=== PATIENT | female | born 1950 | race Caucasian/White ===

== ENCOUNTER 2023-06-29 13:07 | Outpatient (OUT) | payer MEDICARE, SELFPAY ==
--- NOTE | 2023-06-29 16:17 | PM.CN ---
Consult Note: HPI Data of Consult Patient: new to practice Consult date: 06/29/23 Requesting Physician: Sacha Good MD Primary Care Provider: CAR BLANCO Consult Narrative Reason for consult: right low back, right hip pain Narrative: 73yof who presents for evaluation. worsening right low back and hip pain. tender to palpation over right greater trochanter. engages in provider directed home exercise course >6 weeks >3x/week, with minimal benefit. uses otc pain medications as needed. lumbar imaging reviewed, which is significant for significant facet arthropathy in lower lumbar spine, as well as stenosis at l4-5 and l5-s1. denies adverse med side effects. cc:: CC: Sacha Good MD Review of Systems ROS Status of ROS 10 or more systems reviewed and unremarkable except as noted in history and below Exam Narrative Exam Narrative: Psych-alert and oriented x 3. Attentive and appropriate, constitutionally normal, displays normal mood and affect per situation.? There are no obvious deficits in memory, reasoning, or intellect.? Skin-no obvious rashes, bruising, erythema noted to the patient's area of pain. Extremities- extremities are warm with minimal edema and palpable pulses. Lumbar- tenderness to palpation noted in the lumbar spine and paraspinal musculature.?Tender to palpation over right greater trochanter. Pain is elicited with extension, and lateral rotation of the lumbar spine. Range of motion is slightly diminished with these motions due to pain. Facet loading maneuvers are positive bilaterally and do appear to be concordant with the patient's normal complaints of pain.? Coordination remains intact.? Gait remains non-antalgic. Assessment and Plan Assessment and Plan (1) Lumbar spondylosis: (2) Lumbar stenosis with neurogenic claudication: (3) Sacroiliac joint disease: (4) Trochanteric bursitis of right hip: Plan 73yof who presents for evaluation. failed conservative measures. imaging reviewed, as noted. given symptoms and exam findings, will trial right greater troch bursa injection. she is in agreement. if pain persists, given tenderness over right psis, may require block of nerve innervating sij. she expressed understanding. meds reviewed, no changes. follow up in 4 weeks. Procedure: Right greater troch bursa injection Medications: Bupivacaine 0.25% 4cc, kenalog 40mg I explained the details of the procedure to the patient including the risks, benefits and alternatives. We had an informed discussion and the patient verbalized understanding and signed the consent form. All questions were answered appropriately.? A time out was performed.?The skin overlying the right lateral hip were prepped with alcohol x3. A sterile syringe containing the above medications was attached to a 25 guage, 3.5 inch needle under strict aseptic technique. The greater trochanter and point of tenderness was palpated. At this point, the needle was than advanced through the subcutaneous tissue down to os. The needle was withdrawn slightly and the contents of the syringe were gently injected without any resistance. The needle was removed and pressure was applied to the injection site to decrease the incidence of ecchymosis and hematoma formation.? A sterile bandage was applied.
== END 2023-06-29 13:08 | disposition home or self-care (01) ==
PROVIDERS: PCP Family Medicine; Visit Provider Anesthesiology
DX: M47.816 Spondylosis without myelopathy or radiculopathy, lumbar region (principal); M48.062 Spinal stenosis, lumbar region with neurogenic claudication; M53.3 Sacrococcygeal disorders, not elsewhere classified; M70.61 Trochanteric bursitis, right hip
CPT/HCPCS: 20610

== ENCOUNTER 2023-07-27 14:28 | Outpatient (OUT) | payer MEDICARE, SELFPAY ==
--- NOTE | 2023-07-27 15:46 | PM.CN ---
Consult Note: HPI Data of Consult Patient: known to practice within the last 3 years Consult date: 07/27/23 Requesting Physician: Yulissa Bro NP Primary Care Provider: CAR BLANCO Consult Narrative Reason for consult: low back, right hip and leg pain Narrative: 73yof who presents for assessment. notes significant relief temporarily after her right troch bursa injection. continues to now have symptoms into right hip and leg. imaging reviewed, which is significant for multiple levels of stenosis, worst at l3-4 and l4-5. continues in provider directed home exercise program >6 weeks >3x/week, with limited benefit. continues to use otc meds as needed. cc:: CC: Yulissa Bro NP Review of Systems ROS Status of ROS 10 or more systems reviewed and unremarkable except as noted in history and below Meds Home Medications and Allergies Home Medications Medication Instructions Recorded Confirmed Type alprazolam 0.5 mg tablet 0.5 mg PO DAILY 07/02/23 07/02/23 History cholestyramine (with sugar) 4 gram ea 07/02/23 History oral powder levothyroxine 125 mcg capsule 125 mcg PO DAILY 07/02/23 07/02/23 History rosuvastatin 40 mg tablet 40 mg PO DAILY 07/02/23 07/02/23 History rosuvastatin 40 mg tablet (Crestor) 40 mg PO DAILY 07/02/23 07/02/23 History sertraline 50 mg tablet 50 mg PO DAILY 07/02/23 07/02/23 History Allergies Allergy/AdvReac Type Severity Reaction Status Date / Time No Known Drug Allergies Allergy Verified 07/02/23 07:51 Exam Narrative Exam Narrative: Psych-alert and oriented x 3. Attentive and appropriate, constitutionally normal, displays normal mood and affect per situation. There are no obvious deficits in memory, reasoning, or intellect.? Skin-no obvious rashes, bruising, erythema noted to the patient's area of pain.? Extremities- extremities are warm with minimal edema and palpable pulses. Lumbar-tenderness to palpation noted in the lumbar spine and paraspinal musculature. Pain is elicited with flexion, extension, and lateral rotation of the lumbar spine. Range of motion is diminished with these motions. Facet loading maneuvers are positive.? Strength-noted to be unremarkable with the exception of decreased strength rated at 4 out of 5 in right quadriceps femoris, anterior tibialis. Sensory-no notable sensory deficits in the bilateral lower extremities to touch or pinprick in all dermatomal distributions with the exception to decreased sensation to the right L3, 4, 5 dermatomal distribution Sacroiliac: Tenderness to palpation of right PSIS. Right thigh thrust positive. Right Gregor's test positive. Coordination remains intact.? Gait remains non-antalgic. Assessment and Plan Assessment and Plan (1) Lumbar stenosis with neurogenic claudication: (2) Sacroiliac joint disease: Plan 73yof who presents for assessment. failed conservative measures, as noted. imaging reviewed, as noted. given symptoms and imaging, prudent to attempt right l3-4, l4-5 tfesi under fluoroscopic guidance. would also likely benefit from right SI joint injection. she is in agreement. medications reviewed, no changes. follow up after procedure.
== END 2023-07-27 14:29 | disposition home or self-care (01) ==
PROVIDERS: PCP Family Medicine; Visit Provider Anesthesiology
DX: M48.062 Spinal stenosis, lumbar region with neurogenic claudication (principal); M53.3 Sacrococcygeal disorders, not elsewhere classified
CPT/HCPCS: G0463

== ENCOUNTER 2023-08-31 07:49 | Day surgery (SDC) | payer MEDICARE, SELFPAY ==
--- OUTSIDE RECORDS SUMMARY | 2023-08-31 07:52 | XMS_ITS | CCD ---
Author Name Unknown Address [facility] [address] [place] [address] Organization [facility] Care Team Providers Care Roll Scale Worker Name Role Phone JOSHUA CARY Attending Unavailable BUNTING, CAR R Primary Care Unavailable ZANOTTI, JOSHUA Attending Unavailable BUNTING, CAR R Primary Care Unavailable ZANOTTI, JOSHUA Attending Unavailable BUNTING, CAR R Primary Care Unavailable ZANOTTI, JOSHUA Admitting Unavailable ZANOTTI, JOSHUA Attending Unavailable BUNTING, CAR R Primary Care Unavailable ZANOTTI, JOSHUA Admitting Unavailable ZANOTTI, JOSHUA Attending Unavailable BUNTING, CAR R Primary Care Unavailable ZANOTTI, JOSHUA Attending Unavailable BUNTING, CAR R Primary Care Unavailable BUNTING, CAR R Primary Care Unavailable HARASTY, JOSHUA Attending Unavailable ZANOTTI, PONCHO Attending Unavailable BUNTING, CAR R Primary Care Unavailable ZANOTTI, JOSHUA Attending Unavailable BUNTING, CAR R Primary Care Unavailable ZANOTTI, JOSHUA Attending Unavailable BUNTING, CAR R Primary Care Unavailable ZANOTTI, JOSHUA Attending Unavailable BUNTING, CAR R Primary Care Unavailable ZANOTTI, JOSHUA Admitting Unavailable ZANOTTI, JOSHUA Attending Unavailable BUNTING, CAR R Primary Care Unavailable ZANOTTI, JOSHUA Attending Unavailable BUNTING, CAR R Primary Care Unavailable ZANOTTI, JOSHUA Admitting Unavailable ZANOTTI, JOSHUA Attending Unavailable BUNTING, CAR R Primary Care Unavailable Ag Mederos Unavailable Roger Khalil Unavailable DO Car Dong Primary Care Provider [phone] DO Arnold Hernandez Attending Provider [phone] MD Roger Khalil Attending Provider DO Segun Funk Attending Provider [phone] Bunting, DO Car Primary Care Provider Bunting, DO Car Attending Provider [phone] Itzkowitz, DO Arnold Attending Provider Joshua Valentin II Unavailable Bunting, DO Car Primary Care Provider Bunting, DO Car Attending Provider [phone] Itzkowitz, DO Arnold Attending Provider [phone] MD Joshua Valentin II Attending Provider [phone] Bunting, DO Car Primary Care Provider TI PIERRE Attending Unavailable Bunting, DO Car Primary Care Provider Bunting, DO Car Attending Provider Itzkowitz, Arnold Attending Unavailable Itzkowitz, Arnold Admitting Unavailable Bunting, Car Primary Care Unavailable Bunting, Car Admitting Unavailable Bunting, Car Primary Care Unavailable Bunting, Car Attending Unavailable Bunting, Car Attending Unavailable Bunting, Car Admitting Unavailable Bunting, Car Primary Care Unavailable Bunting, Car Attending Unavailable Bunting, Car Admitting Unavailable Bunting, Car Primary Care Unavailable [place] II, Joshua Wells Admitting Unavailabl e [place] II, Joshua Wells Attending Unavailabl e Bunting, Car Primary Care Unavailable [place] II, Joshua Wells Admitting Unavailabl e Homero II, Joshua Wells Attending Unavailabl e Bunting, Car Primary Care Unavailable Bunting, Car Primary Care Unavailable Itzkowitz, Arnold Admitting Unavailable Itzkowitz, Arnold Attending Unavailable Bunting, Car Attending Unavailable Bunting, Car Admitting Unavailable Bunting, Car Primary Care Unavailable Segun Funk Admitting Unavailable Segun Funk Attending Unavailable Bunting, Car Primary Care Unavailable Roger Khalil Admitting Unavailable Roger Khalil Attending Unavailable Bunting, Car Primary Care Unavailable Florentino MARTELL, Sacha Masters Attending Unavailable Florentino MARTELL, Sacha Masters Attending Unavailable Medications Current Medications Medication Drug Class(es) Dates Sig (Normalized) Sig (Original) acetaminophen 500 mg oral tablet (3 sources) take 1 tablet by mouth every six hours as needed Acetaminophen 500 MG 1 tablet as needed Orally every 6 hrs Active acetaminophen 325 mg / HYDROcodone bitartrate 5 mg oral tablet (6 sources) Opioid Agonist Start: 01-06-2022 take 1-2 tablets by mouth every six hours as needed for pain Hydrocodone-Acetami nophen Active 2 TAB PO Q6H 30 7 January 06, 2022 1-2 tabs po q 6 hours prn pain ALPRAZolam 0.5 mg oral tablet (15 sources) Benzodiazepine Start: 12-14-2020 take 0.5 mg by mouth once daily Alprazolam Active 0.5 MG PO Daily December 14, 2020 12:00am amitriptyline hydrochloride 50 mg oral tablet (15 sources) Tricyclic Antidepressant Start: 12-14-2020 take 50 mg by mouth once daily at bedtime Amitriptyline Active 50 MG PO Daily at bedtime December 14, 2020 12:00am ascorbic acid 500 mg oral tablet (6 sources) Vitamin C Start: 12-23-2021 take 1 tablet by mouth once daily Ascorbic Acid (Vitamin C) (Vitamin C) 500 mg Tablet Active 500 MG PO Daily December 23, 2021 12:00am cholecalciferol 0.05 mg oral tablet (6 sources) Vitamin D Start: 12-23-2021 take 1 tablet by mouth once daily Cholecalciferol (Vitamin D3) (Vitamin D3) 50 mcg (2,000 unit) Tablet Active 2000 UNIT PO Daily December 23, 2021 12:00am dicyclomine hydrochloride 20 mg oral tablet (6 sources) Anticholinergic Start: 02-11-2021 take 1 tablet by mouth every eight hours Dicyclomine HCl 20 MG 1 tablet Orally Three times a day for 30 day(s) Jan, Active gabapentin 300 mg oral capsule (12 sources) Anti-epileptic Agent Start: 12-14-2020 take 300 mg by mouth twice daily Gabapentin Active 300 MG PO Twice daily December 14, 2020 12:00am levothyroxine sodium 0.125 mg oral tablet (15 sources) l-Thyroxine Start: 12-14-2020 take 125 ug by mouth once daily Levothyroxine Active 125 MCG PO Daily December 14, 2020 12:00am take 1 tablet by charisse th once daily in the morning Levothyroxine Sodium 125 MCG 1 tablet in the morning on an empty stomach Orally Once a day Active 24 hr metoprolol succinate 25 mg extended release oral capsule (15 sources) beta-Adrenergic Jeannette Start: 12-14-2020 take 25 mg by mouth once daily Metoprolol Succinate Active 25 MG PO Daily December 14, 2020 12:00am take 1 capsule by mouth once hilda ly Metoprolol Succinate 25 MG 1 capsule Orally Once a day Active Psyllium (6 sources) Start: 12-23-2021 Psyllium Activ e 1 PACKET PO Daily December 22, 2021 11:00pm Start: 12-23-2021 Psyllium Activ e 1 PACKET PO Daily December 23, 2021 12:00am rosuvastatin calcium 20 mg oral tablet (12 sources) HMG-CoA Reductase Inhibitor Start: 12-14-2020 take 20 mg by mouth once daily at bedtime Rosuvastatin Active 20 MG PO Daily at bedtime December 14, 2020 12:00am sertraline 50 mg oral tablet (9 sources) Serotonin Reuptake Inhibitor Start: 12-14-2020 take 50 mg by mouth once daily at bedtime Sertraline Active 50 MG PO Daily at bedtime December 14, 2020 12:00am vitamin K2 (6 sources) Start: 12-23-2021 take 100 ug by mouth once daily Vitamin K2 Active 100 MCG PO Daily December 22, 2021 11:00pm Start: 12-23-2021 take 100 ug by mouth once shama y Vitamin K2 Active 100 MCG PO Daily December 23, 2021 12:00am Completed/Discontinued Medications Medication Drug Class(es) Dates Sig (Normalized) Sig (Original) Triamcinolone (18 sources) Corticosteroid Start: 01-26-2020 KENALOG - 10 m g Jan, 40 mg Start: 12-05-2019 KENALOG - 10 m g Nov, 40 mg Problems Active Problems Problem Classification Problem Date Documented Da te Episodic/Chronic Acquired foot deformities (9 sources) Hammer toe; Translations: [Other hammer toe(s) (acquired), unspecified foot] Chronic Disorders of lipid metabolism (11 sources) Hyperlipidemia, unspecified; Translations: [Mixed hyperlipidemia] Onset: 06-01-2018 Chronic Essential hypertension (10 sources) Essential (primary) hypertension; Translations: [Essential hypertension] Onset: 06-01-2018 Chronic Headache; including migraine (9 sources) Migraine with aura; Translations: [Migraine with aura, not intractable, without status migrainosus] Chronic Hemorrhoids (6 sources) Hemorrhoids; Translations: [Unspecified hemorrhoids] 01-06-2022 Episodic Mood disorders (18 sources) Depressive disorder; Translations: [Major depressive disorder, single episode, unspecified] Chronic Mood disorders (1 source) Major depressive disorder, single episode, unspecified Onset: 06-01-2018 Nutritional deficiencies (9 sources) Vitamin D deficiency; Translations: [Vitamin D deficiency, unspecified] Chronic Osteoarthritis (12 sources) Primary osteoarthritis, unspecified shoulder; Translations: [Unspecified osteoarthritis, unspecified site] Onset: 06-01-2018 Chronic Other bone disease and musculoskeletal deformities (9 sources) Osteopenia; Translations: [Other specified disorders of bone density and structure, other site] Episodic Other connective tissue disease (1 source) Bursitis of unspecified shoulder Onset: 08-11-2018 Episodic Other connective tissue disease (1 source) Other bursitis of hip, right hip Episodic Other connective tissue disease (1 source) Trochanteric bursitis, right hip Episodic Other diseases of kidney and ureters (9 sources) Renal impairment; Translations: [Disorder of kidney and ureter, unspecified] Episodic Other gastrointestinal disorders (18 sources) Irritable bowel syndrome; Translations: [Mixed irritable bowel syndrome] Chronic Other gastrointestinal disorders (9 sources) Dysphagia; Translations: [Dysphagia, unspecified] Episodic Other hereditary and degenerative nervous system conditions (18 sources) Restless legs; Translations: [Restless legs syndrome] Chronic Other nervous system disorders (15 sources) Chronic pain; Translations: [Other chronic pain] Chronic Other nervous system disorders (9 sources) Peripheral nerve disease ; Translations: [Polyneuropathy, unspecified] Chronic Other nervous system disorders (9 sources) Mononeuritis; Translations: [Mononeuropathy, unspecified] Chronic Other nervous system disorders (9 sources) Mortons neuroma of right foot; Translations: [Lesion of plantar nerve, right lower limb] Chronic Other nervous system disorders (2 sources) Other chronic pain Onset: 02-11-2022 Resolved: 03-10-2022 Chronic Other nervous system disorders (2 sources) Lesion of sciatic nerve, right lower limb; Translations: [Lesion of sciatic nerve, right lower limb] Onset: 10-27-2022 Chronic Other non-traumatic joint disorders (18 sources) Hip pain; Translations: [Pain in right hip] Episodic Other non-traumatic joint disorders (3 sources) Pain in right hip Onset: 01-21-2022 Resolved: 01-21-2022 Episodic Other skin disorders (9 sources) Lichen sclerosus et atrophicus; Translations: [Lichen sclerosus et atrophicus] Chronic Other upper respiratory disease (9 sources) Allergic rhinitis due to pollen; Translations: [Allergic rhinitis due to pollen] Chronic Residual codes; unclassified (9 sources) Postmenopausal state; Translations: [Asymptomatic menopausal state] Episodic Rheumatoid arthritis and related disease (9 sources) Rheumatoid arthritis - hand joint; Translations: [Rheumatoid arthritis, unspecified] Chronic Spondylosis; intervertebral disc disorders; other back problems (17 sources) Lumbar spondylosis; Translations: [Spondylosis without myelopathy or radiculopathy, lumbar region] Onset: 01-21-2022 Resolved: 03-10-2022 Chronic Spondylosis; intervertebral disc disorders; other back problems (20 sources) Low back pain; Translations: [Low back pain, unspecified back pain laterality, unspecified chronicity, unspecified whether sciatica present] Onset: 10-27-2022 Episodic Thyroid disorders (9 sources) Acquired hypothyroidism; Translations: [Hypothyroidism, unspecified] Chronic Unclassified (1 source) Irritable bowel syndrome without diarrhea Onset: 06-01-2018 Unclassified (3 sources) Primary osteoarthritis, right shoulder; Translations: [Primary osteoarthritis, right shoulder] Onset: 09-06-2018 Unclassified (3 sources) Impingement syndrome of left shoulder; Translations: [Impingement syndrome of left shoulder] Onset: 08-11-2018 Unclassified (1 source) Pain in left shoulder Onset: 08-11-2018 Unclassified (3 sources) Encounter for other preprocedural examination; Translations: [Encounter for other preprocedural examination] Onset: 05-27-2018 Unclassified (3 sources) Primary osteoarthritis, left shoulder; Translations: [Primary osteoarthritis, left shoulder] Onset: 07-22-2018 Unclassified (1 source) Bursitis of right shoulder Onset: 08-05-2018 Unclassified (1 source) Other sprain of left shoulder joint, subsequent encounter Onset: 07-22-2018 Unclassified (1 source) Strain of musc/fasc/tend long head of biceps, left arm, subs Onset: 07-22-2018 Unclassified (3 sources) Complete rotatr-cuff tear/ruptr of left shoulder, not trauma; Translations: [Complete rotatr-cuff tear/ruptr of left shoulder, not trauma] Onset: 06-24-2018 Unclassified (1 source) Pain in right shoulder Onset: 06-24-2018 Unclassified (3 sources) Unsp rotatr-cuff tear/ruptr of left shoulder, not trauma; Translations: [Unsp rotatr-cuff tear/ruptr of left shoulder, not trauma] Onset: 05-31-2018 Unclassified (1 source) Other sprain of left shoulder joint, initial encounter Onset: 06-01-2018 Unclassified (1 source) Laceration of musc/fasc/tend long hd bicep, left arm, init Onset: 06-01-2018 Unclassified (1 source) Presence of left artificial shoulder joint Onset: 01-11-2018 Unclassified (3 sources) Bursitis of left shoulder; Translations: [Bursitis of left shoulder] Onset: 01-11-2018 Unclassified (1 source) Scoliosis, unspecified Onset: 06-01-2018 Unclassified (1 source) Other intervertebral disc degeneration, thoracic region; Translations: [Other intervertebral disc degeneration, thoracic region] Onset: 01-14-2023 Unclassified (1 source) Low back pain, unspecified; Translations: [Low back pain, unspecified] Onset: 11-21-2022 Unclassified (1 source) Other bursitis of hip, right hip; Translations: [Other bursitis of hip, right hip] Onset: 08-22-2022 Unclassified (1 source) Pain in right hip; Translations: [Pain in right hip] Onset: 07-02-2022 Unclassified (1 source) M25.551 - Pain in right hip; Translations: [M25.551 - Pain in right hip] Onset: 02-11-2022 Unclassified (1 source) R59.0 - Localized enlarged lymph nodes; Translations: [R59.0 - Localized enlarged lymph nodes] Onset: 02-10-2022 Past or Other Problems Problem Classification Problem Date Documented Da te Episodic/Chronic Lymphadenitis (1 source) Localized enlarged lymph nodes; Translations: [Localized enlarged lymph nodes] Onset: 06-02-2022 Episodic Other and unspecified benign neoplasm (1 source) Personal history of colonic polyps; Translations: [Personal history of colonic polyps] Onset: 03-27-2022 Episodic Other connective tissue disease (1 source) Primary fibromyalgia syndrome Onset: 06-01-2018 Episodic Other non-epithelial cancer of skin (1 source) Personal history of other malignant neoplasm of skin Onset: 06-01-2018 Episodic Other non-traumatic joint disorders (1 source) Pain in left hip Onset: 01-21-2022 Resolved: 01-21-2022 Episodic Other non-traumatic joint disorders (1 source) Pain in unspecified hip Onset: 02-11-2022 Resolved: 02-11-2022 Episodic Thyroid disorders (1 source) Disorder of thyroid, unspecified Onset: 06-01-2018 Episodic Unclassified (2 sources) Other low back pain M54.59 Onset: 02-11-2022 Resolved: 03-10-2022 Results Test Name Value Interpretation Reference Range Facility XR thoracic spine 3V*on 12-23 XR thoracic spine 3V* [facility] [place] [address] [place] [address] XRay Report Signed Patient: Chiquis Walker MR#: [id number] : 1950 Acct:[id number] Age/Sex: 72 / F ADM Date: 01/14/23 Loc: XD Room: Type: [facility] Attending Dr: Car Dong DO Copies to: Car Dong DO Ordering Provider: Car Dong DO Date of Service: 01/14/23 XR/XR thoracic spine 3V*: THORACIC DJD THORACIC SPINE - 3 views: CLINICAL HISTORY: Recent abnormal outside chest x-ray with calcification near T6. COMPARISON: Chest x-ray 10/23/2016 AP, lateral and swimmer's views were obtained. There is osteopenia. There is subtle dextroscoliotic curvature. There is minor wedge deformity at T12 which is chronic. No additional compression fractures are noted. No displacement is seen. There is no disproportionate disc space narrowing. There is minimal endplate spurring. The pedicles are intact. There are no paraspinal soft tissue abnormalities. There is a distal right paratracheal calcified granuloma that may be the calcification described on outside imaging. There are also right hilar and pulmonary calcified granulomas. Patient has a left shoulder prosthesis. XR/XR thoracic spine 3V* IMPRESSION: OSTEOPENIA, SUBTLE SCOLIOSIS AND MINIMAL DEGENERATIVE CHANGE. GRANULOMATOUS CHANGES. Impression dictated by: Roopa Skinner M.D.01/14/2023 2:24 PM Dictation Location: [facility]--14 Transcribed By: BIBI 01/14/23 1424 Dictated By: Roopa Skinner MD 01/14/23 1419 Signed By: 01/14/23 1424 Normal [facility] Alanine aminotransferase [En zymatic activity/volume] in Serum or PlasmaOrdered By: Car Bunting on 11-21-2022 ALT [Catalytic activity/Vol] 11 U/L 7-52 [facility] Albumin [Mass/volume] in Ser um or Plasma by Bromocresol green (BCG) dye binding methoOrdered By: Car Bunting on 11-21-2022 Albumin BCG dye [Mass/Vol] 4.4 g/dL 3.5-5.7 [facility] Alkaline phosphatase [Enzyma tic activity/volume] in Serum or PlasmaOrdered By: Car Bunting on 11-21-2022 ALP [Catalytic activity/Vol] 58 U/L 34-104 [facility] Aspartate aminotransferase [ Enzymatic activity/volume] in Serum or PlasmaOrdered By: Car Bunting on 11-21-2022 AST [Catalytic activity/Vol] 15 U/L 13-39 [facility] Bilirubin.total [Mass/volume ] in Serum or PlasmaOrdered By: Car Bunting on 11-21-2022 Bilirubin [Mass/Vol] 0.5 mg/dL 0.3-1.0 [facility] Calcium [Mass/volume] in Ser um or PlasmaOrdered By: Car Bunting on 11-21-2022 Calcium [Mass/Vol] 9.8 mg/dL 8.6-10.3 [facility] Carbon dioxide, total [Moles /volume] in Serum or PlasmaOrdered By: Car Bunting on 11-21-2022 CO2 [Moles/Vol] 28.4 mmol/L 21.0-31.0 [facility] Chloride [Moles/volume] in S satish or PlasmaOrdered By: Car Dong on 11-21-2022 Chloride [Moles/Vol] 106 mmol/L 98-107 [facility] Cholesterol [Mass/volume] in Serum or PlasmaOrdered By: Car Dong on 11-21-2022 Cholesterol [Mass/Vol] 254 mg/dL 140-200 [facility] Comment on above: Chol less than 200 m g/dl low riskChol 201-239 mg/dl borderline riskChol 240 mg/dl and greater high risk Cholesterol in LDL Calc [Mas s/Vol]Ordered By: Car Dong on 11-21-2022 Cholesterol in LDL [Mass/Vol] 146 mg/dL 0-100 [facility] Comment on above: LDL ATP III CLASSIFI CATIONLDL less than 100 mg/dL OptimalLDL 100-129 mg/dL Near or above optimalLDL 130-159 mg/dL Borderline highLDL 160-189 mg/dL HighLDL greater than 189 mg/dL Very high Cholesterol in VLDL Calc [Ma ss/Vol]Ordered By: Car Dong on 11-21-2022 Cholesterol in VLDL [Mass/Vol] 44 mg/dL [facility] Comprehensive Metabolic Pane grant 11-21-2022 Albumin [Mass/Vol] 4.4 g/dL Normal 3.5-5.7 [facility] Comment on above: Performed By: #### T 4F, TSH3, CMP, LIPID #### [facility] [address] [place] [address] [place] Albumin/Globulin [Mass ratio] 1.9 {ratio} Normal [facility] Comment on above: Performed By: #### T 4F, TSH3, CMP, LIPID #### [facility] [address] [place] [address] [place] ALP [Catalytic activity/Vol] 58 U/L Normal 34-104 [facility] Comment on above: Performed By: #### T 4F, TSH3, CMP, LIPID #### [facility] [address] [place] [address] [place] ALT [Catalytic activity/Vol] 11 U/L Normal 7-52 [facility] Comment on above: Performed By: #### T 4F, TSH3, CMP, LIPID #### [facility] [address] Anion gap [Moles/Vol] 11.6 mmol/L Normal 6.0-15.0 [facility] Comment on above: Performed By: #### T 4F, TSH3, CMP, LIPID #### [facility] [address] AST [Catalytic activity/Vol] 15 U/L Normal 13-39 [facility] Comment on above: Performed By: #### T 4F, TSH3, CMP, LIPID #### [facility] [address] Bilirubin [Mass/Vol] 0.5 mg/dL Normal 0.3-1.0 [facility] Comment on above: Performed By: #### T 4F, TSH3, CMP, LIPID #### [facility] [address] Calcium [Mass/Vol] 9.8 mg/dL Normal 8.6-10.3 [facility] Comment on above: Performed By: #### T 4F, TSH3, CMP, LIPID #### [facility] [address] [place] [address] [place] Chloride [Moles/Vol] 106 mmol/L Normal 98-107 [facility] Comment on above: Performed By: #### T 4F, TSH3, CMP, LIPID #### [facility] [address] [place] [address] [place] CO2 [Moles/Vol] 28.4 mmol/L Normal 21.0-31.0 [facility] Comment on above: Performed By: #### T 4F, TSH3, CMP, LIPID #### [facility] [address] [place] [address] [place] Creatinine [Mass/Vol] 0.89 mg/dL Normal 0.60-1.20 [facility] Comment on above: Performed By: #### T 4F, TSH3, CMP, LIPID #### [facility] [address] [place] [address] [place] GFR/1.73 sq M.predicted MDRD (S/P/Bld) [Vol rate/Area] mL/min/{1.73_m2} Normal [facility] Comment on above: Performed By: #### T 4F, TSH3, CMP, LIPID #### [facility] [address] Globulin (S) [Mass/Vol] 2.3 g/dL Normal [facility] Comment on above: Performed By: #### T 4F, TSH3, CMP, LIPID #### [facility] [address] Glucose [Mass/Vol] 77 mg/dL Normal 70-100 [facility] Comment on above: Result Comment: [facility] Glucose Reference Range is dependent on time and content of last meal. Glucose of more than 200 mg/dL in a nonstressed, ambulatory subject supports the diagnosis of Diabetes Mellitus. ADA recommended reference range Performed By: #### T 4F, TSH3, CMP, LIPID #### [facility] [address] Potassium [Moles/Vol] 4.0 mmol/L Normal 3.5-5.1 [facility] Comment on above: Performed By: #### T 4F, TSH3, CMP, LIPID #### [facility] [address] Protein [Mass/Vol] 6.7 g/dL Normal 6.4-8.9 [facility] Comment on above: Performed By: #### T 4F, TSH3, CMP, LIPID #### [address] Sodium [Moles/Vol] 142 mmol/L Normal 136-145 [facility] Comment on above: Performed By: #### T 4F, TSH3, CMP, LIPID #### [facility] [address] Urea nitrogen [Mass/Vol] 11 mg/dL Normal 7-25 [facility] Comment on above: Performed By: #### T 4F, TSH3, CMP, LIPID #### [facility] [address] [place] [address] [place] Creatinine [Mass/volume] in Serum or PlasmaOrdered By: Car Dong on 11-21-2022 Creatinine [Mass/Vol] 0.89 mg/dL 0.60-1.20 [facility] Free T4 (Free Thyroxine)on 0 11-21-2022 Free T4 [Mass/Vol] 1.35 ng/dL High 0.61-1.12 [facility] Comment on above: Performed By: #### T 4F, TSH3, CMP, LIPID #### [facility] [address] Globulin Calc (S) [Mass/Vol] Ordered By: Car Bunkenji on 11-21-2022 Globulin (S) [Mass/Vol] 2.3 g/dL [facility] Glucose [Mass/volume] in Ser um or PlasmaOrdered By: Car Dong on 11-21-2022 Glucose [Mass/Vol] 77 mg/dL 70-100 [facility] Comment on above: ADA recommended refe rence rangeRandom Glucose Reference Range is dependent on time and content of last meal. Glucose of more than 200 mg/dL in a nonstressed, ambulatory subject supports the diagnosis of Diabetes Mellitus. Lipid Panelon 11-21-2022 Cholesterol [Mass/Vol] 254 mg/dL High 140-200 [facility] Comment on above: Result Comment: Chol less than 200 mg/dl low risk Chol 201-239 mg/dl borderline risk Chol 240 mg/dl and greater high risk Performed By: #### T 4F, TSH3, CMP, LIPID #### [facility] [address] [place] [id number] [facility] Cholesterol in HDL [Mass/Vol] 63 mg/dL Normal 35-85 [facility] Comment on above: Result Comment: HDL CHOL ATP-III CLASSIFICATION Cardiovascular Risk HDL > or equal to 60 mg/dL LOW HDL < 40 mg/dL HIGH Performed By: #### T 4F, TSH3, CMP, LIPID #### [facility] [address] [place] [address] [facility] Cholesterol.total/Gia sterol in HDL [Mass ratio] 4.0 {ratio} Normal <5.0 [facility] Comment on above: Performed By: #### T 4F, TSH3, CMP, LIPID #### [facility] [address] LDL Cholesterol,Calculated 146 mg/dL High 0-100 [facility] Comment on above: Result Comment: LDL ATP III CLASSIFICATION LDL less than 100 mg/dL Optimal LDL 100-129 mg/dL Near or above optimal LDL 130-159 mg/dL Borderline high LDL 160-189 mg/dL High LDL greater than 189 mg/dL Very high Performed By: #### T 4F, TSH3, CMP, LIPID #### [facility] [address] Triglyceride w/Reflex 224 mg/dL High 0-149 [facility] Comment on above: Result Comment: TRIG ATP III CLASSIFICATION TRIG less than 150 mg/dL Normal TRIG 150-199 mg/dL Borderline high TRIG 200-500 mg/dL High TRIG greater than 500 mg/dL Very high Standard traceable to the Center for Disease Conrtrol and Prevention (CDC) test method. Performed By: #### T 4F, TSH3, CMP, LIPID #### [facility] [address] VLDL CHOLESTEROL 44 mg/dL Normal [facility] Comment on above: Performed By: #### T 4F, TSH3, CMP, LIPID #### [facility] [address] No Panel InformationOrdered By: Car Bunting on 11-21-2022 Estimated GFR (CKD-EPI) > 60.0 mL/Min [facility] Creatinine Clearance (Chem N/A [facility] Potassium [Moles/volume] in Serum or PlasmaOrdered By: Car Bunting on 11-21-2022 Potassium [Moles/Vol] 4.0 mmol/L 3.5-5.1 [facility] Protein [Mass/volume] in Ser um or PlasmaOrdered By: Car Bunting on 11-21-2022 Protein [Mass/Vol] 6.7 g/dL 6.4-8.9 [facility] Serum or plasma albumin/glob ulin mass ratioOrdered By: Car Bunting on 11-21-2022 Albumin/Globulin [Mass ratio] 1.9 {ratio} [facility] Serum or plasma anion gap de terminationOrdered By: Car Bunkenji on 11-21-2022 Anion gap [Moles/Vol] 11.6 mmol/L 6.0-15.0 [facility] Serum or plasma high density lipoprotein (HDL) cholesterol measurementOrdered By: Car Bunting on 11-21-2022 Cholesterol in HDL [Mass/Vol] 63 mg/dL 35-85 [facility] Comment on above: HDL CHOL ATP-III CLA SSIFICATION Cardiovascular RiskHDL > or equal to 60 mg/dL LOWHDL < 40 mg/dL HIGH Serum or plasma total choles terol/high density lipoprotein (HDL) cholesterol mass ratOrdered By: Car Bunting on 11-21-2022 Cholesterol.total/Gia sterol in HDL [Mass ratio] 4.0 {ratio} <5.0 [facility] Sodium [Moles/volume] in Ser um or PlasmaOrdered By: Car Bunting on 11-21-2022 Sodium [Moles/Vol] 142 mmol/L 136-145 [facility] Thyroid Stimulating Hormoneo n 11-21-2022 TSH Qn 8.21 m[IU]/L High 0.45-5.33 [facility] Comment on above: Result Comment: PERF ORMED BY: [place] [address] PATHOLOGIST ARM MAKER MADIHA HAILE M.D. Performed By: #### T 4F, TSH3, CMP, LIPID #### [address] Thyrotropin [Units/volume] i n Serum or PlasmaOrdered By: Car Bunting on 11-21-2022 TSH Qn 8.21 m[IU]/L 0.45-5.33 [facility] Thyroxine (T4) free [Mass/vo lume] in Serum or PlasmaOrdered By: Car Bunting on 11-21-2022 Free T4 [Mass/Vol] 1.35 ng/dL 0.61-1.12 [facility] Triglyceride [Mass/volume] i n Serum or PlasmaOrdered By: Car Bunting on 11-21-2022 Triglyceride [Mass/Vol] 224 mg/dL 0-149 [facility] Comment on above: TRIG ATP III CLASSIF ICATIONTRIG less than 150 mg/dL NormalTRIG 150-199 mg/dL Borderline highTRIG 200-500 mg/dL High TRIG greater than 500 mg/dL Very highStandard traceable to the Center for Disease Conrtrol and Prevention (CDC) test method. Urea nitrogen [Mass/volume] in Serum or PlasmaOrdered By: Car Dong on 11-21-2022 Urea nitrogen [Mass/Vol] 11 mg/dL 7 [facility] Consulton 10-27-2022 Consult [id number] Chiquis Walker 1950 F Date Provider Department Center 10/27/2022 TI LIM MP ORTHO MPORTHO No family history on file Level of Service:37018 [place] OFFICE/OUTPATIENT NEW MODERATE MDM 45-59 MINUTES Reason for Visit and Comments: Pain [136] Normal [facility] MR hip RT wo conon 2 MR hip RT wo con [place] [address] MRI Report Signed Patient: Chiquis Walker MR#: [id number] : 1950 Acct:[id number] Age/Sex: 72 / F ADM Date: 08/22/22 Loc: [facility] Room: Type: [facility] Attending Dr: Joshua Valentin II, MD Copies to: Joshua Valentin MD Ordering Provider: Joshua Valentin MD Date of Service: 08/22/22 MR/MR hip RT wo con: Ischial bursitis of right side MRI the RIGHT hip without contrast TECHNIQUE: Routine HISTORY: RIGHT hip pain and RIGHT buttocks and burning for one year. RIGHT lower extremity weakness. History of RIGHT hip tendon and ligament repair. COMPARISON: Plain film imaging 07/02/22 No bone marrow edema identified. No fracture. Adequate bony alignment. No bony lesion present. Bony structures intact. No periosteal reaction. The gluteal tendons are intact. Mild adjacent inflammatory changes of the gluteal tendon near the greater trochanter present. Consider mild tendinopathy. May also consider greater trochanter bursitis. No labral abnormality identified. Normal signal intensity of the musculature present. No subcutaneous abnormality identified. Intrapelvic structures are unremarkable. MR/MR hip RT wo con IMPRESSION: Mild inflammation adjacent to the greater trochanter. Consider bursitis and mild tendinopathy of the gluteus tendons. Impression dictated by: Stephan Bowie M.D.08/22/2022 3:21 PM Dictation Location: [employer] Transcribed By: [facility] 08/22/22 152 Dictated By: Stephan Bowie DO 08/22/22 1442 Signed By: 08/22/22 152 [facility] XR hip RT min 2V(w/wo pelvis )*on 07-02-2022 XR hip RT min 2V(w/wo pelvis)* [facility] [address] [place] [address] [place] [address] XRay Report Signed Patient: Chiquis Walker MR#: [id number] : 1950 Acct:[id number] Age/Sex: 72 / F ADM Date: 07/02/22 Loc: [facility] Room: Type: [facility] Attending Dr: Joshua Valentin II, MD Copies to: Joshua Valentin MD Ordering Provider: Joshua Valentin MD Date of Service: 07/02/22 XR/XR hip RT min 2V(w/wo pelvis)*: Right hip pain 2 views the RIGHT hip single view pelvisplain film COMPARISON:None HISTORY:RIGHT hip pain for months No fracture, dislocation or focal soft tissue abnormality seen.No significant degeneration. Articular surfaces preserved. XR/XR hip RT min 2V(w/wo pelvis)* IMPRESSION:Unremarka ble exam Impression dictated by: Stephan Bowie M.D.07/02/2022 4:50 PM Dictation Location: [employer] Transcribed By: [facility] 07/02/221649 Dictated By: Stephan Bowie DO 07/02/221649 Signed By: 07/02/221649 [facility] XR hip RT min 2V(w/wo pelvis)* [facility] [employer] Other XR hip RT min 2V(w/wo pelvis)* [facility] [place] [employer] Other XR hip RT min 2V(w/wo pelvis)* [address] [facility] [employer] Other XR hip RT min 2V(w/wo pelvis)* [place] [address] [employer] Other XR hip RT min 2V(w/wo pelvis)* XRay Report [employer] Other XR hip RT min 2V(w/wo pelvis)* Signed [employer] Other XR hip RT min 2V(w/wo pelvis)* Patient: Chiquis Walker MR#: [id number] [employer] Other XR hip RT min 2V(w/wo pelvis)* 6495 [employer] Other XR hip RT min 2V(w/wo pelvis)* : 1950 Acct:[id number] [employer] Other XR hip RT min 2V(w/wo pelvis)* Age/Sex: 72 / F ADM Date: 07/02/22 [employer] Other XR hip RT min 2V(w/wo pelvis)* Loc: [facility] Room: Type: [facility] [employer] Other XR hip RT min 2V(w/wo pelvis)* Attending Dr: Joshua Valentin II, MD [employer] Other XR hip RT min 2V(w/wo pelvis)* Copies to: Joshua Valentin MD [employer] Other XR hip RT min 2V(w/wo pelvis)* Ordering Provider: Joshua Valentin MD [employer] Other XR hip RT min 2V(w/wo pelvis)* Date of Service: 07/02/22 [employer] Other XR hip RT min 2V(w/wo pelvis)* XR/XR hip RT min 2V(w/wo pelvis)*: Right hip pain [employer] Other XR hip RT min 2V(w/wo pelvis)* 2 views the RIGHT hip single view pelvisplain film [employer] Other XR hip RT min 2V(w/wo pelvis)* COMPARISON:None [employer] Other XR hip RT min 2V(w/wo pelvis)* HISTORY:RIGHT hip pain for months [employer] Other XR hip RT min 2V(w/wo pelvis)* No fracture, dislocation or focal soft tissue abnormality seen.No significant degeneration. [employer] Other XR hip RT min 2V(w/wo pelvis)* Articular surfaces preserved. [employer] Other XR hip RT min 2V(w/wo pelvis)* XR/XR hip RT min 2V(w/wo pelvis)* [employer] Other XR hip RT min 2V(w/wo pelvis)* IMPRESSION:Unremarka ble exam [employer] Other XR hip RT min 2V(w/wo pelvis)* Impression dictated by: Stephan Bowie M.D.07/02/2022 4:50 PM [employer] Other XR hip RT min 2V(w/wo pelvis)* Dictation Location: [place] [address] [employer] Other XR hip RT min 2V(w/wo pelvis)* Transcribed By: BIBI 07/02/22 8708 [employer] Other XR hip RT min 2V(w/wo pelvis)* Dictated By: Stephan Bowie DO 07/02/22 [facility]5 [employer] Other XR hip RT min 2V(w/wo pelvis)* Signed By: [employer] Other XR hip RT min 2V(w/wo pelvis)* 07/02/22 1650 [employer] Other US breast LT limitedon 06-02 US breast LT limited [facility] [address] [place] [address] [place] [address] Mammography Report Signed Patient: Chiquis Walker MR#: [id number] : 1950 Acct:[id number] Age/Sex: 72 / F ADM Date: 06/02/22 Loc: [place] Room: Type: [facility] Attending Dr: Arnold Hernandez DO Copies to: Car Dong,DO Arnold Hernandez DO Ordering Provider: Arnold Hernandez DO Date of Service: 06/02/22 MM/MM diagnostic mammo BI w/CAD: Yrly mamms;Enlarged lymph nodes in armpit ([id number]) US/US breast LT limited: . CLINICAL DATA: Left axillary pain and palpable lymph nodes. BILATERAL DIAGNOSTIC MAMMOGRAMS - FULL FIELD DIGITAL WITH TOMOSYNTHESIS AND CAD Tomosynthesis craniocaudal and mediolateral oblique views of both breasts were obtained using low- dose digital technique. Comparison is made to prior studies from August 22, 2016 through March 04, 2021. This examination was reviewed with the aid of CAD. The breast parenchyma has been largely replaced by fat. Benign and vascular calcifications are present. Benign-appearing nodularity is again seen. There are no developing masses, typically malignant calcifications or architectural distortion. There has been no significant interval change. LIMITED LEFT AXILLARY ULTRASOUND COMPARISON: August 07, 2021 and February 10, 2022 Real-time ultrasound evaluation at the left axilla was performed. Two lymph nodes nodes are again seen. There is a node with slightly thicker cortex measuring 12 x 5 x 11 mm, unchanged from the m ore recent comparison. The second lymph node has fatty hilus and measures 12 x 4 x 7 mm. The size is similar however the cortex appears thinner than the prior. MM/MM diagnostic mammo BI w/CAD IMPRESSION: NO NEW MAMMOGRAPHIC EVIDENCE OF MALIGNANCY. LEFT AXILLARY LYMPH NODES, NOT SIGNIFICANTLY CHANGED IN SIZE THOUGH CORTEX ON ONE APPEARS THINNER. ROUTINE FOLLOW-UP IS RECOMMENDED IN ONE YEAR. RESULT CODE: 2 Benign Findings(s) DENSITY CODE: 1 (<25% glandular) FOLLOW UP: 1YR The false-negative rate of mammography is approximately 10-percent. Management of a palpable abnormality must be based on clinical grounds. Patient was entered into a reminder system with a target due date for the next mammogram. Impression dictated by: Roopa Skinner M.D.06/02/2022 4:24 PM Dictation Location: [facility] Transcribed By: [facility] 06/02/22 162 Dictated By: Roopa Skinner MD 06/02/22 1506 Signed By: 06/02/22 1624 Normal [facility] A1C with Estimated Average G esther 04-29-2022 Glucose [Mass/Vol] 108 mg/dL Normal [facility] Comment on above: Result Comment: PERF ORMED BY: [facility] [address] [place] [id number] PATHOLOGIST ARM MAKER MADIHA HAILE M.D. Performed By: #### T 4F, TSH3, A1C WTH eA, CBC, CMP, LIPID, [id number] ####[place] [id number] [place] [id number] [facility] HbA1c (Bld) [Mass fraction] 5.4 % Normal 4.3-5.6 [facility] Comment on above: Result Comment: Incr eased risk for diabetes: 5.7 - 6.4 diabetes: >6.4 glycemic control for adults with diabetes: <7.0 Performed By: #### T 4F, TSH3, A1C WTH eA, CBC, CMP, LIPID, [id number] ####[place] [address] [place] [address] [facility] Basophils Auto (Bld) [#/Vol] Ordered By: Car Dong on 04-29-2022 Basophils (Bld) [#/Vol] 0.0 10*3/uL 0.0-0.2 [facility] Basophils/100 WBC Auto (Bld) Ordered By: Car Dong on 04-29-2022 Basophils/100 WBC (Bld) 0.9 % . [facility] Blood hemoglobin measurement (mass/volume)Ordered By: Car Dong on 04-29-2022 Hemoglobin (Bld) [Mass/Vol] 12.9 g/dL 11.8-15.4 [facility] Blood leukocytes automated c ount (number/volume)Ordered By: Car Dong on 04-29-2022 WBC (Bld) [#/Vol] 5.4 10*3/uL 4.5-11.0 [facility] Body fluid albumin measureme nt (mass/volume)Ordered By: Car Dong on 04-29-2022 Albumin (Body fld) [Mass/Vol] 3.5 g/dL 3.2-5.5 [facility] Cholesterol [Mass/volume] in Serum or PlasmaOrdered By: Car Dong on 04-29-2022 Cholesterol [Mass/Vol] 206 mg/dL 140-200 [facility] Comment on above: Chol less than 200 m g/dl low riskChol 201-239 mg/dl borderline riskChol 240 mg/dl and greater high risk Cholesterol in LDL Calc [Mas s/Vol]Ordered By: Car Dong on 04-29-2022 Cholesterol in LDL [Mass/Vol] 113 mg/dL 0-100 [facility] Comment on above: LDL ATP III CLASSIFI CATIONLDL less than 100 mg/dL OptimalLDL 100-129 mg/dL Near or above optimalLDL 130-159 mg/dL Borderline highLDL 160-189 mg/dL HighLDL greater than 189 mg/dL Very high Cholesterol in VLDL Calc [Ma ss/Vol]Ordered By: Car Dong on 04-29-2022 Cholesterol in VLDL [Mass/Vol] 29 mg/dL [facility] Complete Blood Count Auto Di ffon 04-29-2022 Basophils (Bld) [#/Vol] 0.0 10*3/uL Normal 0.0-0.2 [facility] Comment on above: Result Comment: PERF ORMED BY: [facility] [address] [place] [address] PATHOLOGIST ARM MAKER MADIHA HAILE M.D. Performed By: #### T 4F, TSH3, A1C WTH eA, CBC, CMP, LIPID, [id number] #### [facility] [address] [place] [address] [place] Basophils/100 WBC (Bld) 0.9 % Normal . [facility] Comment on above: Performed By: #### T 4F, TSH3, A1C WTH eA, CBC, CMP, LIPID, [id number] #### [address] Eosinophils (Bld) [#/Vol] 0.1 10*3/uL Normal 0.0-0.45 [facility] Comment on above: Performed By: #### T 4F, TSH3, A1C WTH eA, CBC, CMP, LIPID, [id number] #### [place] [address] [place] Eosinophils/100 WBC (Bld) 2.7 % Normal . [facility] Comment on above: Performed By: #### T 4F, TSH3, A1C WTH eA, CBC, CMP, LIPID, [id number] #### [address] Erythrocyte distribution width (RBC) [Ratio] 14.2 % Normal 11.9-15.3 [facility] Comment on above: Performed By: #### T 4F, TSH3, A1C WTH eA, CBC, CMP, LIPID, [id number] #### [address] Hematocrit (Bld) [Volume fraction] 37.2 % Normal 34.0-46.4 [facility] Comment on above: Performed By: #### T 4F, TSH3, A1C WTH eA, CBC, CMP, LIPID, [id number] #### [place] [address] [place] Hemoglobin (Bld) [Mass/Vol] 12.9 g/dL Normal 11.8-15.4 [facility] Comment on above: Performed By: #### T 4F, TSH3, A1C WTH eA, CBC, CMP, LIPID, [id number] #### [place] [address] [place] Lymphocytes (Bld) [#/Vol] 2.3 10*3/uL Normal 1.00-4.8 [facility] Comment on above: Performed By: #### T 4F, TSH3, A1C WTH eA, CBC, CMP, LIPID, [id number] #### [facility] [address] Lymphocytes/100 WBC (Bld) 42.7 % Normal . [facility] Comment on above: Performed By: #### T 4F, TSH3, A1C WTH eA, CBC, CMP, LIPID, [id number] #### [address] MCH (RBC) [Entitic mass] 34.0 pg Normal 24.7-34.3 [facility] Comment on above: Performed By: #### T 4F, TSH3, A1C WTH eA, CBC, CMP, LIPID, [id number] #### [address] MCV (RBC) [Entitic vol] 98.3 fL Normal 80-100 [facility] Comment on above: Performed By: #### T 4F, TSH3, A1C WTH eA, CBC, CMP, LIPID, [id number] #### [address] Mean Corpuscular HGB Conc 34.6 g/dL Normal 32.0-35.0 [facility] Comment on above: Performed By: #### T 4F, TSH3, A1C WTH eA, CBC, CMP, LIPID, [id number] #### [address] Monocytes (Bld) [#/Vol] 0.6 10*3/uL Normal 0.0-0.8 [facility] Comment on above: Performed By: #### T 4F, TSH3, A1C WTH eA, CBC, CMP, LIPID, [id number] #### [address] Monocytes/100 WBC (Bld) 11.4 % Normal . [facility] Comment on above: Performed By: #### T 4F, TSH3, A1C WTH eA, CBC, CMP, LIPID, [id number] #### [facility] [address] [place] [address] [place] Neutrophils (Bld) [#/Vol] 2.3 10*3/uL Normal 1.8-7.7 [facility] Comment on above: Performed By: #### T 4F, TSH3, A1C WTH eA, CBC, CMP, LIPID, [id number] #### [facility] [address] Neutrophils/100 WBC (Bld) 42.3 % Normal . [facility] Comment on above: Performed By: #### T 4F, TSH3, A1C WTH eA, CBC, CMP, LIPID, [id number] #### [facility] [address] [place] [address] Nucleated RBC/100 WBC (Bld) [Ratio] 0.1 % Normal 0-0.5 [facility] Comment on above: Performed By: #### T 4F, TSH3, A1C WTH eA, CBC, CMP, LIPID, [id number] #### [facility] [address] [place] [address] Platelet mean volume (Bld) [Entitic vol] 9.0 fL Normal 6.3-10.7 [facility] Comment on above: Performed By: #### T 4F, TSH3, A1C WTH eA, CBC, CMP, LIPID, [id number] #### [facility] [address] [place] [address] [place] Platelets (Bld) [#/Vol] 234 10*3/uL Normal 150-450 [facility] Comment on above: Performed By: #### T 4F, TSH3, A1C WTH eA, CBC, CMP, LIPID, [id number] #### [facility] [address] [place] [address] [place] RBC (Bld) [#/Vol] 3.79 10*6/uL Normal 3.60-5.00 [facility] Comment on above: Performed By: #### T 4F, TSH3, A1C WTH eA, CBC, CMP, LIPID, [id number] #### [facility] [address] WBC (Bld) [#/Vol] 5.4 10*3/uL Normal 4.5-11.0 [facility] Comment on above: Performed By: #### T 4F, TSH3, A1C WTH eA, CBC, CMP, LIPID, [id number] #### [facility] [address] Comprehensive Metabolic Pane grant 04-29-2022 Albumin [Mass/Vol] 3.5 g/dL Normal 3.2-5.5 [facility] Comment on above: Performed By: #### T 4F, TSH3, A1C WTH eA, CBC, CMP, LIPID, [id number] #### [facility] [address] Albumin/Globulin [Mass ratio] 1.5 {ratio} Normal [facility] Comment on above: Performed By: #### T 4F, TSH3, A1C WTH eA, CBC, CMP, LIPID, [id number] #### [facility] [address] ALP [Catalytic activity/Vol] 62 U/L Normal 32-92 [facility] Comment on above: Performed By: #### T 4F, TSH3, A1C WTH eA, CBC, CMP, LIPID, [id number] #### [address] ALT [Catalytic activity/Vol] 17 U/L Normal 10-60 [facility] Comment on above: Performed By: #### T 4F, TSH3, A1C WTH eA, CBC, CMP, LIPID, [id number] #### [address] Anion gap [Moles/Vol] 16.5 mmol/L High 6.0-15.0 [facility] Comment on above: Performed By: #### T 4F, TSH3, A1C WTH eA, CBC, CMP, LIPID, [id number] #### [address] AST [Catalytic activity/Vol] 21 U/L Normal 10-42 [facility] Comment on above: Performed By: #### T 4F, TSH3, A1C WTH eA, CBC, CMP, LIPID, [id number] #### [facility] [address] Bilirubin [Mass/Vol] 0.7 mg/dL Normal 0.3-1.2 [facility] Comment on above: Performed By: #### T 4F, TSH3, A1C WTH eA, CBC, CMP, LIPID, [id number] #### [facility] [address] Calcium [Mass/Vol] 9.8 mg/dL Normal 8.2-10.2 [facility] Comment on above: Performed By: #### T 4F, TSH3, A1C WTH eA, CBC, CMP, LIPID, [id number] #### [facility] [address] Chloride [Moles/Vol] 104 mmol/L Normal 95-114 [facility] Comment on above: Performed By: #### T 4F, TSH3, A1C WTH eA, CBC, CMP, LIPID, [id number] #### [facility] [address] CO2 [Moles/Vol] 24.5 mmol/L Normal 22.0-30.0 [facility] Comment on above: Performed By: #### T 4F, TSH3, A1C WTH eA, CBC, CMP, LIPID, [id number] #### [facility] [address] [place] [address] [place] Creatinine [Mass/Vol] 0.90 mg/dL Normal 0.44-1.03 [facility] Comment on above: Performed By: #### T 4F, TSH3, A1C WTH eA, CBC, CMP, LIPID, [id number] #### [facility] [address] [place] [address] [place] Estimated GFR ( Faith > 60 Normal [facility] Comment on above: Result Comment: GFR estimated reference range: According to KDOQI guidelines, <60 ml/min/1.73m2 is sufficient to diagnose a patient with chronic kidney disease. Performed By: #### T 4F, TSH3, A1C WTH eA, CBC, CMP, LIPID, [id number] #### [facility] [address] Estimated GFR (Non- Am > 60 Normal [facility] Comment on above: Performed By: #### T 4F, TSH3, A1C WTH eA, CBC, CMP, LIPID, [id number] #### [facility] [address] Globulin (S) [Mass/Vol] 2.3 g/dL Normal [facility] Comment on above: Performed By: #### T 4F, TSH3, A1C WTH eA, CBC, CMP, LIPID, [id number] #### [address] Glucose [Mass/Vol] 80 mg/dL Normal 70-100 [facility] Comment on above: Result Comment: [facility] Glucose Reference Range is dependent on time and content of last meal. Glucose of more than 200 mg/dL in a nonstressed, ambulatory subject supports the diagnosis of Diabetes Mellitus. ADA recommended reference range Performed By: #### T 4F, TSH3, A1C WTH eA, CBC, CMP, LIPID, [id number] #### [address] Potassium [Moles/Vol] 4.0 mmol/L Normal 3.5-5.1 [facility] Comment on above: Performed By: #### T 4F, TSH3, A1C WTH eA, CBC, CMP, LIPID, [id number] #### [address] Protein [Mass/Vol] 5.8 g/dL Low 6.1-7.9 [facility] Comment on above: Performed By: #### T 4F, TSH3, A1C WTH eA, CBC, CMP, LIPID, [id number] #### [address] Sodium [Moles/Vol] 141 mmol/L Normal 136-146 [facility] Comment on above: Performed By: #### T 4F, TSH3, A1C WTH eA, CBC, CMP, LIPID, [id number] #### [facility] [address] Urea nitrogen [Mass/Vol] 5 mg/dL Low 9- [facility] Comment on above: Performed By: #### T 4F, TSH3, A1C WTH eA, CBC, CMP, LIPID, [id number] #### [facility] [address] Creatinine and Glomerular fi ltration rate.predicted panel (S/P/Bld)Ordered By: Car Bunting on 04-29-2022 Creatinine [Mass/Vol] 0.90 mg/dL 0.44-1.03 [facility] Eosinophils Auto (Bld) [#/Vo l]Ordered By: Car Bunting on 04-29-2022 Eosinophils (Bld) [#/Vol] 0.1 10*3/uL 0.0-0.45 [facility] Eosinophils/100 WBC Auto (Bl d)Ordered By: Car Bunting on 04-29-2022 Eosinophils/100 WBC (Bld) 2.7 % . [facility] Erythrocyte distribution wid th Auto (RBC) [Ratio]Ordered By: Car Bunting on 04-29-2022 Erythrocyte distribution width (RBC) [Ratio] 14.2 % 11.9-15.3 [facility] Estimated glomerular filtrat ion rate (GFR) non- AmericanOrdered By: Car Bunting on 04-29-2022 GFR/1.73 sq M.predicted among non-blacks MDRD (S/P/Bld) [Vol rate/Area] > 60 mL/Min [facility] Free T4 (Free Thyroxine)on 0 04-29-2022 Free T4 [Mass/Vol] 0.72 ng/dL Normal 0.61-1.12 [facility] Comment on above: Performed By: #### T 4F, TSH3, A1C WTH eA, CBC, CMP, LIPID, [id number] ####[facility] [id number] Globulin Calc (S) [Mass/Vol] Ordered By: Car Dong on 04-29-2022 Globulin (S) [Mass/Vol] 2.3 g/dL [facility] Glucose mean value [Mass/vol ume] in Blood Estimated from glycated hemoglobinOrdered By: Car Dong on 04-29-2022 Average glucose Estimated from glycated hemoglobin (Bld) [Mass/Vol] 108 mg/dL [facility] Hematocrit Auto (Bld) [Volum e fraction]Ordered By: Car Dong on 04-29-2022 Hematocrit (Bld) [Volume fraction] 37.2 % 34.0-46.4 [facility] Hemoglobin A1c percentageOrd ered By: Car Dong on 04-29-2022 HbA1c (Bld) [Mass fraction] 5.4 % 4.3-5.6 [facility] Comment on above: Increased risk for d iabetes: 5.7 - 6.4diabetes: >6.4glycemic control for adults with diabetes: <7.0 Laboratory - Hematology and Cell countsOrdered By: Car Dong on 04-29-2022 Nucleated RBC/100 WBC (Bld) [Ratio] 0.1 % 0-0.5 [facility] Lipid Panelon 04-29-2022 Cholesterol [Mass/Vol] 206 mg/dL High 140-200 [facility] Comment on above: Result Comment: Chol less than 200 mg/dl low risk Chol 201-239 mg/dl borderline risk Chol 240 mg/dl and greater high risk Performed By: #### T 4F, TSH3, A1C WTH eA, CBC, CMP, LIPID, [id number] #### [facility] [address] Cholesterol in HDL [Mass/Vol] 64 mg/dL Normal 35-85 [facility] Comment on above: Result Comment: HDL CHOL ATP-III CLASSIFICATION Cardiovascular Risk HDL > or equal to 60 mg/dL LOW HDL < 40 mg/dL HIGH Performed By: #### T 4F, TSH3, A1C WTH eA, CBC, CMP, LIPID, [id number] #### [facility] [address] Cholesterol.total/Gia sterol in HDL [Mass ratio] 3.2 {ratio} Normal <5.0 [facility] Comment on above: Performed By: #### T 4F, TSH3, A1C WTH eA, CBC, CMP, LIPID, [id number] #### [facility] [address] LDL Cholesterol,Calculated 113 mg/dL High 0-100 [facility] Comment on above: Result Comment: LDL ATP III CLASSIFICATION LDL less than 100 mg/dL Optimal LDL 100-129 mg/dL Near or above optimal LDL 130-159 mg/dL Borderline high LDL 160-189 mg/dL High LDL greater than 189 mg/dL Very high Performed By: #### T 4F, TSH3, A1C WTH eA, CBC, CMP, LIPID, [id number] #### [facility] [address] Triglyceride w/Reflex 145 mg/dL Normal 35-149 [facility] Comment on above: Result Comment: TRIG ATP III CLASSIFICATION TRIG less than 150 mg/dL Normal TRIG 150-199 mg/dL Borderline high TRIG 200-500 mg/dL High TRIG greater than 500 mg/dL Very high Standard traceable to the Center for Disease Conrtrol and Prevention (CDC) test method. Performed By: #### T 4F, TSH3, A1C WTH eA, CBC, CMP, LIPID, [id number] #### [facility] [address] VLDL CHOLESTEROL 29 mg/dL Normal [facility] Comment on above: Performed By: #### T 4F, TSH3, A1C WTH eA, CBC, CMP, LIPID, [id number] #### [facility] [address] Lymphocytes Auto (Bld) [#/Vo l]Ordered By: Car Dong on 04-29-2022 Lymphocytes (Bld) [#/Vol] 2.3 10*3/uL 1.00-4.8 [facility] Lymphocytes/100 WBC Auto (Bl d)Ordered By: Car Dong on 04-29-2022 Lymphocytes/100 WBC (Bld) 42.7 % . [facility] MCH Auto (RBC) [Entitic mass ]Ordered By: Car Bunting on 04-29-2022 MCH (RBC) [Entitic mass] 34.0 pg 24.7-34.3 [facility] MCHC Auto (RBC) [Mass/Vol]Or dered By: Car Bunting on 04-29-2022 MCHC (RBC) [Mass/Vol] 34.6 g/dL 32.0-35.0 [facility] MCV Auto (RBC) [Entitic vol] Ordered By: Car Bunting on 04-29-2022 MCV (RBC) [Entitic vol] 98.3 fL 80-100 [facility] Monocytes Auto (Bld) [#/Vol] Ordered By: Car Bunting on 04-29-2022 Monocytes (Bld) [#/Vol] 0.6 10*3/uL 0.0-0.8 [facility] Monocytes/100 WBC Auto (Bld) Ordered By: Car Bunting on 04-29-2022 Monocytes/100 WBC (Bld) 11.4 % . [facility] Neutrophils Auto (Bld) [#/Vo l]Ordered By: Car Bunting on 04-29-2022 Neutrophils (Bld) [#/Vol] 2.3 10*3/uL 1.8-7.7 [facility] Neutrophils/100 WBC Auto (Bl d)Ordered By: Car Bunting on 04-29-2022 Neutrophils/100 WBC (Bld) 42.3 % . [facility] No Panel InformationOrdered By: Car Bunting on 04-29-2022 25-Hydroxy Vitamin D Total 34.9 ng/mL 30-100 [facility] Comment on above: VITAMIN D STATUS 25( OH)VITAMIN D RANGE (ng/mL) Deficient <20 Insufficient 20 to <30Sufficient 30 to 100Reference: Shira MF,Meeta NGO, Nevaeh TONG, et al. Evaluation,treatment, and prevention of vitamin D deficiency; an Endocrine Society clinical practice guideline. JCEM. 2010; 96(7):1911-30. Estimated GFR () > 60 mL/Min [facility] Comment on above: GFR estimated refere nce range: According to KDOQI guidelines, <60 ml/min/1.73m2 is sufficient to diagnose a patient with chronic kidney disease. Pharmacy Creatinine Clearance (Chem N/A [facility] Platelet mean volume Auto (B ld) [Entitic vol]Ordered By: Car Bunting on 04-29-2022 Platelet mean volume (Bld) [Entitic vol] 9.0 fL 6.3-10.7 [facility] Platelets Auto (Bld) [#/Vol] Ordered By: Car Bunting on 04-29-2022 Platelets (Bld) [#/Vol] 234 10*3/uL 150-450 [facility] Protein [Mass/volume] in Ser um or PlasmaOrdered By: Car Bunting on 04-29-2022 Protein [Mass/Vol] 5.8 g/dL 6.1-7.9 [facility] RBC Auto (Bld) [#/Vol]Ordere d By: Car Bunting on 04-29-2022 RBC (Bld) [#/Vol] 3.79 10*6/uL 3.60-5.00 [facility] Serum or plasma alanine ortiz otransferase measurement without P-5'-P (enzymatic activiOrdered By: Car Bunting on 04-29-2022 ALT No additional P-5'-P [Catalytic activity/Vol] 17 U/L 10-60 [facility] Serum or plasma albumin/glob ulin mass ratioOrdered By: Car Bunting on 04-29-2022 Albumin/Globulin [Mass ratio] 1.5 {ratio} [facility] Serum or plasma alkaline pina sphatase measurement (enzymatic activity/volume)Ordered By: Car Bunting on 04-29-2022 ALP [Catalytic activity/Vol] 62 U/L 32-92 [facility] Serum or plasma anion gap de terminationOrdered By: Car Bunting on 04-29-2022 Anion gap [Moles/Vol] 16.5 mmol/L 6.0-15.0 [facility] Serum or plasma aspartate am inotransferase measurement (enzymatic activity/volume)Ordered By: Car Bunting on 04-29-2022 AST [Catalytic activity/Vol] 21 U/L 10-42 [facility] Serum or plasma calcium sudha urement (mass/volume)Ordered By: Car Dong on 04-29-2022 Calcium [Mass/Vol] 9.8 mg/dL 8.2-10.2 [facility] Serum or plasma chloride roberto surement (moles/volume)Ordered By: Car Dong on 04-29-2022 Chloride [Moles/Vol] 104 mmol/L 95-114 [facility] Serum or plasma glucose sudha urement (mass/volume)Ordered By: Car Dong on 04-29-2022 Glucose [Mass/Vol] 80 mg/dL 70-100 [facility] Comment on above: ADA recommended refe rence rangeRandom Glucose Reference Range is dependent on time and content of last meal. Glucose of more than 200 mg/dL in a nonstressed, ambulatory subject supports the diagnosis of Diabetes Mellitus. Serum or plasma high density lipoprotein (HDL) cholesterol measurementOrdered By: Car Dong on 04-29-2022 Cholesterol in HDL [Mass/Vol] 64 mg/dL 35-85 [facility] Comment on above: HDL CHOL ATP-III CLA SSIFICATION Cardiovascular RiskHDL > or equal to 60 mg/dL LOWHDL < 40 mg/dL HIGH Serum or plasma potassium me asurement (moles/volume)Ordered By: Car Dong on 04-29-2022 Potassium [Moles/Vol] 4.0 mmol/L 3.5-5.1 [facility] Serum or plasma sodium measu rement (moles/volume)Ordered By: Car Dong on 04-29-2022 Sodium [Moles/Vol] 141 mmol/L 136-146 [facility] Serum or plasma total biliru bin measurement (mass/volume)Ordered By: Car Dong on 04-29-2022 Bilirubin [Mass/Vol] 0.7 mg/dL 0.3-1.2 [facility] Serum or plasma total carbon dioxide measurement (moles/volume)Ordered By: Car Dong on 04-29-2022 CO2 [Moles/Vol] 24.5 mmol/L 22.0-30.0 [facility] Serum or plasma total choles terol/high density lipoprotein (HDL) cholesterol mass ratOrdered By: Car Dong on 04-29-2022 Cholesterol.total/Gia sterol in HDL [Mass ratio] 3.2 {ratio} <5.0 [facility] Serum or plasma urea nitroge n measurement (mass/volume)Ordered By: Car Dong on 04-29-2022 Urea nitrogen [Mass/Vol] 5 mg/dL 9- [facility] TSH DL <= 0.005 mIU/L QnOrde red By: Car Dong on 04-29-2022 TSH Qn 6.83 m[IU]/L 0.45-5.33 [facility] Thyroid Stimulating Hormoneo n 04-29-2022 TSH Qn 6.83 m[IU]/L High 0.45-5.33 [facility] Comment on above: Performed By: #### T 4F, TSH3, A1C WTH eA, CBC, CMP, LIPID, [id number] ####[facility] [id number] Thyroxine (T4) free [Mass/vo lume] in Serum or PlasmaOrdered By: Car Dong on 04-29-2022 Free T4 [Mass/Vol] 0.72 ng/dL 0.61-1.12 [facility] Triglyceride [Mass/volume] i n Serum or PlasmaOrdered By: Car Dong on 04-29-2022 Triglyceride [Mass/Vol] 145 mg/dL 35-149 [facility] Comment on above: TRIG ATP III CLASSIF ICATIONTRIG less than 150 mg/dL NormalTRIG 150-199 mg/dL Borderline highTRIG 200-500 mg/dL High TRIG greater than 500 mg/dL Very highStandard traceable to the Center for Disease Conrtrol and Prevention (CDC) test method. Vitamin D 25 Hydroxy Totalon 04-29-2022 Vitamin D 25 Hydroxy Total 34.9 ng/mL Normal 30-100 [facility] Comment on above: Result Comment: DERICK MIN D STATUS 25(OH)VITAMIN D RANGE (ng/mL) Deficient <20 Insufficient 20 to <30 Sufficient 30 to 100 Reference: Shira MF,Meeta NC, Nevaeh TONG, et al. Evaluation,treatment, and prevention of vitamin D deficiency; an Endocrine Society clinical practice guideline. JCEM. 2010; 96(7):1911-30. PERFORMED BY: [facility] [address] [place] [address] PATHOLOGIST ARM MAKER MADIHA HAILE M.D. Performed By: #### T 4F, TSH3, A1C WTH eA, CBC, CMP, LIPID, [id number] ####[facility] [id number] [place] [address] [facility] 03-27-2022 L Specimen: [id number] Received: 03/27/22 Status: APRIL Lugo Num: [id number] Spec Type: Surgical Subm Dr: Segun Funk DO Tissues: A Colon - Polyp (ASCENDING POLYP) Procedures: HE Stain/2, Gross/Micro L4 Age/ Patient Sex Location Account Attending Physician Chiquis Walker 72/F NGOC [id number] Segun Funk DO SPEC NUM: [id number] RECD: 03/27/22 STATUS: APRIL LUGO NUM: [id number] STEVEN: 03/27/22 DR: Segun Funk DO ENTERED: 03/27/22 [facility] DR: [facility] SPEC TYPE: Surgical DEPT: S ORDERED: HE Stain/2, Gross/Micro L4 ORDERED: HE Stain/2, Gross/Micro L4 Pathological Diagnosis Ascending colon polyp, polypectomy: - Tubular adenoma. Clinical Information Personal history colon polyps Gross Description Received in formalin labeled with the patient's name, number and ascending colon polyp is one fragment of soft tissue measuring 0.6 cm. Entirely submitted in one cassette labeled A1. (LG/LG/) Microscopic Description Two glass slides with H E stained material have been examined. The microscopic findings support the above pathologic diagnosis. CPT Codes 70677 Specimen: [id number] Received: 03/27/22 Status: APRIL Lugo Num: [id number] Spec Type: Surgical Subm Dr: Segun Funk DO Tissues: A Colon - Polyp (ASCENDING POLYP) Procedures: HE Stain/2, Gross/Micro L4 Patient: Chiquis Walker [id number] (Continued) Signed (signature on file) Jerad Love MD 03/28/22 1427 [facility] XR hips BI 4V adulton 2021 XR hips BI 4V adult [place] [address] XRay Report Signed Patient: Chiquis Walker MR#: [id number] : 1950 Acct:[id number] Age/Sex: 72 / F ADM Date: 02/11/22 Loc: [facility] Room: Type: [facility] Attending Dr: Roger Khalil MD Copies to: Roger Khalil MD Ordering Provider: Roger Khalil MD Date of Service: 02/11/22 XR/XR hips BI 4V adult: Hip pain ADULT PELVIS WITH BILATERAL HIPS - one view each CLINICAL HISTORY: Bilateral hip pain for 3 months. COMPARISON: None FINDINGS: No acute bony process. Mild degenerative changes of the hips. Degenerative changes are also noted involving the visualized lower lumbar spine and SI joints. Staple line is seen involving the rectum region. XR/XR hips BI 4V adult IMPRESSION: MILD DEGENERATIVE CHANGES OF THE HIPS WITHOUT ACUTE BONY PROCESS. Impression dictated by: Rickey Rodriguez Jr., DColby02/11/2022 2:48 PM Dictation Location: RADIO-PC-13 Transcribed By: BIBI 02/11/22 1448 Dictated By: Rickey Rodriguez Jr, DO 02/11/22 1446 Signed By: 02/11/22 1448 Normal [facility] US extremity nonvascularon 0 02-10-2022 US extremity nonvascular [place] [address] Ultrasound Report Signed Patient: Chiquis Walker MR#: [id number] : 1950 Acct:[id number] Age/Sex: 72 / F ADM Date: 02/10/22 Loc: Room: Type: [facility] Attending Dr: Arnold Hernandez DO Ordering Provider: Arnold Hernandez DO Date of Service: 02/10/22 US/US extremity nonvascular: 6mos. f/u;Enlarged lymph nodes in armpit Copies to: Arnold Hernandez DO LIMITED ULTRASOUND - left axilla CLINICAL DATA: Follow-up left axillary adenopathy COMPARISON: 08/07/2021 Real-time ultrasound evaluation of the left axilla was performed. There is a lymph node measuring 12 x 6 x 11 mm. This is believed to correlate with the node previously measured at 12 x 6 x 18 mm. There is an additional lymph node identified today measuring 13 x 5 x 10 mm. Both nodes have slightly thickened cortex. Cursory evaluation was also performed of an area of pain at the lateral left breast were no cystic or solid ultrasound abnormalities were detected. US/US extremity nonvascular IMPRESSION: LEFT AXILLARY LYMPH NODES, DESCRIBED. THAT WHICH WAS IMAGED AT TIME THE PRIOR IS SLIGHTLY SMALLER. Impression dictated by: Roopa Skinner M.D.02/10/2022 3:10 PM Dictation Location: RADIO-PC-13 Tech: Dona Hopper Transcribed By: BIBI 02/10/22 1510 Dictated By: Roopa Skinner MD 02/10/22 1458 Signed By: 02/10/22 1510 [facility] Rebeca 01-05-2020 CNPN Telephone (OBGYLN) CHIQUIS WALKER ([id number]) 1950 F Date Time Provider Department 01/05/20 TAN MCGILL (DIRECTOR [place]) OBGYLN During your visit today, we recorded the following information about you: Kelsey Krishna Pss 01/05/2020 11:04 AM Signed micki Coon from [facility] in regards to prescription for GABAPENTIN 4% IN VERSABASE VAGINAL CREAM. Requesting call for clarification on directions, inquiring if it is to be topical or used internally? Pharmacy can be reached at [phone], press Option 4. Please advise. Bruce Almaguer RN 01/05/2020 2:46 PM Signed pharmacist advised topical. Allergies As of Date: 01/05/2020 (No Known Allergies) Date Reviewed: 01/02/2020 Reviewed by: Stacey Rosado Ma - Fully Assessed Reason for Visit: Prescription Clarification [Other] Prescriptions as of 01/05/2020 Sig: GABAPENTIN 4% IN VERSABASE VA* Gabapentin pwdr in ethoxydigl* LEVOTHYROXINE 125 MCG CAPSULE Take 125 mcg by mouth once da* ESZOPICLONE 3 MG TABLET Take 3 mg by mouth daily at b* METOPROLOL SUCC 25 MG-HYDROCH* Take 25 mg by mouth once shama* ROSUVASTATIN 20 MG TABLET Take 20 mg by mouth once shama* RIZATRIPTAN 10 MG TABLET Take 10 mg by mouth as needed* SERTRALINE 50 MG TABLET Take 50 mg by mouth once shama* ESTRADIOL 0.01% (0.1 MG/GRAM)* Throw out applicator. Use pea* Problem List As Of Date: 01/05/2020 (None) Encounter Status:Closed by BRUCE ALMAGUER RN on 01/05/20 [facility] Ozzy 01-02-2020 CNOV Office Visit (OBGYCC) CHIQUIS WALKER ([id number]) 1950 F Date Time Provider Department 01/02/20 11:00 AM TAN MCGILL (MICHAEL) OBGYCC During your visit today, we recorded the following information about you: Pulse Blood pressure Weight Height 88/minute 136/66 75.3 kg 1.676 m Tan Mcgill APRN.CNP 01/02/2020 12:18 PM Signed Chiquis Bang Walker is a 69 year old female who presents for vaginal problem. HPI: PCP sent pt to [facility] 10/[facility]/19 for frequent UTIs, and vaginal and vulvar burning/pressure. UA was negative. Was given rx for Estrogen, using once every couple days. Has had no improvement in symptoms. Vulvar pain, worse with clothing rubbing and sitting. Constant feeling of irritation/pressure/ burning. Had hysterectomy A/P repair [facility] age 1997. Right ovary still intact. Vaginal discharge: none. Itching: No Dyspareunia: No Fever/chills: No Abdominal pain: No Bladder: has burning with urinating all the time. Bowel: No blood in stool, pain with BM, tarry stool, persistent diarrhea or constipation Any new sexual partners or concern for STD exposure: No Any history of STDs: None Does your partner have any new complaints: No Are you currently taking any medications to treat vaginitis: No Do you use feminine sprays, douches or deodorants: No Menstrual cycle: postmenopausal, hysterectomy at 47 Hot flashes: daily. Night flashes: almost every night Mood swings: yes Insomnia: no Past medical, surgical, social history, medications and allergies reviewed and updated. OBJECTIVE: BP 136/66 Pulse 88 Ht 5' 6 (1.68m) Wt 166 lb (75.3kg) BMI 26.81 kg/(m2). GENERAL: Well developed, well nourished in no apparent distress ABDOMEN: soft, non-tender and no masses PELVIC: external genitalia normal, normal Bartholin's glands, urethra, Spray's glands, no vulvar lesions, good vaginal support, normal appearing perineal body and perianal region, cervix surgically absent BIMANUAL: no adnexal masses, non-tender and uterus surgically absent. RECTOVAGINAL: deferred. ASSESSMENT/PLAN: 1) Vulvar pain - possible Vulvodynia. Dx in the absence of relevant visible infectious, inflammatory, or neoplastic findings and in the absence of a specific clinically identifiable disorder of any kind (ie, idiopathic). Diagnosis/treatment remain controversial, neither clinicians nor researchers have a consistent approach to either. Pathogenesis unknown. Likely neuropathic , both genetic and environmental factors contribute to susceptibility Diagnosis of vulvodynia is clinical, based on characteristic findings on history and physical examination. It is largely one of exclusion - swab obtained to r/o infection. Discussed vulvar hygiene ? AVOID: scented products, dyes, chemicals, or contactants, tight, synthetic, or uncomfortable clothing, abrasive activities (biking or horseback riding), daily use of mini-pads, prolonged, hot soaks. DO: Hydrate through 5- to 10-minute sitz baths in comfortable warm water two to three times daily, use crushed ice or small frozen foods (eg, peas, corn) to provide relief from burning in the vestibule or from post-coital soreness. Prolonged application, however, can cause frostbite. A gel pack cooled in the refrigerator, wrapped in a soft cloth, and changed frequently is a safer alternative. Rx sent for Gababpentin cream. 2) Urinary symptom - UA negative. 3) RTO in 6-8 weeks for recheck. Tan Mcgill APRN.MICHAEL Mcgill APRN.MICHAEL 01/02/2020 12:18 PM Addendum Vulvodynia Diagnosis/treatment remain controversial, neither clinicians nor researchers have a consistent approach to either. Pathogenesis unknown. Likely neuropathic , both genetic and environmental factors contribute to susceptibility Diagnosis of vulvodynia is clinical, based on characteristic findings on history and physical examination. It is largely one of exclusion. Discussed vulvar hygiene ? AVOID: scented products, dyes, chemicals, or contactants, tight, synthetic, or uncomfortable clothing, abrasive activities (biking or horseback riding), daily use of mini-pads, prolonged, hot soaks. DO: Hydrate through 5- to 10-minute sitz baths in comfortable warm water two to three times daily, use crushed ice or small frozen foods (eg, peas, corn) to provide relief from burning in the vestibule or from post-coital soreness. Prolonged application, however, can cause frostbite. A gel pack cooled in the refrigerator, wrapped in a soft cloth, and changed frequently is a safer alternative. Rx sent for Gababpentin cream. Referring Provider: SELF [200] Allergies As of Date: 01/02/2020 (No Known Allergies) Date Reviewed: 01/02/2020 Reviewed by: Stacey Rosado Ma - Fully Assessed Reason for Visit: Vaginal Problem [117] Cmt: since September - pain and fullness feeling Primary Visit Diagnosis:Vulvodynia [N94.819] Other Visit Diagnoses:Vulvar pain [R10.2] Dysuria [R30.0] Vaginal burning [N94.9] Order(s):UA DIP, URINE (POC) [6710924] Order #: [id number] GABAPENTIN 4% IN VERSABASE VAGINAL CREAMGabapentin pwdr in ethoxydiglycol, mix in Versabase. 0.5mL TIDDisp: 45 gRfl: 1 UA DIP, URINE (POC) [[id number]] Order #: [id number]. #:[id number] VAGINAL PATHOGENS DNA PROBES [SQVAGDNA] Order #: [id number] FUTURE Prescriptions as of 01/02/2020 Sig: LEVOTHYROXINE 125 MCG CAPSULE Take 125 mcg by mouth once da* ESZOPICLONE 3 MG TABLET Take 3 mg by mouth daily at b* METOPROLOL SUCC 25 MG-HYDROCH* Take 25 mg by mouth once shama* ROSUVASTATIN 20 MG TABLET Take 20 mg by mouth once shama* RIZATRIPTAN 10 MG TABLET Take 10 mg by mouth as needed* SERTRALINE 50 MG TABLET Take 50 mg by mouth once shama* ESTRADIOL 0.01% (0.1 MG/GRAM)* Throw out applicator. Use pea* GABAPENTIN 4% IN VERSABASE VA* Gabapentin pwdr in ethoxydigl* Problem List As Of Date: 01/02/2020 (None) Other instructions from your clinician: Vulvodynia Diagnosis/treatment remain controversial, neither clinicians nor researchers have a consistent approach to either. Pathogenesis unknown. Likely neuropathic , both genetic and environmental factors contribute to susceptibility Diagnosis of vulvodynia is clinical, based on characteristic findings on history and physical examination. It is largely one of exclusion. Discussed vulvar hygiene ? AVOID: scented products, dyes, chemicals, or contactants, tight, synthetic, or uncomfortable clothing, abrasive activities (biking or horseback riding), daily use of mini-pads, prolonged, hot soaks. DO: Hydrate through 5- to 10-minute sitz baths in comfortable warm water two to three times daily, use crushed ice or small frozen foods (eg, peas, corn) to provide relief from burning in the vestibule or from post-coital soreness. Prolonged application, however, can cause frostbite. A gel pack cooled in the refrigerator, wrapped in a soft cloth, and changed frequently is a safer alternative. Rx sent for Gababpentin cream. Prescriptions ordered this encounter Disp Refills Start End GABAPENTIN 4% IN VERSABASE VAGINAL C* 45 g 1 01/02/2020 07/04/2020 Cmt: 45mL dispense Sig: Gabapentin pwdr in ethoxydiglycol, mix in Versabase. 0.5mL TID Disposition: Return in about 8 weeks (around 02/27/2020) for f/u. Follow-up and Disposition History Recorded Encounter Status:Closed by TAN MCGILL CNP on 01/02/20 [facility] PROGRESSon 01-02-2020 PROGRESS HNO ID: [id number] Author: Tan Larson) Roseann Service: ? Author Type: Nurse Practitioner Type: Progress Notes Filed: 01/02/2020 12:18 PM Note Text: Chiquis Walker is a 69 year old female who presents for vaginal problem. HPI: PCP sent pt to [facility] 10/24/19 for frequent UTIs, and vaginal and vulvar burning/pressure. UA was negative. Was given rx for Estrogen, using once every couple days. Has had no improvement in symptoms. Vulvar pain, worse with clothing rubbing and sitting. Constant feeling of irritation/pressure/ burning. Had hysterectomy A/P repair [facility] age 1997. Right ovary still intact. Vaginal discharge: none. Itching: No Dyspareunia: No Fever/chills: No Abdominal pain: No Bladder: has burning with urinating all the time. Bowel: No blood in stool, pain with BM, tarry stool, persistent diarrhea or constipation Any new sexual partners or concern for STD exposure: No Any history of STDs: None Does your partner have any new complaints: No Are you currently taking any medications to treat vaginitis: No Do you use feminine sprays, douches or deodorants: No Menstrual cycle: postmenopausal, hysterectomy at 47 Hot flashes: daily. Night flashes: almost every night Mood swings: yes Insomnia: no Past medical, surgical, social history, medications and allergies reviewed and updated. OBJECTIVE: BP 136/66 Pulse 88 Ht 5' 6 (1.68m) Wt 166 lb (75.3kg) BMI 26.81 kg/(m2). GENERAL: Well developed, well nourished in no apparent distress ABDOMEN: soft, non-tender and no masses PELVIC: external genitalia normal, normal Bartholin's glands, urethra, Spray's glands, no vulvar lesions, good vaginal support, normal appearing perineal body and perianal region, cervix surgically absent BIMANUAL: no adnexal masses, non-tender and uterus surgically absent. RECTOVAGINAL: deferred. ASSESSMENT/PLAN: 1) Vulvar pain - possible Vulvodynia. Dx in the absence of relevant visible infectious, inflammatory, or neoplastic findings and in the absence of a specific clinically identifiable disorder of any kind (ie, idiopathic). Diagnosis/treatment remain controversial, neither clinicians nor researchers have a consistent approach to either. Pathogenesis unknown. Likely neuropathic , both genetic and environmental factors contribute to susceptibility Diagnosis of vulvodynia is clinical, based on characteristic findings on history and physical examination. It is largely one of exclusion - swab obtained to r/o infection. Discussed vulvar hygiene ? AVOID: scented products, dyes, chemicals, or contactants, tight, synthetic, or uncomfortable clothing, abrasive activities (biking or horseback riding), daily use of mini-pads, prolonged, hot soaks. DO: Hydrate through 5- to 10-minute sitz baths in comfortable warm water two to three times daily, use crushed ice or small frozen foods (eg, peas, corn) to provide relief from burning in the vestibule or from post-coital soreness. Prolonged application, however, can cause frostbite. A gel pack cooled in the refrigerator, wrapped in a soft cloth, and changed frequently is a safer alternative. Rx sent for Gababpentin cream. 2) Urinary symptom - UA negative. 3) RTO in 6-8 weeks for recheck. Tan Mcgill APRN.DIRECTOR [place] Normal [facility] Vag Pathogens DNAon 01-02-20 20 Adalgisa sp DNA Probe Negative Normal Negativ e for Adalgisa species by DNA Probe [facility] Comment on above: Performed By: #### V AGDNA #### [place] [id number] [place] [address] Mayela vag DNA Probe Negative Normal Negative for Gardnerella vaginalis by DNA Probe [facility] Comment on above: Performed By: #### V AGDNA #### [place] [id number] [place] [address] Trich vag DNA Probe Negative Normal Negative for Trichomonas vaginalis by DNA Probe [facility] Comment on above: Performed By: #### V AGDNA #### [place] [address] PROGRESSon 12-28-2019 PROGRESS HNO ID: [id number] Author: Malu Norman (Pa) Service: ? Author Type: Physician Tow Feeder Type: Progress Notes Filed: 12/28/2019 8:44 AM Note Text: Patient canceled appointment. Intake was done day prior which is why chart was opened. Normal [facility] CNOVon 10-24-2019 CNOV Office Visit (UROLAV) CHIQUIS WALKER ([id number]) 1950 F Date Time Provider Department 10/24/19 1:00 PM MALU NORMAN) UROLAV During your visit today, we recorded the following information about you: Temperature Pulse Blood pressure Weight 98.1 degrees 75/minute 97/48 78 kg Height 1.638 m Malu Norman PA-C 10/24/2019 1:51 PM Signed [facility] F[facility] PELVIC MEDICINE AND RECONSTRUCTIVE SURGERY PATIENT HISTORY AND PHYSICAL EXAM PATIENT INFO: Chiquis Walker is a 69 year old female. HISTORY CHIEF COMPLAINT: UTIs HPI : Chiquis Walker is a 69 year old female who presents today for UTIs for many years. Typical symptoms of UTI - burning with urination. Sometimes intermittent discomfort in RLQ. Most recent infection she was on macrobid 100mg BID x 10 days. She then had bactrim for 5 days - minimal improvement in symptoms. Burning is present all the time - worse with sitting/laying down, better with walking. She brought in dipstick results, but no urine cultures. She reports about 4-5 infections in the past year. She denies gross hematuria with UTIs recently. She is usually seen and treated by Dr. Car Dong, her PCP out of [place]. Repeat urine 10/03/2019: moderate leuks, trace protein, negative blood, negative nitrate. KATHE: No URGENCY: No UI: Yes PADS: No FREQUENCY:5 per day NOCTURIA: 1 per night STRAINING TO VOID: Yes - in the morning EMPTIES COMPLETELY: Yes UTI: 4-5 past 12 months FLUIDS: 32 oz total fluid Caffeine: 1 cup coffee daily SEXUALLY ACTIVE: yes, monogamous DYSPAREUNIA: YES PREGNANCIES: 4, Para 4 Post-menopause: yes Have you had a hysterectomy:YES - POP; cystocele and rectocele repair Postmenopausal bleeding:No Sense of vaginal bulge:NO HEMATURIA HX: No STONES: No GI: IBS with diarrhea; occasional FI Do you have any new weakness,balance or coordination problems:NO Do you have a history of any diagnosed back or Neurological problems:YES HISTORIES: No past medical history on file. No past surgical history on file. No family history on file. Social History Tobacco Use - Smoking status: Never Smoker - Smokeless tobacco: Never Used Substance Use Topics - Alcohol use: Not on file - Drug use: Not on file The patient's family history is not related to the condition for which the patient is being seen MEDICATIONS: Current Outpatient Medications Medication Sig - Levothyroxine 125 mcg cap Take 125 mcg by mouth once daily. - eszopiclone (LUNESTA) 3 mg tab Take 3 mg by mouth daily at bedtime. - metoprolol barlow-hydrochlorothiaz 25-12.5 mg Tb24 Take 25 mg by mouth once daily. - rosuvastatin (CRESTOR) 20 mg tablet Take 20 mg by mouth once daily. - rizatriptan (MAXALT) 10 mg tablet Take 10 mg by mouth as needed. May repeat in 2 hours if needed - sertraline (ZOLOFT) 50 mg tablet Take 50 mg by mouth once daily. No current facility-administere d medications for this visit. ALLERGIES: Patient has no allergy information on record. GENERAL REVIEW OF SYSTEMS: GENERAL: negative for malaise, significant weight loss and fever HEAD AND NECK: No blurred vision or Sjogren's syndrome SKIN: Negative for lesions, rash, and itching. RESPIRATORY: Negative for cough and shortness of breath CARDIOVASCULAR: Negative for chest pain or HI GI: SEE HPI GENITOURINARY: SEE HPI ENDOCRINE:Positive for thyroid issues NEURO: Positive for numbness and tingling in feet. MUSCULOSKELETAL: Negative for joint pain or swelling, back pain or muscle pain BLOOD/LYMPHATIC: No easy bleeding, easy bruising, transfusion Hx PSYCH: anxiety, depression PHYSICAL EXAM: VITAL SIGNS: BP (!) 97/48 Pulse 75 Temp 36.7 ?C (98.1 ?F) (Oral) Ht 163.8 cm (5' 4.5 ) Wt 78 kg (172 lb) BMI 29.07 kg/m? GENERAL: Well appearing, alert, in no acute distress, well-hydrated, well nourished. HEAD AND NECK: No masses, adenopathy. RESP: NL effort, no retractions or purse-lip breathing. CV: No extremity swelling, varices, edema, pallor, or erythema ABDOMEN: Soft, nontender, nondistended, no masses. BACK: No CVA tenderness, no tenderness to palpation of spinal muscles. SKIN/LYMPH: No rash, lesions NEURO/PSYCH: No signs of depression, anxiety, or agitation EXTREMITIES: Extremities normal. No deformities, edema, clubbing or skin discoloration. GENITOURINARY: External genitalia: nl. Hair distribution, no lesions Urethra without mass, tenderness, scarring. Bladder non-palpable without masses/tenderness. Vaginal appearance normal without discharge. Estrogen low No POP - good support. PVR: 0 mL via bladder US UA: Normal IMPRESSION AND PLAN: ASSESSMENT/PLAN: 1. Vaginal burning - ICD9: 625.8, ICD10: N94.9 (primary diagnosis) - Patient's most bothersome symptom. Thought it was related to UTI. - No improvement after 10 days macrobid, 5 days bactrim. - Present all the time, worse with sitting down, laying; better with walking. - Suspicious vaginal burning is related to vaginal atrophy. - Will have patient fill out record release form for urine cultures; she brought in dipstick test which showed moderate leuks, but negative blood/nitrates. - Discussed difference between dipstick and urine culture; explained urine cultures are absolutely essential to determining treatment. - Vaginal Atrophy-We reviewed the following education and treatment options for patients with vaginal atrophy ? Topical estrogen cream for atrophic vaginitis: fingertip application and side effect discussed. Pt to use 2-3 nights per week. every other night. Prescription and patient information provided to patient. ? Patient to notify office if too expensive. ? If symptoms worsen or return, patient to follow up with local provider but insist they send for urine culture; recommended increasing water intake and taking AZO if she can await culture results in 48 hours. ? RTC in 2 months for reassessment. 2. Vaginal atrophy - ICD9: 627.3, ICD10: N95.2 - See above. 3. Screening for genitourinary condition - ICD9: V81.6, ICD10: Z13.89 - UA DIP, URINE (POC) ISAIAS Short Ma 10/24/2019 1:08 PM Signed PVR = 00ml Via bladder scan. Referring Provider: SELF [[id number]] Allergies As of Date: 10/24/2019 (Not on File) Date Reviewed: 10/24/2019 Reviewed by: Madhuri Marmolejo Ma - Fully Assessed Reason for Visit: Initial Consult [665] Cmt: recurring UTI Primary Visit Diagnosis:Vaginal burning [N94.9] Other Visit Diagnoses:Vaginal atrophy [N95.2] Screening for genitourinary condition [Z13.89] Order(s):UA DIP, URINE (POC) [0294721] Order #: [id number] #:[id number] estradiol (ESTRACE) 0.01 % (0.1 mg/gram) vaginal creamThrow out applicator. Use pea-size amount on your fingertip intravaginally 2-3x per week at night.Disp: 42.5 gRfl: 1 Prescriptions as of 10/24/2019 Sig: LEVOTHYROXINE 125 MCG CAPSULE Take 125 mcg by mouth once da* ESZOPICLONE 3 MG TABLET Take 3 mg by mouth daily at b* METOPROLOL SUCC 25 MG-HYDROCH* Take 25 mg by mouth once shama* ROSUVASTATIN 20 MG TABLET Take 20 mg by mouth once shama* RIZATRIPTAN 10 MG TABLET Take 10 mg by mouth as needed* SERTRALINE 50 MG TABLET Take 50 mg by mouth once shama* ESTRADIOL 0.01% (0.1 MG/GRAM)* Throw out applicator. Use pea* Problem List As Of Date: 10/24/2019 (None) Prescriptions ordered this encounter Disp Refills Start End ESTRADIOL 0.01% (0.1 MG/GRAM) VAGINA* 42.5* 1 10/24/2019 Sig: Throw out applicator. Use pea-size amount on your fingertip intravaginally 2-3x per week at night. Disposition: Return in about 2 months (around 12/24/2019). Follow-up and Disposition History Recorded Encounter Status:Closed by MALU NORMAN PA-C on 10/24/19 [facility] PROGRESSon 10-24-2019 PROGRESS HNO ID: [id number] Author: Madhuri Marmolejo Ma Service: ? Author Type: ? Type: Progress Notes Filed: 10/24/2019 1:08 PM Note Text: PVR = 00ml Via bladder scan. Normal [facility] PROGRESS HNO ID: [id number] Author: Malu Norman (Pa) Service: ? Author Type: Physician Tow Feeder Type: Progress Notes Filed: 10/24/2019 1:51 PM Note Text: [facility] FOR FEMALE PELVIC MEDICINE AND RECONSTRUCTIVE SURGERY PATIENT HISTORY AND PHYSICAL EXAM PATIENT INFO: Chiquis Walker is a 69 year old female. HISTORY CHIEF COMPLAINT: UTIs HPI : Chiquis Walker is a 69 year old female who presents today for UTIs for many years. Typical symptoms of UTI - burning with urination. Sometimes intermittent discomfort in RLQ. Most recent infection she was on macrobid 100mg BID x 10 days. She then had bactrim for 5 days - minimal improvement in symptoms. Burning is present all the time - worse with sitting/laying down, better with walking. She brought in dipstick results, but no urine cultures. She reports about 4-5 infections in the past year. She denies gross hematuria with UTIs recently. She is usually seen and treated by Dr. Car Dong, her PCP out of [place]. Repeat urine 10/03/2019: moderate leuks, trace protein, negative blood, negative nitrate. KATHE: No URGENCY: No UI: Yes PADS: No FREQUENCY:5 per day NOCTURIA: 1 per night STRAINING TO VOID: Yes - in the morning EMPTIES COMPLETELY: Yes UTI: 4-5 past 12 months FLUIDS: 32 oz total fluid Caffeine: 1 cup coffee daily SEXUALLY ACTIVE: yes, monogamous DYSPAREUNIA: YES PREGNANCIES: 4, Para 4 Post-menopause: yes Have you had a hysterectomy:YES - POP; cystocele and rectocele repair Postmenopausal bleeding:No Sense of vaginal bulge:NO HEMATURIA HX: No STONES: No GI: IBS with diarrhea; occasional FI Do you have any new weakness,balance or coordination problems:NO Do you have a history of any diagnosed back or Neurological problems:YES HISTORIES: No past medical history on file. No past surgical history on file. No family history on file. Social History Tobacco Use - Smoking status: Never Smoker - Smokeless tobacco: Never Used Substance Use Topics - Alcohol use: Not on file - Drug use: Not on file The patient's family history is not related to the condition for which the patient is being seen MEDICATIONS: Current Outpatient Medications Medication Sig - Levothyroxine 125 mcg cap Take 125 mcg by mouth once daily. - eszopiclone (LUNESTA) 3 mg tab Take 3 mg by mouth daily at bedtime. - metoprolol barlow-hydrochlorothiaz 25-12.5 mg Tb24 Take 25 mg by mouth once daily. - rosuvastatin (CRESTOR) 20 mg tablet Take 20 mg by mouth once daily. - rizatriptan (MAXALT) 10 mg tablet Take 10 mg by mouth as needed. May repeat in 2 hours if needed - sertraline (ZOLOFT) 50 mg tablet Take 50 mg by mouth once daily. No current facility-administere d medications for this visit. ALLERGIES: Patient has no allergy information on record. GENERAL REVIEW OF SYSTEMS: GENERAL: negative for malaise, significant weight loss and fever HEAD AND NECK: No blurred vision or Sjogren's syndrome SKIN: Negative for lesions, rash, and itching. RESPIRATORY: Negative for cough and shortness of breath CARDIOVASCULAR: Negative for chest pain or HI GI: SEE HPI GENITOURINARY: SEE HPI ENDOCRINE:Positive for thyroid issues NEURO: Positive for numbness and tingling in feet. MUSCULOSKELETAL: Negative for joint pain or swelling, back pain or muscle pain BLOOD/LYMPHATIC: No easy bleeding, easy bruising, transfusion Hx PSYCH: anxiety, depression PHYSICAL EXAM: VITAL SIGNS: BP (!) 97/48 Pulse 75 Temp 36.7 ?C (98.1 ?F) (Oral) Ht 163.8 cm (5' 4.5 ) Wt 78 kg (172 lb) BMI 29.07 kg/m? GENERAL: Well appearing, alert, in no acute distress, well-hydrated, well nourished. HEAD AND NECK: No masses, adenopathy. RESP: NL effort, no retractions or purse-lip breathing. CV: No extremity swelling, varices, edema, pallor, or erythema ABDOMEN: Soft, nontender, nondistended, no masses. BACK: No CVA tenderness, no tenderness to palpation of spinal muscles. SKIN/LYMPH: No rash, lesions NEURO/PSYCH: No signs of depression, anxiety, or agitation EXTREMITIES: Extremities normal. No deformities, edema, clubbing or skin discoloration. GENITOURINARY: External genitalia: nl. Hair distribution, no lesions Urethra without mass, tenderness, scarring. Bladder non-palpable without masses/tenderness. Vaginal appearance normal without discharge. Estrogen low No POP - good support. PVR: 0 mL via bladder US UA: Normal IMPRESSION AND PLAN: ASSESSMENT/PLAN: 1. Vaginal burning - ICD9: 625.8, ICD10: N94.9 (primary diagnosis) - Patient's most bothersome symptom. Thought it was related to UTI. - No improvement after 10 days macrobid, 5 days bactrim. - Present all the time, worse with sitting down, laying; better with walking. - Suspicious vaginal burning is related to vaginal atrophy. - Will have patient fill out record release form for urine cultures; she brought in dipstick test which showed moderate leuks, but negative blood/nitrates. - Discussed difference between dipstick and urine culture; explained urine cultures are absolutely essential to determining treatment. - Vaginal Atrophy-We reviewed the following education and treatment options for patients with vaginal atrophy ? Topical estrogen cream for atrophic vaginitis: fingertip application and side effect discussed. Pt to use 2-3 nights per week. every other night. Prescription and patient information provided to patient. ? Patient to notify office if too expensive. ? If symptoms worsen or return, patient to follow up with local provider but insist they send for urine culture; recommended increasing water intake and taking AZO if she can await culture results in 48 hours. ? RTC in 2 months for reassessment. 2. Vaginal atrophy - ICD9: 627.3, ICD10: N95.2 - See above. 3. Screening for genitourinary condition - ICD9: V81.6, ICD10: Z13.89 - UA DIP, URINE (POC) Malu Norman PA-C Normal [facility] SHOULDER LT 1 VIEWon 019 SHOULDER LT 1 VIEW *FINAL Date of Service: 11/19/2018 08:57 Adm #: [id number] Reading Dr:CASEY ANTONIO Signoff Dr: CASEY ANTONIO PROCEDURE: SHOULDER LT 1 VIEW - IXR 0485 REASON FOR EXAM: Post op RESULT: SHOULDER LT 1 VIEW one view portable postop, Grashey view Clinical: Post op shoulder pain, postop shoulder replacement. FINDINGS: A reverse shoulder prosthesis is satisfactory position and there is air in the soft tissues from recent surgery. Impression: 1. Satisfactory position of a reverse shoulder prosthesis with postsurgical changes This report has been produced using speech recognition. Original Interpreting Physician: CASEY ANTONIO M.D. Original Transcribed by/Date: PSCB Nov 19 2018 12:37P Original Electronically Signed by/Date: CASEY ANTONIO M.D. Nov 19 2018 12:37P Addendum Interpreting Physician: Addendum Transcribed by/Date: NO ADDENDUM Addendum Electronically Signed by/Date: Normal [facility] CBC with Diffon 11-08-2018 AB IMMATURE NEUT 0.01 K/UL Normal 0.0-0.1 [facility] Comment on above: Performed By: #### C BCD #### [facility] [place] [address] [place] [address] ABS BASO 0.04 K/UL Normal 0.00-0.22 [facility] Comment on above: Performed By: #### C BCD #### [facility] [address] [place] [address] ABS EOS 0.25 K/UL Normal 0-0.45 [facility] Comment on above: Performed By: #### C BCD #### [facility] [place] [address] [place] [address] ABS NEUTROPHILS 4.01 K/UL Normal 1.8-7.7 [facility] Comment on above: Performed By: #### C BCD #### [facility] [place] [address] [place] [address] ABS.NEUT.CALCULATED Normal [facility] Comment on above: Result Comment: 4.01 Performed at [place] [address] [facility] [address] Performed By: #### C BCD #### [facility] [place] [address] [place] [address] Basophils/100 WBC (Bld) 0.50 % Normal 0-1 L [facility] Comment on above: Performed By: #### C BCD #### [facility] [place] [address] [place] [address] DIFF TYPE AUTO DIFF Normal [facility] Comment on above: Performed By: #### C BCD #### [facility] [place] [address] [place] [address] Eosinophils/100 WBC (Bld) 3.20 % High 0-3 [facility] Comment on above: Performed By: #### C BCD #### [place] [address] [place] [address] Erythrocyte distribution width (RBC) [Ratio] 12.2 % Normal 11.7-15.0 [facility] Comment on above: Performed By: #### C BCD #### [place] [address] [place] [address] Hematocrit (Bld) [Volume fraction] 42.7 % Normal 36-44 [facility] Comment on above: Performed By: #### C BCD #### [place] [address] [place] [address] Hemoglobin (Bld) [Mass/Vol] 14.4 g/dL Normal 12.0-15.0 [facility] Comment on above: Performed By: #### C BCD #### [place] [address] [place] [address] Lymphocytes (Bld) [#/Vol] 2.58 10*3/uL Normal 1.2-3.2 [facility] Comment on above: Performed By: #### C BCD #### [place] [address] [place] [address] Lymphocytes/100 WBC (Bld) 33.50 % Normal 20-40 [facility] Comment on above: Performed By: #### C BCD #### [facility] [place] [address] [place] [address] MCH (RBC) [Entitic mass] 32.6 pg Normal 26-34 [facility] Comment on above: Performed By: #### C BCD #### [facility] [place] [address] [place] [address] MCHC (RBC) [Mass/Vol] 33.7 % Normal 31-37 [facility] Comment on above: Performed By: #### C BCD #### [facility] [place] [address] [place] [address] MCV (RBC) [Entitic vol] 96.6 fL Normal 80-100 L [facility] Comment on above: Performed By: #### C BCD #### [place] [address] [address] [facility] [place] [place] [address] MEAN PLT VOL 11.1 CU Normal 7.0-12.6 [facility] Comment on above: Performed By: #### C BCD #### [place] [address] [place] [address] Monocytes (Bld) [#/Vol] 0.82 10*3/uL High 0-0.8 [facility] Comment on above: Performed By: #### C BCD #### [place] [address] [place] [address] Monocytes/100 WBC (Bld) 10.60 % High 0-8 L [facility] Comment on above: Performed By: #### C BCD #### [facility] [place] [address] [place] [address] Neutrophils/100 WBC (Bld) 0.10 % Normal 0.0-1.0 [facility] Comment on above: Performed By: #### C BCD #### [facility] [place] [address] [place] [address] Neutrophils/100 WBC (Bld) 52.10 % Normal 50-70 [facility] Comment on above: Performed By: #### C BCD #### [facility] [place] [address] [place] [address] NRBC'S 0 /100 WBC Normal 0 [facility] Comment on above: Performed By: #### C BCD #### [facility] [place] [address] [place] [address] Platelets (Bld) [#/Vol] 226 10*3/uL Normal 150-450 [facility] Comment on above: Performed By: #### C BCD #### [facility] [place] [address] [place] [address] RBC (Bld) [#/Vol] 4.42 M/UL Normal 4.0-4.9 [facility] Comment on above: Performed By: #### C BCD #### [place] [address] [place] [address] RDW-SD 43.1 FL Normal 37.0-54.0 [facility] Comment on above: Performed By: #### C BCD #### [place] [address] [place] [address] WBC (Bld) [#/Vol] 7.7 10*3/uL Normal 4.5-11.0 [facility] Comment on above: Performed By: #### C BCD #### [place] [address] [place] [address] COMPREHENSIVE METABOLIC PANE Grant 11-08-2018 Albumin [Mass/Vol] 4.2 g/dL Normal 3.5-5.0 [facility] Comment on above: Performed By: #### C FOX FARMER #### [facility] [place] [address] [place] [address] Albumin/Globulin [Mass ratio] 1.3 {ratio} Low 1.5-3.0 [facility] Comment on above: Performed By: #### C FOX FARMER #### [facility] [address] [place] [address] ALP [Catalytic activity/Vol] 97 U/L Normal 35-125 [facility] Comment on above: Performed By: #### C FOX FARMER #### [facility] [place] [address] [place] [address] ALT [Catalytic activity/Vol] 17 U/L Normal 5-40 [facility] Comment on above: Performed By: #### C FOX FARMER #### [facility] [address] [place] [address] Anion gap [Moles/Vol] 10 mmol/L Normal 0-19 [facility] Comment on above: Performed By: #### C FOX FARMER #### [facility] [address] [place] [address] AST [Catalytic activity/Vol] 20 U/L Normal 5-40 [facility] Comment on above: Performed By: #### C FOX FARMER #### [facility] [address] [place] [address] Bilirubin [Mass/Vol] 0.3 mg/dL Normal 0.1-1.2 [facility] Comment on above: Performed By: #### C FOX FARMER #### [facility] [place] [address] [place] [address] Calcium [Mass/Vol] 9.6 mg/dL Normal 8.5-10.4 [facility] Comment on above: Performed By: #### C FOX FARMER #### [facility] [place] [address] [place] [address] Chloride [Moles/Vol] 104 mmol/L Normal 97-107 [facility] Comment on above: Performed By: #### C FOX FARMER #### [facility] [place] [address] [place] [address] CO2 [Moles/Vol] 26 mmol/L Normal 24-31 [facility] Comment on above: Performed By: #### C FOX FARMER #### [facility] [place] [address] [place] [address] Creatinine [Mass/Vol] 0.8 mg/dL Normal 0.4-1.6 [facility] Comment on above: Performed By: #### C FOX FARMER #### [facility] [place] [address] [place] [address] GFR/1.73 sq M.predicted MDRD (S/P/Bld) [Vol rate/Area] Normal [facility] Comment on above: Result Comment: 75 GFR ml/min/1.73m2 Stage ----- 90 1 60-89 2 30-59 3 15-29 4 <15 5 For -Americans, multiply EGFR result by 1.210 Calculation not validated for patients under 18 years of age. Performed at [address] [address] Performed By: #### C FOX FARMER #### [address] [address] Globulin (S) [Mass/Vol] 3.2 g/dL Normal 1.9-3.7 [facility] Comment on above: Performed By: #### C FOX FARMER #### [facility] [address] [address] Glucose [Mass/Vol] 95 mg/dL Normal 65-99 [facility] Comment on above: Performed By: #### C FOX FARMER #### [address] [address] Potassium [Moles/Vol] 4.2 mmol/L Normal 3.4-5.1 [facility] Comment on above: Performed By: #### C FOX FARMER #### [address] [address] Protein [Mass/Vol] 7.4 g/dL Normal 5.9-7.9 [facility] Comment on above: Performed By: #### C FOX FARMER #### [address] [address] Sodium [Moles/Vol] 140 mmol/L Normal 133-145 [facility] Comment on above: Performed By: #### C FOX FARMER #### [address] [address] Urea nitrogen [Mass/Vol] 11 mg/dL Normal 8-25 [facility] Comment on above: Performed By: #### C FOX FARMER #### [facility] [address] [address] Urea nitrogen/Creatinine [Mass ratio] 13.8 RATIO Normal 8-21 [facility] Comment on above: Performed By: #### C FOX FARMER #### [address] [address] UA-REFLEX TO CULTUREon 11-08 BACT Negative Normal [facility] Comment on above: Performed By: #### U ACUL #### [facility] [address], [place] [address] MICROSCOPIC AUTOMATIC MICROSCOPIC URINES Normal [facility] Comment on above: Performed By: #### U ACUL #### [facility] [address], [place] [address] RBC 1 /HPF Normal 0-3 [facility] Comment on above: Performed By: #### U ACUL #### [facility] [address], [place] [address] URINE HYALINE CAST NONE SEEN Normal [facility] Comment on above: Performed By: #### U ACUL #### [facility] [address], [place] [address] URINE SQUAMOUS EPI NONE SEEN Normal [facility] Comment on above: Performed By: #### U ACUL #### [facility] [address], [place] [address] WBC (Bld) [#/Vol] NONE SEEN Normal 0-3 [facility] Comment on above: Performed By: #### U ACUL #### [facility] [address], [place] [address] Bacteria identified Cx Nom (U) Normal [facility] Comment on above: Result Comment: CULT URE NOT INDICATED Performed at [facility] [address] [place] [address] Performed By: #### U ACUL #### [facility] [address], [place] [address] BILI Negative Normal NEG [facility] Comment on above: Performed By: #### U ACUL #### [facility] [address], [place] [address] BLOOD Negative Normal NEG [facility] Comment on above: Performed By: #### U ACUL #### [facility] [address], [place] [address] Clarity (U) CLEAR Normal [facility] Comment on above: Performed By: #### U ACUL #### [facility] [address], [place] [address] Color (U) PALE YELLOW Normal [facility] Comment on above: Performed By: #### U ACUL #### [facility] [address], [place] [address] GLUC Negative Normal NEG [facility] Comment on above: Performed By: #### U ACUL #### [facility] [address], [place] [address] KET Negative Normal NEG [facility] Comment on above: Performed By: #### U ACUL #### [facility] [address], [place] [address] LEUK Negative Normal NEG [facility] Comment on above: Performed By: #### U ACUL #### [facility] [address], [place] [address] NIT Negative Normal NEG [facility] Comment on above: Performed By: #### U ACUL #### [facility] [address], [place] [address] pH (U) 6.0 [pH] Normal 4.6-8.0 [facility] Comment on above: Performed By: #### U ACUL #### [facility] [address], [place] [address] PROT Negative Normal NEG [facility] Comment on above: Performed By: #### U ACUL #### [facility] [address], [place] [address] SP GRAV,URINE 1.011 Normal 1.005-1.030 [facility] Comment on above: Performed By: #### U ACUL #### [facility] [address], [place] [address] URO NORMAL Normal 0-1.0 [facility] Comment on above: Performed By: #### U ACUL #### [facility] [address], [place] [address] ARTHROGRAM SHOULDER INJCT RT on 09-10-2018 ARTHROGRAM SHOULDER INJCT RT DATE OF EXAM: Sep 10 2018 10:50AM CLINICAL HISTORY/ Patient Name: CHIQUIS WALKER STUDY: ARTHROGRAM SHOULDER INJCT RT; 09/10/2018 10:50 am INDICATION: localized, primary OA of shoulder region. COMPARISON: None. ACCESSION NUMBER(S): [id number] ORDERING CLINICIAN: JOSHUA CARY TECHNIQUE: The procedure is explained to the patient including the potential risks and benefits. Understanding the risks, the patient agrees to have the procedure performed. FINDINGS: The right shoulder is prepped and draped in the usual sterile fashion. 2% lidocaine is used to anesthetize the skin and underlying soft tissues. Under fluoroscopic guidance, a 22 gauge spinal needles inserted into the inferior glenohumeral joint without difficulty. The intra-articular location of the needle tip was confirmed following administration of 2 cc of Isovue-300. Thereafter, a combination of 2% lidocaine, 0.5 % bupivacaine, and 80 mg of Depo-Medrol are infused into the shoulder capsule. The patient tolerated the procedure well, without immediate complication. The patient left the fluoroscopy suite in stable condition. The total fluoroscopy time is 23 seconds. CONCLUSION: IMPRESSION: Successful fluoroscopic guided anesthetic injection of the right shoulder. Normal [facility] ARTHROGRAM SHOULDER INJCT LT on 08-11-2018 ARTHROGRAM SHOULDER INJCT LT DATE OF EXAM: Aug 11 2018 10:06AM CLINICAL HISTORY/ Patient Name: CHIQUIS WALKER STUDY: ARTHROGRAM SHOULDER INJCT LT; 08/11/2018 10:06 am INDICATION: impingement syndrome, shoulder; shoulder pain. COMPARISON: None. ACCESSION NUMBER(S): [id number] ORDERING CLINICIAN: JOSHUA CARY TECHNIQUE: The procedure is explained to the patient including the potential risks and benefits. Understanding the risks, the patient agrees to have the procedure performed. FINDINGS: The left shoulder is prepped and draped in the usual sterile fashion. 2% lidocaine is used to anesthetize the skin and underlying soft tissues. Under fluoroscopic guidance, a 22 gauge spinal needles inserted into the anterior shoulder capsule over the medial humeral head. The intra-articular location is confirmed following administration of 2-3 cc of Isovue-300. Thereafter, a combination of 2% lidocaine, 0.5% bupivacaine, and 80 mg of Depo-Medrol are infused into the shoulder capsule. The patient tolerated the procedure well, without immediate complication. Patient left the fluoroscopy suite in stable condition. The total fluoroscopy time is 23 seconds. CONCLUSION: IMPRESSION: Successful fluoroscopic guided anesthetic injection of the left shoulder. Normal [facility] eOperative Reporton 06-10-20 18 eOperative Report [address] [address] OPERATIVE REPORT Patient Name:CHIQUIS WALKER Dictating Physician: Joshua Cary M.D. Admission Date: 06/01/2018 Discharge Date: 06/01/2018 Originally dictated on June 01, 2018. Evidently, I did not go through. PREOPERATIVE DIAGNOSES: 1. Left rotator cuff tear. 2. Left shoulder impingement. 3. Left labral tear. 4. Left long head biceps tear. PROCEDURE PERFORMED: Arthroscopic extensor debridement of labral and biceps tear, arthroscopic subacromial decompression, and arthroscopic rotator cuff repair. BLOOD LOSS: Minimal. FLUIDS: Less than 2 L. ANESTHESIA: General with a regional block. COMPLICATIONS: None. SURGEON: Joshua Cary M.D. DRY ROOM ATTENDANT: Joshua Palumbo PA-C. SUMMATION OF EVENT: Johsua Palumbo PA-C, was present throughout the entire case. Given the nature of the disease process and the procedure, a skilled surgical asst was necessary during the case. The assistant production editor was necessary to hold retractors and manipulate the extremity during the procedure. A certified alcohol counselor was at the back table managing the instruments and supplies for the surgical case. The patient was brought to operating room, induction of anesthesia, placed in lateral position. The arm had good full motion. Standard portals were established. Upon entering the joint with on moderate glenohumeral joint osteoarthritic change, most notably on the inferior glenoid, central portion of the humerus as well had grade 3 and some grade 4 change. There was some cartilage fragments and debris along the labrum with labral tear anteriorly, superiorly, and posteriorly, that was debrided extensively including part of the biceps and biceps base. The residual biceps that was left was intact. The residual labral tearing was intact after debridement. Again, the moderate osteoarthritic change was documented and noted and cleaned and smoothed over the articular surface. In the subbursal space, we entered the subbursal space with a lateral portal and posterior reused portal, completed a bursectomy, decompression shoulder should be from back to front, removing a sizable 12 mm osteophyte off the undersurface of the acromion. Upon completion, a decompression and full-thickness rotator cuff tear was seen easily that suggested on the articular side. The full-thickness tear was debrided, cleaned, freshened, and smoothed about an 1 cm tear with minimal retraction. Percutaneously, a maritime pilot hole was made and a 5.5 [employer] corkscrew was placed in good bone over the tuberosity. The leading edge of the sutures were then passed in a complex fashion and Caleb-Checo type pattern around the tear and then arthroscopically tied completing a smooth and firm repair to the anterior greater tuberosity. Final pictures were taken. Photo documentation completed. The shoulder bursal space was drained. Portal closure, bulky dressing, sling, and the patient was taken to recovery room. Joshua Cary M.D. INTERNAL JOB NUMBER: [id number] CC: Electronically signed by Joshua Cary MD on 10 Jun 2018 15:25:48 GMT Normal [facility] eHistory And Physical 10-0 istory And Physical [place] [id number] HISTORY AND PHYSICAL EXAMINATION Patient Name:CHIQUIS WALKER Dictating Physician: Joshua Cary M.D. Admission Date: 06/01/2018 Discharge Date: CHIEF COMPLAINT: Left shoulder pain. HISTORY OF PRESENT ILLNESS: The patient has had left shoulder pain ongoing for over a year, night pain, pain with overhead activity. We tried conservative therapy over the course of 3 months that failed to provide her relief. MRI does reveal rotator cuff tendon tearing as well as subacromial impingement. After risks, benefits, and alternatives were discussed, she elected to proceed with surgical intervention for left shoulder arthroscopy, subacromial decompression, rotator cuff repair. Surgery will be on June 01, 2018 at [facility]. We will order scalene nerve block preoperatively. ALLERGIES: NO KNOWN DRUG ALLERGIES. PAST MEDICAL HISTORY: Significant for osteoarthritis, irritable bowel, hypertension, and history of blood clots and cancer. PREVIOUS SURGICAL HISTORY: Significant for previous shoulder surgery, hip surgery, hysterectomy as well as tonsillectomy, and appendectomy. Denies any problems with anesthetic. SOCIAL HISTORY: She is retired, . Denies substance abuse. Denies alcohol use. Denies any smoking history. FAMILY HISTORY: Mother with osteoarthritis and pneumonia. father had osteoarthritis. REVIEW OF SYSTEMS: Noncontributory. PHYSICAL EXAMINATION: GENERAL: A 68-year-old female, height 5 feet 4-1/2 inches. HEENT: Eyes: Pupils are equal, round, and reactive to light and accommodation. Extraocular eye muscles are intact. CHEST: Lungs are clear to auscultation bilaterally. CARDIAC: Regular rate and rhythm. No murmurs, rubs, or gallops appreciated. ABDOMEN: Soft, nontender. Normoactive bowel sounds x4 quadrants. EXTREMITIES: Left shoulder patient has forward flexion up to 120, abduction 90, external rotation of 50, internal rotation to L5. NEUROLOGIC: Cranial nerves II through XII grossly intact. ASSESSMENT: Left shoulder impingement and rotator cuff tendon tearing. PLAN: Left shoulder arthroscopy, subacromial decompression, and rotator cuff repair. Surgery will be on June 01, 2018, at [facility]. The patient will follow up postop at [facility]. Joshua Palumbo PA-C for Joshua Cary M.D. INTERNAL JOB NUMBER: [id number] CC: Electronically signed by Joshua Cary MD on 01 Jun 2018 11:09:40 GMT Normal [facility] CBC With Differentialon 100 Basophils #/vol (Bld) 0.05 10*3/uL Normal 0.01-0.07 [facility] Comment on above: Performed By: #### 2 [id number] #### [facility] [address] [place] [address] Basophils/100 WBC (Bld) 0.8 % Normal 0.1-1.2 [facility] Comment on above: Performed By: #### 2 [id number] #### [facility] [address] [place] [address] Eosinophils #/vol (Bld) 0.25 10*3/uL Normal 0.04-0.50 [facility] Comment on above: Performed By: #### 2 [id number] #### [facility] [address] [place] [address] Eosinophils/100 WBC (Bld) 3.9 % Normal 0.0-8.1 [facility] Comment on above: Performed By: #### 2 [id number] #### [facility] [address] [place] [address] Erythrocyte distribution width Ratio (RBC) 12.3 % Normal 12.0-15.4 [facility] Comment on above: Performed By: #### 2 [id number] #### [facility] [address] [place] [address] Hematocrit Volume Fraction (Bld) 38.9 % Normal 36.5-46.6 [facility] Comment on above: Performed By: #### 2 [id number] #### [facility] [address] [place] [address] Hemoglobin mass conc (Bld) 13.5 g/dL Normal 11.8-15.3 [facility] Comment on above: Performed By: #### 2 [id number] #### [facility] [address] [place] [address] Imm Grans Absolute 0.01 10*3/uL Normal 0.00-0.21 [facility] Comment on above: Performed By: #### 2 [id number] #### [facility] [address] [place] [address] Immature granulocytes #/vol (Bld) 0.2 % Normal [facility] Comment on above: Performed By: #### 2 [id number] #### [facility] [address] [place] [address] Lymphocytes #/vol (Bld) 2.59 10*3/uL Normal 0.40-2.84 [facility] Comment on above: Performed By: #### 2 [id number] #### [facility] [address] [place] [address] Lymphocytes/100 WBC (Bld) 40.2 % Normal 15.7-50.5 [facility] Comment on above: Performed By: #### 2 [id number] #### [facility] [address] [place] [address] MCH Entitic mass (RBC) 32.2 pg Normal 27.5-33.0 [facility] Comment on above: Performed By: #### 2 [id number] #### [facility] [address] [place] [address] MCHC mass conc (RBC) 34.7 g/dL Normal 30.1-35.0 [facility] Comment on above: Performed By: #### 2 [id number] #### [facility] [address] [place] [address] MCV Entitic volume (RBC) 92.8 fL Normal 85.4-100.0 [facility] Comment on above: Performed By: #### 2 [id number] #### [facility] [address] [place] [address] Monocytes #/vol (Bld) 0.75 10*3/uL Normal 0.25-0.83 [facility] Comment on above: Performed By: #### 2 [id number] #### [facility] [address] [place] [address] Monocytes/100 WBC (Bld) 11.6 % Normal 4.8-12.7 [facility] Comment on above: Performed By: #### 2 [id number] #### [facility] [address] [place] [address] Neutrophils Absolute 2.79 10*3/uL Normal 1.95-6.85 [facility] Comment on above: Performed By: #### 2 [id number] #### [facility] [address] [place] [address] Neutrophils/100 WBC (Bld) 43.3 % Normal 36.8-73.2 [facility] Comment on above: Performed By: #### 2 [id number] #### [facility] [address] [place] [address] NRBC Absolute 0.00 10*3/uL Normal [facility] Comment on above: Performed By: #### 2 [id number] #### [facility] [address] [place] [address] NRBC Automated 0.0 /100{WBCs} Normal [facility] Comment on above: Performed By: #### 2 [id number] #### [facility] [address] [place] [address] Platelet mean volume Entitic volume (Bld) 11.0 fL Normal 9.9-12.1 [facility] Comment on above: Performed By: #### 2 [id number] #### [facility] [address] [place] [address] Platelets #/vol (Bld) 217 10*3/uL Normal 155-404 [facility] Comment on above: Performed By: #### 2 [id number] #### [facility] [address] [place] [address] RBC #/vol (Bld) 4.19 10*6/uL Normal 3.85-5.10 [facility] Comment on above: Performed By: #### 2 [id number] #### [facility] [address] [place] [address] RDW SD 42.1 fL Normal 39.3-48.6 [facility] Comment on above: Performed By: #### 2 [id number] #### [facility] [address] [place] [address] WBC #/vol (Bld) 6.4 10*3/uL Normal 4.4-9.9 [facility] Comment on above: Performed By: #### 2 [id number] #### [facility] [address] [place] [address] Comprehensive Metabolic Pane grant 05-27-2018 Albumin mass conc 4.2 g/dL Normal 3.4-5.0 [facility] Comment on above: Performed By: #### 1 [id number] #### [facility] [address] [place] [address] Albumin/Globulin mass ratio 1.6 {ratio} Normal 0.9-2.4 [facility] Comment on above: Performed By: #### 1 [id number] #### [facility] [address] [place] [address] ALP enzyme act/vol 85 U/L Normal 45-117 [facility] Comment on above: Performed By: #### 1 [id number] #### [facility] [address] [place] [address] ALT enzyme act/vol 20 U/L Normal 7-45 [facility] Comment on above: Performed By: #### 1 [id number] #### [facility] [address] [place] [address] Anion gap molar conc 12 mmol/L Normal 10-20 [facility] Comment on above: Performed By: #### 1 [id number] #### [facility] [address] [place] [address] AST enzyme act/vol 21 U/L Normal 13-39 [facility] Comment on above: Performed By: #### 1 [id number] #### [facility] [address] [place] [address] Bilirubin mass conc 0.4 mg/dL Normal 0.0-1.2 [facility] Comment on above: Performed By: #### 1 [id number] #### [facility] [address] [place] [address] Calcium mass conc 9.5 mg/dL Normal 8.6-10.3 [facility] Comment on above: Performed By: #### 1 [id number] #### [facility] [address] [place] [address] Chloride molar conc 106 mmol/L Normal 98-107 [facility] Comment on above: Performed By: #### 1 [id number] #### [facility] [address] [place] [address] Creatinine mass conc 0.79 mg/dL Normal 0.50-1.05 [facility] Comment on above: Performed By: #### 1 [id number] #### [facility] [address] [place] [address] GFR/1.73 sq M.predicted MDRD vol rate/area mL/min/{1.73_m2} Normal [facility] Comment on above: Result Comment: Inte rpretation for Chronic Kidney Disease: Stages 1&2 >60 Healthy or potential kidney damage. Mild decrease of GFR. Stage 3 30-59 Moderate decrease of GFR. Stage 4 15-29 Severe decrease of GFR. Stage 5 <15 Kidney failure or on dialysis. Performed By: #### 1 [id number] #### [facility] [address] [place] [address] Glucose mass conc 87 mg/dL Normal 70-100 [facility] Comment on above: Performed By: #### 1 [id number] #### [facility] [address] [place] [address] HCO3 molar conc (Bld) 25 mmol/L Normal 21-32 [facility] Comment on above: Performed By: #### 1 [id number] #### [facility] [address] [place] [address] Potassium molar conc 3.9 mmol/L Normal 3.5-5.1 [facility] Comment on above: Performed By: #### 1 [id number] #### [facility] [address] [place] [address] Protein mass conc 6.9 g/dL Normal 6.4-8.2 [facility] Comment on above: Performed By: #### 1 [id number] #### [facility] [address] [place] [address] Sodium molar conc 139 mmol/L Normal 136-145 [facility] Comment on above: Performed By: #### 1 [id number] #### [facility] [address] [place] [address] Urea nitrogen mass conc 8 mg/dL Normal 6-23 [facility] Comment on above: Performed By: #### 1 [id number] #### [facility] [address] [place] [address] Urea nitrogen/Creatinine mass ratio 10 mg/mg Normal 5-25 [facility] Comment on above: Performed By: #### 1 [id number] #### [facility] [address] [place] [address] Partial Thromboplastin Timeo n 05-27-2018 aPTT Coag time (Bld) 30.4 s Normal 25.0-36.0 [facility] Comment on above: Result Comment: . The APTT is no longer used for monitoring Unfractionated Heparin Therapy. For monitoring Heparin Therapy, use the Heparin Assay. Performed By: #### 3 [id number] #### [facility] [address] [place] [address] Prothrombin Timeon 8 INR Coag RelTime (PPP) 0.93 {INR} Normal 0.90-1.10 [facility] Comment on above: Performed By: #### 3 [id number] #### [facility] [address] [place] [address] Prothrombin time (PT) Coag time (PPP) 10.3 s Normal 9.8-12.7 [facility] Comment on above: Performed By: #### [id number] #### [facility] [address] [place] [address] Urinalysison 05-27-2018 Appearance Nom (U) Clear Normal Clear [facility] Comment on above: Performed By: #### 1 [id number] #### [facility] [address] [place] [address] Ascorbic Acid Negative Normal Negative [facility] Comment on above: Performed By: #### 1 [id number] #### [facility] [address] [place] [address] Automated Urine Microscopy Performed Normal [facility] Comment on above: Performed By: #### 1 [id number] #### [facility] [address] [place] [address] Bacteria LM.HPF #/area (Urine sed) Rare Normal None [facility] Comment on above: Performed By: #### 1 [id number] #### [facility] [address] [place] [address] Bilirubin mass conc Negative Normal Negative [facility] Comment on above: Performed By: #### 1 [id number] #### [facility] [address] [place] [address] Blood Negative Normal Negative [facility] Comment on above: Performed By: #### 1 [id number] #### [facility] [address] [place] [address] Color Nom (U) Straw Normal [facility] Comment on above: Performed By: #### 1 [id number] #### [facility] [address] [place] [address] Glucose mass conc Negative Normal Negative [facility] Comment on above: Performed By: #### 1 [id number] #### [facility] [address] [place] [address] Ketones Ql (U) Negative Normal Negative [facility] Comment on above: Performed By: #### 1 [id number] #### [facility] [address] [place] [address] Leukocytes Esterase Moderate Abnormal Negative [facility] Comment on above: Performed By: #### 1 [id number] #### [facility] [address] [place] [address] Nitrite Ql (U) Negative Normal Negative [facility] Comment on above: Performed By: #### 1 [id number] #### [facility] [address] [place] [address] pH (Bld) 7.0 Normal 5.0-9.0 [facility] Comment on above: Performed By: #### 1 [id number] #### [facility] [address] [place] [address] Protein mass conc (U) Negative Normal Negative [facility] Comment on above: Performed By: #### 1 [id number] #### [facility] [address] [place] [address] RBC 1 /[HPF] Normal 0-3 [facility] Comment on above: Performed By: #### 1 [id number] #### [facility] [address] [place] [address] Specific gravity Relative Density (U) 1.005 Normal 1.003-1.035 [facility] are Comment on above: Performed By: #### 1 [id number] #### [facility] [address] [place] [address] Squamous Epithelial Cells 1 /[HPF] Normal 0-5 [facility] Comment on above: Performed By: #### 1 [id number] #### [facility] [address] [place] [address] Urobilinogen Qn (U) <2.0 Normal Negative [facility] Comment on above: Performed By: #### 1 [id number] #### [facility] [address] [place] [address] WBC 24 /[HPF] Normal 0-5 [facility] Comment on above: Performed By: #### 1 [id number] #### [facility] [address] [place] [address] Vital Signs Date Time Vital Sign Value Performing Clinician Zacarias gross 09-11-2022 11:45-0500 Body height 163.83 cm Joshua [place] II Other [employer] Other 09-11-2022 11:45-0500 Body mass index (BMI) [Ratio] 27.54 kg/m2 Joshua [place] II Other [employer] Other 09-11-2022 11:45-0500 Body weight 73.94 kg Joshua [place] II Other [employer] Other 02-11-2022 14:30-0400 Body height 163.83 cm Roger Khalil Other [employer] Other 02-11-2022 14:30-0400 Body mass index (BMI) [Ratio] 27.71 kg/m2 Roger Khalil Other [employer] Other 02-11-2022 14:30-0400 Body weight 74.39 kg Roger Khalil Other [employer] Other 01-21-2022 11:40-0400 Body height 163.83 cm Ag Mederos Other [employer] Other 01-21-2022 11:40-0400 Body mass index (BMI) [Ratio] 27.71 kg/m2 Ag Mederos Other [employer] Other 01-21-2022 11:40-0400 Body weight 74.39 kg Ag Mederos Other [employer] Other Encounters Encounter Date Encounter Type Care Provider Facility Start: 07-27-2023 End: 07-28-2023 ambulatory Sacha Good MD Facility: [facility] Start: 06-29-2023 End: 06-30-2023 ambulatory Sacha Good MD Facility: [facility] Start: 01-14-2023 End: 01-14-2023 ambulatory Car Bunting Facility:[facility] Start: 11-21-2022 End: 11-21-2022 Discharged Recurring DO Car Bunting Work Phone: [facility] [address] Start: 11-21-2022 Registered Recurring DO Car Bunting Work Phone: [facility] [address] Start: 11-21-2022 End: 11-21-2022 ambulatory Car Bunting Facility:[facility] Start: 11-21-2022 End: 11-21-2022 ambulatory DO Car Bunting Work Phone: [facility] Work Phone: Start: 11-21-2022 End: 11-21-2022 Patient encounter procedure DO Car Bunting Work Phone: [facility] [place] Work Phone: Start: 10-27-2022 ambulatory TI DUSTIN [facility] Start: 09-11-2022 End: 09-11-2022 ambulatory Joshua Valentin II Other [employer] Other Start: 09-11-2022 Office outpatient visit 25 minutes Joshua Valentin II [facility] Start: 08-22-2022 End: 08-22-2022 ambulatory Joshua Valentin II Facility:[facility] Start: 08-22-2022 End: 08-22-2022 ambulatory DO Car Bunting Work Phone: [facility] Work Phone: Start: 08-22-2022 End: 08-22-2022 Patient encounter procedure DO Car Bunting Work Phone: [facility] [address] Work Phone: Start: 07-28-2022 (Procedure) Duong Khalil [facility] Start: 07-28-2022 End: 07-28-2022 ambulatory Roger Khalil Other [employer] Other Start: 07-02-2022 FQ visit new patient Joshua Mason karma BEJARANO [facility] Start: 07-02-2022 End: 07-02-2022 ambulatory DO Car Bunting Work Phone: [facility] Work Phone: Start: 07-02-2022 End: 07-02-2022 Patient encounter procedure DO Car Bunting Work Phone: [facility] Start: 06-10-2022 End: 06-10-2022 ambulatory Joshua Valentin II Other [employer] Other Start: 06-10-2022 Telephone encounter Joshua Valentin CARLEE [facility] [employer] Start: 06-02-2022 End: 06-02-2022 ambulatory Car Bunting Facility:[facility] Start: 06-02-2022 End: 06-02-2022 ambulatory DO Car Bunting Work Phone: [facility] Work Phone: Start: 06-02-2022 End: 06-02-2022 Patient encounter procedure DO Car Bunting Work Phone: [facility] Start: 04-29-2022 End: 04-29-2022 ambulatory Car Bunting Facility:[facility] Start: 04-29-2022 End: 04-29-2022 Patient encounter procedure DO Car Bunting Work Phone: [facility] [place] Start: 03-27-2022 End: 03-27-2022 ambulatory Segun Funk Facility:[facility] Start: 03-27-2022 End: 03-27-2022 Departed Referred DO Car Bunting Work Phone: [facility] [place] Start: 03-24-2022 (Procedure) Short Roger Simmonscailin [facility] Start: 03-24-2022 End: 03-24-2022 ambulatory Roger Khalil Other [employer] Other Start: 03-10-2022 End: 03-10-2022 ambulatory Roger Khalil Other [employer] Other Start: 03-10-2022 Office outpatient visit 25 minutes Roger Khalil [facility] Start: 02-12-2022 End: 02-12-2022 ambulatory Roger Khalil Other [employer] Other Start: 02-12-2022 Telephone encounter Roger Ojeda [employer] Start: 02-11-2022 End: 02-11-2022 Patient encounter procedure DO Car Bunting Work Phone: [facility] Start: 02-11-2022 End: 02-11-2022 ambulatory Roger Simmonscailin [employer] Other Start: 02-11-2022 Office outpatient ne w 45 minutes Roger Khalil [facility] Start: 02-10-2022 End: 02-10-2022 ambulatory Arnold Hernandez Facility:[facility] Start: 02-10-2022 End: 02-10-2022 Patient encounter procedure DO Car Bunting Work Phone: [facility] [place] Start: 01-21-2022 End: 01-21-2022 ambulatory Ag Mederos Other [employer] Other Start: 01-21-2022 Office outpatient ne w 30 minutes Ag Mederos [facility] Start: 09-10-2018 Patient encounter procedure JOSHUA CARY Facility:[facility] Start: 09-10-2018 Patient encounter procedure Facility:[id number] Start: 09-06-2018 Patient encounter procedure JOSHUA CARY Facility:8 Start: 08-11-2018 Patient encounter procedure JOSHUA CARY Facility:[facility] Start: 08-11-2018 Patient encounter procedure Facility:[id number] Start: 08-05-2018 Patient encounter procedure JOSHUA CARY Facility:8 Start: 07-22-2018 Patient encounter procedure JOSHUA CARY Facility:8 Start: 06-24-2018 Patient encounter procedure JOSHUA CARY Facility:8 Start: 06-03-2018 Patient encounter procedure PONCHO CARY Facility:8 Start: 06-01-2018 End: 06-01-2018 Patient encounter procedure JOSHUA REGALADOLILLIANTRISHA Facility:[facility] Start: 05-31-2018 Patient encounter procedure CAR R BUNTING Facility:8 Start: 05-27-2018 Patient encounter procedure JOSHUA CARY Facility:[facility] Start: 03-29-2018 Patient encounter procedure JOSHUA CARY Facility:8 Start: 03-08-2018 Patient encounter procedure JOSHUA CARY Facility:8 Start: 01-11-2018 Patient encounter procedure JOSHUA CARY Facility:8 Procedures Date Procedure Procedure Detail Performing Clinician Start: 08-22-2022 MRI of right hip DO Law rin Bunting Work Phone: Start: 07-02-2022 Plain X-ray of right hip DO Car Bunting Work Phone: Start: 06-02-2022 Bilateral mammography D O Car Bunting Work Phone: Start: 06-02-2022 Ultrasonography of l eft breast DO Car Bunting Work Phone: Start: 02-11-2022 Plain x-ray of pelvi s and lower extremity DO Car Bunting Work Phone: Start: 02-10-2022 Ultrasonography of limb DO Car Bunting Work Phone: Start: 11-08-2018 Electrocardiogram Immunizations Immunization Date Immunization Notes Care Provider Jalen cordero 07-28-2016 influenza, high dose seasonal, preservative-free Ag Mederos Other [employer] Other Payers Date Payer Category Payer Medicare 2022 Medicare [id number] [id number]. [id number] 2021 Medicare [id number] 2. [id number] 2021 Self-pay [id number] 1950 Unknown [id number] 2.16.840.1.090395.3.579.2.356 1948 Unknown [id number] 2.16.840.1.830237.3.579.2.356 1948 Unknown [id number] 2.16.840.1.464624.3.579.2. 1948 Unknown [id number] 2.16.840.1.621341.3.579.2. 1948 Unknown [id number] 2.16.840.1.820847.3.579.2. 1948 Unknown [id number] 2.16.840.1.074167.3.579.2. 1948 Unknown [id number] 2.16.840.1.763582.3.579.2. 1948 Unknown [id number] 2.16.840.1.211414.3.579.2. 1948 Unknown [id number] 2.16.840.1.727258.3.579.2. 1948 Unknown [id number] 2.16.840.1.465425.3.579.2. 1948 Unknown [id number] 2.16.840.1.510410.3.579.2. 1948 Unknown [id number] 2.16.840.1.582656.3.579.2. 1948 Unknown [id number] 2.16.840.1.908663.3.579.2. 1948 Unknown [id number] 2.16.840.1.282186.3.579.2.355 1948 Unknown [id number] 2.16.840.1.303293.3.579.2.355 1948 Unknown [id number] 2.16.840.1.566294.3.579.2.355 1948 Unknown [id number] 2.16.840.1.453095.3.579.2.196 1948 Unknown [id number] 2.840.1.934296.3.579.2.196 Medicare Medicare [id number] Private Health Insurance MEB NVVFB Unknown [place] [id number] Unknown [id number] .840.1.019917.3.579.2.531 Unknown [id number] .840.1.160767.3.579.2.531 Unknown [id number] .840.1.657079.3.579.2.531 Unknown [id number] 2.840.1.000801.3.579.2.531 Unknown [id number] .840.1.898477.3.579.2.531 Unknown [id number] .840.1.311622.3.579.2.531 Unknown [id number] .840.1.923683.3.579.2.531 Unknown [id number] .840.1.680417.3.579.2.531 Unknown [id number] 2.840.1.817833.3.579.2.531 Unknown [id number] .840.1.833147.3.579.2.531 Social History Date Type Detail Facility Unknown if ever smoked [employer] Other Sex Assigned At Sex Assigned At Bir th [employer] Other Start: 01-06-2022 End: 01-06-2022 Tobacco smoking status NHIS Never smoked tobacco (finding) [facility] Start: 1950 Sex Assigned At Female F [facility] Progress note 10-27-2022 Note Date & Type Note Facility 10-27-2022 Note Orthopedic Surgery Subjective Pain of the Right Hip 10/27/22 Chiquis Walker is a 72 y.o. female presenting for evaluation of burning right buttock pain. She has tried 3 weeks of physical therapy without any relief of this. Her physical therapist believes that she has piriformis syndrome. She has also had an MRI of the right hip which demonstrates mild trochanteric bursitis and perhaps some gluteus medius tendinitis. Physical exam today is consistent with piriformis syndrome. If she does have trochanteric bursitis, it cannot be elicited on physical exam. She does have some underlying lumbar radiculopathy with known lumbar disc herniations. My recommendation would be to continue physical therapy for at least 6 weeks. I will call in a 3CLogic Dosepak as well. If she is not better from this, I would ask her to see Dr. He for evaluation of her underlying lumbar radiculopathy Review of Systems unremarkable aside from what is noted in HPI Joint pain Patient History Past Surgical History: Procedure Laterality Date FOOT SURGERY Bilateral HIP SURGERY Right HYSTERECTOMY TOTAL SHOULDER ARTHROPLASTY Past Medical History: Diagnosis Date IBS (irritable bowel syndrome) Objective General: Body mass index is 26.43 kg/m???. No acute distress, comfortable Respiratory: Unlabored breathing with normal rate, no cough Cardiovascular: Warm well perfused extremities Psych: Appropriate mood behavior Bilateral hips demonstrate negative logroll, full range of motion, good strength, no instability. No tenderness palpation of the trochanteric bursae and no tenderness of the psoas tendons. Lumbar back exam demonstrates no tenderness palpation of the midline spine. She does however have positive tenderness palpation of the sciatic nerve within the piriformis fossa on the right side only Imaging personally reviewed: MRI of the right hip demonstrates mild trochanteric bursitis and possibly gluteus medius tendinitis Assessment/Plan Chiquis Walker is a 72 y.o. year old female with Piriformis syndrome of right side Lumbar radiculopathy [facility] Evaluation note 09-11-2022 Note Date & Type Note Facility 09-11-2022 Evaluation note Encounter Date Diagnosis Assessment Notes Aug, Ischial bursitis of right side (ICD-10 - M70.71) Aug, Trochanteric bursitis of right hip (ICD-10 - M70.61) Aug, Right hip pain (ICD-10 - M25.551) Aug, Other I discussed the MRI findings with the patient and explained to her that it appears she still has some bursitis noted and may be some tendinitis in the gluteal tendons but I do not appreciate any specific tears in those tendons. Furthermore, intra-articular ly the hip looks good. At this point I do not think there is anything else I can offer her given the fact she is already gone through therapy several times and had multiple injections as well as medications. At this point I recommended referral to Dr Pierre at [facility] for evaluation of this chronic greater trochanteric bursitis. Patient agreed. We will get the referral made. [employer] Other Evaluation note 07-02-2022 Note Date & Type Note Facility 07-02-2022 Evaluation note Encounter Date Diagnosis Assessment Notes Jun, Right hip pain (ICD-10 - M25.551) Jun, Other I had a long discussion with the patient regarding etiology of her symptoms. I explained to her that her x-rays overall look good and I do not have any concern for osteoarthritic changes. However, she does have symptoms consistent with greater trochanteric bursitis as well as ischial bursitis. It appears that her ischial bursitis is much more symptomatic and as a result I would recommend a right ischial bursa steroid injection. We will get her back over to see Dr. Khalil for her right hip ischial bursa injection. She can follow-up with me in the future on a as needed basis. Think in the future if she is continuing to complain of pain over the greater trochanter we should get her into see a hip arthroscopist either with Jaren or Delma to determine if she is a candidate for another soft tissue procedure. [employer] Other Evaluation note 03-10-2022 Note Date & Type Note Facility 03-10-2022 Evaluation note Encounter Date Diagnosis Assessment Notes Feb, Other low back pain (ICD-10 - M54.59) Feb, Other spondylosis with radiculopathy, lumbar region (ICD-10 - M47.26) Patients primary complaint today is worsening low back pain radiating into the posterior aspect of her right lower extremity. Previous MRI results show evidence of spinal canal narrowing with mild bilateral neural foraminal narrowing at L5-S1, possibly contributing to her symptoms. Based on these results, as well as location of pain and exam findings, patient is a candidate for a right lumbar transforaminal epidural steroid injection which we will proceed with. Risks and benefits of procedure explained to patient; patient verbalizes understanding. Anatomy of spine discussed in detail with patient in regards to patients condition. Feb, Other chronic pain (ICD-10 - G89.29) Feb, Other Above note written by Blake Todd MA, Vision Impaired Teacher. Edited and approved by Dr. Roger Khalil MD [employer] Other Evaluation note 02-11-2022 Note Date & Type Note Facility 02-11-2022 Evaluation note Encounter Date Diagnosis Assessment Notes Jan, Hip pain (ICD-10 - M25.559) Patient is also complaining of hip pain. I will order xrays of her bilateral hips for further evaluation of her symptoms. Patient has been instructed results will be discussed at the patients follow up unless there are acute or urgent findings. We can consider proceeding with a an intra-articular hip joint injection in the future. Jan, Other low back pain (ICD-10 - M54.59) Patients primary complaint today is worsening low back and gluteal pain, most bothersome on the right side. Her symptoms appear consistent with the sacroiliac joint upon exam. Based on location of pain and exam findings, patient is a candidate for bilateral sacroiliac joint injections which we will proceed with. Risks and benefits of procedure explained to patient; patient verbalizes understanding. Another consideration could be a lumbar epidural steroid injection. We yvette follow up with the patient one week following her procedure. Anatomy of spine discussed in detail with patient in regards to patients condition. Jan, Other chronic pain (ICD-10 - G89.29) 21 Nacho, 2022 Other Above note written by Blake Todd MA, Vision Impaired Teacher. Edited and approved by Dr. Roger Khalil MD. Medical decision making shows a new problem to me with further workup planned or suggested with the potential for extensive treatment options that were considered with the most applicable given this patient's situation as noted above. Treatment options considered include a combination of physical therapy approaches, pharmacologic management, and interventional procedures. Those most applicable to the patient were discussed at this time. Risk of complications and/or morbidity and mortality is high given that acute and chronic pain poses a threat to life and bodily function if undertreated, poorly treated or with failure to maintain adequate treatment and timely followup. Given the serious and fluctuating nature of pain with extensive consideration for whenever pain changes, there always remains the possibility of prolonged functional impairment requiring constant patient reassessment and high-level medical decision making. The amount and complexity of data reviewed is high given that patient labs, radiology reports, and other test were obtained, reviewed and summarized as applicable from the physician portal and/or outside medical records. Pertinent positive and negative findings were considered in medical decision-making. 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 The patient has some general malalignment but no gross instability. She has osteoporosis. She has overall an adequate canal adequate foramen. Joints are spondylitic and appropriate for age. I do not see any surgical lesion that I could approach that would change this patient's symptoms. Her pain seems to be sacroiliac and posterior hip. A little bit of the posterior thigh but no true neurogenic claudication. I recommended pain management for her. I would even at 1 point consider posterior hip injection to see if that helps. Possibly a caudal block or epidurals may help this patient. I just do not think her symptoms are surgical in nature. A referral will be sent to pain management December, Posterior pain of left hip (ICD-10 - M25.552) December, Posterior pain of right hip (ICD-10 - M25.551) [employer] Other Evaluation note Note Date & Type Note Facility Evaluation note No Information [facility] Other Evaluation note Note Date & Type Note Facility Evaluation note No assessment information availa [facility] Work Phone: History general Narrative - Reported Note Date & Type Note Facility History general Narrative - Reported Type Medical History thyroid disease Medical History Cholesterol Medical History irregular heart beat Surgical History Hysterectomy 1997 Surgical History Foot Surgery Surgical History Rt. Shoulder surgery 2000 Surgical History Gallbladder removal Surgical History shoulder surgery Surgical History gallbladder Surgical History Right Shoulder surgery 2004 Surgical History Foot Surgery, excisi on of Neuroma 2nd space Rt 2014 Surgical History tonsillectomy Surgical History Right Hip surgery Surgical History shortening fernanda osteotimy 2nd m et RT 2014 Surgical History arthrodesis PIPJ 2nd Rt with Kw harish 2014 Surgical History insert of drain tube RT foot barlow rgury 2014 Surgical History open T&C 2nd toe RT Surgical History LT shoulder surgery 05/2018 Surgical History LT shoulder replacement 10/2018 Surgical History cholecystectomy 2005 Hospitalization History see surgical hx [employer] Other Summary Purpose Family History No Family History Records Found Relationship Condition Age at Onset Recorded 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/T 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 father Malignant neoplasm of prostate Unknown Heart disease Unknown History of coronary artery bypass surgery Unknown Not Specified Heart problem Unknown Advance Directives No Advanced Directives Records Found Advance Directive Response Recorded Date/ Time Advance Directives No July 10:37am Advance Directive Response Recorded Date/ Time Advance Directives No July 9:37am Reason for Referral Reason * Waiting for appt Evaluate and Treat Back and Posterior Hip Pain Diagnosis 1 Posterior pain of le ft hip (M25.552) Diagnosis 2 Posterior pain of ri ght hip (M25.551) Diagnosis 3 Low back pain, unspe cified back pain laterality, unspecified chronicity, unspecified whether sciatica present (M54.50) Referral Organization [facility] Referring Provider First Name Ag Referring Provider Last Name Emelina Referring Provider Specialty Neurologica l Surgery Referred Organization [facility] Referred Provider Roger Khalil Referred Address [address] [place],[phone] Referred Provider Specialty Pain Medicin e Referral Priority Routine General Notes Lorelei Tabares 03:52:41 PM >p2p sent Reason 10/27/22 @ 9:[address] to [address] Pierre for Chronic Right Hip Bursitis Diagnosis 1 Ischial bursitis of right side (M70.71) Referral Organization [facility] Referring Provider First Name Joshua Referring Provider Last Name Homero BEJARANO Referring Provider Specialty Orthopedic Surgery Referred Organization Unknown Facility Referred Provider Ti Pierre Referred Provider Specialty Orthopedic S urgery Referral Priority Routine Referral Appointment Date 2022-10-27 General Notes Lorelei Tabares 01:23:57 PM >received today, will fax referral once Dr Valentin's note is locked from todays visit Lorelei Tabares 09/12/2022 09:31:18 AM >office note is now locked, faxing referral at this time. Lorelei Tabares 09/24/2022 10:46:25 AM >called Dr Pierre's office and confirmed patient is scheduled 10/27/22 at 9:10 Chief Complaint and Reason for Visit Chief Complaint enlarged lymph nodes in armpit M25.559 Personal hx colon polyps Chief Complaint Personal hx colon po lyps E78.2 E06.3 R73.01 E55.9 r59.0 Chief Complaint E78.2 E06.3 R73.01 E 55.9 r59.0 Chief Complaint r59.0 M25.551 Ischial bursitits Chief Complaint James only- piraformis syndrome Chief Complaint E06.3 Z79.89 R73.01 E78.2 James only- piraformis syndrome Additional Source Comments INFORMATION SOURCE (unrecogn ized section and content) DATE CREATED AUTHOR 09/20/2018 [facility] DATE CREATED AUTHOR AUTHOR'S ORGANIZ ATION 09/29/2018 [facility] DATE CREATED AUTHOR AUTHOR'S ORGANIZ ATION 04/04/2019 [facility] DATE CREATED AUTHOR AUTHOR'S ORGANIZ ATION 01/08/2020 [facility] DATE CREATED AUTHOR AUTHOR'S ORGANIZ ATION 11/01/2022 [facility] DATE CREATED AUTHOR AUTHOR'S ORGANIZ ATION 02/03/2023 [facility] DATE CREATED AUTHOR AUTHOR'S ORGANIZ ATION 08/06/2023 [facility] REASON FOR VISIT (unrecogniz ed section and content) referred by Dr Letitia Be r RadiculopathyREF BY DR AG MEDEROS FOR LOW BACK AND BILATERAL POSTERIOR HIP PAINPain Medicine Office NotesF/U AFTER PROCEDURERIGHT LUMBAR TRANSFORAMINAL EPIDURAL INJECTION L5 S1 S2/VWReferral updateNEW RT HIP PAIN NX*HOMERO PTRIGHT ISCHIAL BURSA STEROID INJECTION /VWMRI RESULTS Care Teams (unrecognized sec tion and content) Team Status: Inactive Member Role Status Dates Car Dong , DO Primary Care Provider Active Segun Funk , DO Attending Provider Active Team Status: Inactive Member Role Status Dates Car Dong , DO Primary Care Provider Active Roger Khalil MD Attending Provider Active Team Status: Inactive Member Role Status Dates Car Dong , DO Primary Care Provider Active Arnold Hernandez , DO Attending Provider Active Team Status: Active Member Role Status Dates Car Dong , DO Primary Care Provider Active Team Status: Inactive Member Role Status Dates Car Dong , DO Primary Care Provider, Attending Lizzette austin Active Team Status: Inactive Member Role Status Dates Car Dong , DO Primary Care Provider Active Joshua Valentin II, MD Attending Provider Active Team Status: Active Member Role Status Dates Car Dong , DO Primary Care Provider, Attending Lizzette austin Active Goals (unrecognized section and content) Goals may be documented in a n alternate section FOR RECORDS PERTAINING TO PATIENTS WHO ARE OR HAVE BEEN ENROLLED IN A CHEMICAL DEPENDENCY/SUBSTANCEABUSE PROGRAM, SOME INFORMATION MAY BE OMITTED. This clinical summary was aggregated from multiple sources. Caution should be exercised in using it in the provision of clinical care. This summary normalizes information from multiple sources, and as a consequence, information in this document may materially change the coding, format and clinical context of patient data. In addition, data may be omitted in some cases. CLINICAL DECISIONS SHOULD BE BASED ON THE PRIMARY CLINICAL RECORDS. [employer] provides no warranty or guarantee of the accuracy or completeness of information in this document.
[2023-08-31 08:19] VITALS: BP 122/79; PULSE 63; RESP 16; TEMP 36.3; O2SAT 100
[2023-08-31 08:52] VITALS: BP 135/65; PULSE 64; RESP 18; O2SAT 99
[2023-08-31] MEDS: BUPIVACAINE HCL 0.25% PF 25 MG/10 ML VIAL INJ (08:53)
[2023-08-31] MEDS: 0.9 % SODIUM CHLORIDE 10 ML INJ (08:53)
[2023-08-31] MEDS: IOHEXOL 240 MG/ML - 10 ML VIAL INJ (08:53)
[2023-08-31] MEDS: LIDOCAINE HCL 2% PF 100 MG/5 ML VIAL INJ (08:53)
[2023-08-31 08:55] VITALS: BP 133/69; PULSE 64; RESP 18; O2SAT 98
--- NOTE | 2023-08-31 08:58 | P.ON_ITS ---
Date of procedure: 08/31/23 Pre-op diagnosis: Lumbar stenosis with neurogenic claudication Post-op diagnosis: same as pre-op Procedure: Procedure: Right L3-4, L4-5 transforaminal epidural steroid injection Medications: Bupivacaine 0.25% 3cc, dexamethasone 10mg The patient was seen and examined in the preoperative holding area.? Informed consent was obtained and placed on the chart.? Patient was brought to the medical procedure unit and placed in the prone position where a timeout was completed verifying the correct patient, procedure site, position, and planned special equipment using sterile aseptic technique.? Under direct fluoroscopic visualization a 25-gauge Quincke tipped spinal needle was advanced to the designated neural foramen where contrast dye was injected to show adequate spread.? The needle was inserted at level right L3-4. There was no evidence of vascular or adverse uptake.? Epidural spread was appreciated.? The above- mentioned injectate was then placed in a 1.5 mL aliquot preceded by negative aspiration.? The needle was removed. The needle was inserted and the procedure repeated at level right L4-5.? The surgery site was covered.? Patient was taken to the postprocedural recovery area and monitored for an appropriate length of time before found suitable for discharge in the accompaniment of a responsible adult. Anesthesia: Local Surgeon: Sacha Good Pathology: none sent Condition: stable Disposition: no change
[2023-08-31] MEDS: DEXAMETHASONE SOD PHOS 10 MG/ML VIAL INJ (13:18)
== END 2023-08-31 09:02 | disposition home or self-care (01) ==
PROVIDERS: PCP Family Medicine; Visit Provider Anesthesiology
DX: M48.062 Spinal stenosis, lumbar region with neurogenic claudication (principal)
CPT/HCPCS: 64483; 64484; J0665; J1100; Q9966

== ENCOUNTER 2023-09-14 09:40 | Day surgery (SDC) | payer MEDICARE, SELFPAY ==
[2023-09-14 10:10] VITALS: BP 125/73; PULSE 63; RESP 16; TEMP 36.3; O2SAT 97
[2023-09-14 10:49] VITALS: RESP 20
[2023-09-14] MEDS: 0.9 % SODIUM CHLORIDE 10 ML INJ (10:54)
[2023-09-14] MEDS: IOHEXOL 240 MG/ML - 10 ML VIAL INJ (10:54)
[2023-09-14] MEDS: BUPIVACAINE HCL 0.25% PF 25 MG/10 ML VIAL 2 ML INJ (10:54)
--- NOTE | 2023-09-14 10:54 | W.PM.PROCNOT ---
Date of procedure: 09/14/23 Pre-op diagnosis: Sacroiliitis, right Post-op diagnosis: same as pre-op Procedure: Procedure: Right block of the nerve innervating the sacroiliac joint Medications: Bupivacaine 0.25% 3cc, kenalog 40mg After informed consent was obtained, the patient was brought to the medical procedure unit and placed in the prone position, when a timeout was completed verifying correct patient, procedure, site, positioning, implant, and/or special equipment.? The skin overlying the area was prepped and draped in standard sterile fashion using alcohol.? A 25-gauge needle was inserted towards the right nerve innervating the sacroiliac joint under direct fluoroscopic imaging.? Needle tip was advanced until the nerve was encountered.? We instilled a total of 3 mL of solution.? Postoperatively needles were removed.? The patient tolerated the procedure well without complication.? The patient reported reduction in pain symptoms postoperatively. Anesthesia: Local Surgeon: Sacha Good Pathology: none sent Condition: stable Disposition: no change
[2023-09-14] MEDS: TRIAMCINOLONE ACETONIDE 40 MG/ML VIAL INJ (10:55)
[2023-09-14] MEDS: LIDOCAINE HCL 2% PF 100 MG/5 ML VIAL INJ (10:55)
[2023-09-14 10:56] VITALS: BP 143/67; PULSE 72; PULSE 74; O2SAT 95
== END 2023-09-14 10:59 | disposition home or self-care (01) ==
PROVIDERS: PCP Family Medicine; Visit Provider Anesthesiology
DX: M46.1 Sacroiliitis, not elsewhere classified (principal)
CPT/HCPCS: 64451; J0665; J3301; Q9966

== ENCOUNTER 2023-09-24 13:06 | Outpatient (OUT) | payer MEDICARE, SELFPAY ==
--- OUTSIDE RECORDS SUMMARY | 2023-09-24 13:16 | XMS_ITS | CCD ---
Author Name Unknown Address [address] [facility] [address] [place] [address] Organization [facility] Care Team Providers Care Field Recorder Name Role Phone JOSHUA CARY Attending Unavailable [...] Unavailable DO Car Dong Primary Care Provider [phone] DO Arnold Hernandez Attending Provider MD Roger Khalil Attending Provider DO Segun Funk Attending Provider [phone] Bunting, DO Car Primary Care Provider Bunting, DO Car Attending Provider [phone] Itzkowitz, DO Arnold Attending Provider Joshua Valentin II Unavailable Bunting, DO Car Primary Care Provider [phone] Bunting, DO Car Attending Provider Itzkowitz, DO Arnold Attending Provider MD Joshua Valentin II Attending Provider Bunting, DO Car Primary Care Provider TI PIERRE Attending Unavailable Bunting, DO Car Primary Care Provider Bunting, DO Car Attending Provider [phone] Itzkowitz, Arnold Attending Unavailable Itzkowitz, Arnold Admitting Unavailable Bunting, Car Primary Care Unavailable Bunting, Car Admitting Unavailable Bunting, Car Primary Care Unavailable Bunting, Car Attending Unavailable Bunting, Car Attending Unavailable Bunting, Car Admitting Unavailable Bunting, Car Primary Care Unavailable Bunting, Car Attending Unavailable Bunting, Car Admitting Unavailable Bunting, Car Primary Care Unavailable Homero II, Joshua Wells Admitting Unavailabl e Mesa II, oJshua Wells Attending Unavailabl e Bunting, Car Primary Care Unavailable Mesa II, Joshua Wells Admitting Unavailabl e Mesa II, Joshua Wells Attending Unavailabl e Bunting, [...] MARTELL, Sacha Masters Attending Unavailable Florentino MARTELL, Farhanrius Masters Attending Unavailable Florentino MARTELL, Farhanrius Guerrero Attending Unavailable Florentino MARTELL, Sacha Masters Attending [...] spine 3V*on 12-23 XR thoracic spine 3V* [facility] [place] [address] XRay Report Signed Patient: Chiquis Walker MR#: [id number] : 1950 Acct:[id number] Age/Sex: 72 / F ADM Date: 01/14/23 Loc: XD Room: Type: [facility] Attending Dr: Car Dong DO Copies to: [...] Roopa Skinner M.D.01/14/2023 2:24 PM Dictation Location: [facility]-14 Transcribed By: [facility] 01/14/23 142 Dictated By: Roopa Skinner MD 01/14/23 1419 Signed By: 01/14/23 142 Normal [facility] Alanine aminotransferase [En zymatic activity/volume] in Serum or PlasmaOrdered By: Car Bunting on 11-21-2022 ALT [Catalytic activity/Vol] 11 U/L 7-52 [facility] Albumin [Mass/volume] in Ser um or Plasma by Bromocresol green (BCG) dye binding methoOrdered By: Car Bunting on 11-21-2022 Albumin BCG dye [Mass/Vol] 4.4 g/dL 3.5-5.7 [facility] Alkaline phosphatase [Enzyma tic activity/volume] in Serum or PlasmaOrdered By: Car Bunting on 11-21-2022 ALP [Catalytic activity/Vol] 58 U/L 34-104 [facility] Aspartate aminotransferase [ Enzymatic activity/volume] in Serum or PlasmaOrdered By: Car Bunting on 11-21-2022 AST [Catalytic activity/Vol] 15 U/L 13-39 [facility] Bilirubin.total [Mass/volume ] in Serum or PlasmaOrdered By: Car Bunting on 11-21-2022 Bilirubin [Mass/Vol] 0.5 mg/dL 0.3-1.0 [place] Calcium [Mass/volume] in Ser um or PlasmaOrdered By: Car Bunting on 11-21-2022 Calcium [Mass/Vol] 9.8 mg/dL 8.6-10.3 [facility] Carbon dioxide, total [Moles /volume] in Serum or PlasmaOrdered By: Car Bunting on 11-21-2022 CO2 [Moles/Vol] 28.4 mmol/L 21.0-31.0 [facility] Chloride [Moles/volume] in S satish or PlasmaOrdered By: Car Dong on 11-21-2022 Chloride [Moles/Vol] 106 mmol/L 98-107 [place] Cholesterol [Mass/volume] in Serum or PlasmaOrdered By: Car Dong on 11-21-2022 Cholesterol [Mass/Vol] 254 mg/dL 140-200 [facility] Comment on above: Chol less than 200 m g/dl low riskChol 201-239 mg/dl borderline riskChol 240 mg/dl and greater high risk Cholesterol in LDL Calc [Mas s/Vol]Ordered By: Car Dong on 11-21-2022 Cholesterol in LDL [Mass/Vol] 146 mg/dL 0-100 [facility] Comment on above: LDL ATP III CLASSIFI CATIONLDL less than 100 mg/dL OptimalLDL 100-129 mg/dL Near or above optimalLDL 130-159 mg/dL Borderline highLDL 160-189 mg/dL HighLDL greater than 189 mg/dL Very high Cholesterol in VLDL Calc [Ma ss/Vol]Ordered By: Car Dong on 11-21-2022 Cholesterol in VLDL [Mass/Vol] 44 mg/dL [facility] Comprehensive Metabolic Pane grant 11-21-2022 Albumin [Mass/Vol] 4.4 g/dL Normal 3.5-5.7 [facility] Comment on above: Performed By: #### T 4F, TSH3, CMP, LIPID #### [facility] [address] Albumin/Globulin [Mass ratio] 1.9 {ratio} Normal [facility] Comment on above: Performed By: #### T 4F, TSH3, CMP, LIPID #### [facility] [address] ALP [Catalytic activity/Vol] 58 U/L Normal 34-104 [facility] Comment on above: Performed By: #### T 4F, TSH3, CMP, LIPID #### [facility] [address] [place] [address] [place] ALT [Catalytic activity/Vol] 11 U/L Normal 7-52 [facility] Comment on above: Performed By: #### T 4F, TSH3, CMP, LIPID #### [facility] [address] [place] [address] Anion gap [Moles/Vol] 11.6 mmol/L Normal 6.0-15.0 [facility] Comment on above: Performed By: #### T 4F, TSH3, CMP, LIPID #### [address] AST [Catalytic activity/Vol] 15 U/L Normal 13-39 [facility] Comment on above: Performed By: #### T 4F, TSH3, CMP, LIPID #### [address] Bilirubin [Mass/Vol] 0.5 mg/dL Normal 0.3-1.0 [place] Comment on above: Performed By: #### T 4F, TSH3, CMP, LIPID #### [address] Calcium [Mass/Vol] 9.8 mg/dL Normal 8.6-10.3 [facility] Comment on above: Performed By: #### T 4F, TSH3, CMP, LIPID #### [address] Chloride [Moles/Vol] 106 mmol/L Normal 98-107 [place] Comment on above: Performed By: #### T 4F, TSH3, CMP, LIPID #### [address] CO2 [Moles/Vol] 28.4 mmol/L Normal 21.0-31.0 [facility] Comment on above: Performed By: #### T 4F, TSH3, CMP, LIPID #### [address] Creatinine [Mass/Vol] 0.89 mg/dL Normal 0.60-1.20 [facility] Comment on above: Performed By: #### T 4F, TSH3, CMP, LIPID #### [address] [place] [address] [place] GFR/1.73 sq M.predicted MDRD (S/P/Bld) [Vol rate/Area] mL/min/{1.73_m2} Normal [facility] Comment on above: Performed By: #### T 4F, TSH3, CMP, LIPID #### [facility] [address] [place] [address] [place] Globulin (S) [Mass/Vol] 2.3 g/dL Normal [facility] Comment on above: Performed By: #### T 4F, TSH3, CMP, LIPID #### [facility] [address] Glucose [Mass/Vol] 77 mg/dL Normal 70-100 [facility] Comment on above: Result Comment: [facility] Glucose Reference Range is dependent on time and content of last meal. Glucose of more than 200 mg/dL in a nonstressed, ambulatory subject supports the diagnosis of Diabetes Mellitus. ADA recommended reference range Performed By: #### T 4F, TSH3, CMP, LIPID #### [facility] [address] Potassium [Moles/Vol] 4.0 mmol/L Normal 3.5-5.1 [facility] Comment on above: Performed By: #### T 4F, TSH3, CMP, LIPID #### [facility] [address] [place] [address] [place] Protein [Mass/Vol] 6.7 g/dL Normal 6.4-8.9 [facility] Comment on above: Performed By: #### T 4F, TSH3, CMP, LIPID #### [facility] [address] [place] [address] [place] Sodium [Moles/Vol] 142 mmol/L Normal 136-145 [facility] Comment on above: Performed By: #### T 4F, TSH3, CMP, LIPID #### [facility] [address] [place] [address] [place] Urea nitrogen [Mass/Vol] 11 mg/dL Normal 7-25 [facility] Comment on above: Performed By: #### T 4F, TSH3, CMP, LIPID #### [facility] [address] [place] [address] [place] Creatinine [Mass/volume] in Serum or PlasmaOrdered By: Car Dong on 11-21-2022 Creatinine [Mass/Vol] 0.89 mg/dL 0.60-1.20 [facility] Free T4 (Free Thyroxine)on 0 11-21-2022 Free T4 [Mass/Vol] 1.35 ng/dL High 0.61-1.12 [facility] Comment on above: Performed By: #### T 4F, TSH3, CMP, LIPID #### [facility] [address] [place] [address] [facility] Globulin Calc (S) [Mass/Vol] Ordered By: Car Dong on 11-21-2022 Globulin (S) [Mass/Vol] 2.3 g/dL [facility] Glucose [Mass/volume] in Ser um or PlasmaOrdered By: Car Dong on 11-21-2022 Glucose [Mass/Vol] 77 mg/dL 70-100 [facility] Comment on above: ADA recommended refe rence rangeRandom Glucose Reference Range is dependent on time and content of last meal. Glucose of more than 200 mg/dL in a nonstressed, ambulatory subject supports the diagnosis of Diabetes Mellitus. Lipid Panelon 11-21-2022 Cholesterol [Mass/Vol] 254 mg/dL High 140-200 [facility] Comment on above: Result Comment: Chol less than 200 mg/dl low risk Chol 201-239 mg/dl borderline risk Chol 240 mg/dl and greater high risk Performed By: #### T 4F, TSH3, CMP, LIPID #### [facility] [address] [place] [address] [place] Cholesterol in HDL [Mass/Vol] 63 mg/dL Normal 35-85 [facility] Comment on above: Result Comment: HDL CHOL ATP-III CLASSIFICATION Cardiovascular Risk HDL > or equal to 60 mg/dL LOW HDL < 40 mg/dL HIGH Performed By: #### T 4F, TSH3, CMP, LIPID #### [facility] [address] [place] [address] [facility] Cholesterol.total/Gia sterol in HDL [Mass ratio] 4.0 {ratio} Normal <5.0 [facility] Comment on above: Performed By: #### T 4F, TSH3, CMP, LIPID #### [facility] [address] LDL Cholesterol,Calculated 146 mg/dL High 0-100 [facility] Comment on above: Result Comment: LDL ATP III CLASSIFICATION LDL less than 100 mg/dL Optimal LDL 100-129 mg/dL Near or above optimal LDL 130-159 mg/dL Borderline high LDL 160-189 mg/dL High LDL greater than 189 mg/dL Very high Performed By: #### T 4F, TSH3, CMP, LIPID #### [facility] [address] Triglyceride w/Reflex 224 mg/dL High 0-149 [facility] Comment on above: Result Comment: TRIG ATP III CLASSIFICATION TRIG less than 150 mg/dL Normal TRIG 150-199 mg/dL Borderline high TRIG 200-500 mg/dL High TRIG greater than 500 mg/dL Very high Standard traceable to the Center for Disease Conrtrol and Prevention (CDC) test method. Performed By: #### T 4F, TSH3, CMP, LIPID #### [facility] [address] VLDL CHOLESTEROL 44 mg/dL Normal [facility] Comment on above: Performed By: #### T 4F, TSH3, CMP, LIPID #### [facility] [address] No Panel InformationOrdered By: Car Bunting on 11-21-2022 Estimated GFR (CKD-EPI) > 60.0 mL/Min [facility] Creatinine Clearance (Chem N/A [facility] Potassium [Moles/volume] in Serum or PlasmaOrdered By: Car Bunting on 11-21-2022 Potassium [Moles/Vol] 4.0 mmol/L 3.5-5.1 [facility] Protein [Mass/volume] in Ser um or PlasmaOrdered By: Car Bunting on 11-21-2022 Protein [Mass/Vol] 6.7 g/dL 6.4-8.9 [facility] Serum or plasma albumin/glob ulin mass ratioOrdered By: Car Bunkenji on 11-21-2022 Albumin/Globulin [Mass ratio] 1.9 {ratio} [facility] Serum or plasma anion gap de terminationOrdered By: Car Bunting on 11-21-2022 Anion gap [Moles/Vol] 11.6 mmol/L 6.0-15.0 [facility] Serum or plasma high density lipoprotein (HDL) cholesterol measurementOrdered By: Car Bunting on 11-21-2022 Cholesterol in HDL [Mass/Vol] 63 mg/dL 35-85 [facility] Comment on above: HDL CHOL ATP-III CLA SSIFICATION Cardiovascular RiskHDL > or equal to 60 mg/dL LOWHDL < 40 mg/dL HIGH Serum or plasma total choles terol/high density lipoprotein (HDL) cholesterol mass ratOrdered By: Car Bunkenji on 11-21-2022 Cholesterol.total/Gia sterol in HDL [Mass ratio] 4.0 {ratio} <5.0 [facility] Sodium [Moles/volume] in Ser um or PlasmaOrdered By: Car Bunkenji on 11-21-2022 Sodium [Moles/Vol] 142 mmol/L 136-145 [facility] Thyroid Stimulating Hormoneo n 11-21-2022 TSH Qn 8.21 m[IU]/L High 0.45-5.33 [facility] Comment on above: Result Comment: PERF ORMED BY: [place] [address] PATHOLOGIST ENVIRONMENTAL CONTROL ADMINISTRATOR MADIHA HAILE M.D. Performed By: #### T 4F, TSH3, CMP, LIPID #### [facility] [address] Thyrotropin [Units/volume] i n Serum or PlasmaOrdered By: Car Bunkenji on 11-21-2022 TSH Qn 8.21 m[IU]/L 0.45-5.33 [facility] Thyroxine (T4) free [Mass/vo lume] in Serum or PlasmaOrdered By: Car Bunting on 11-21-2022 Free T4 [Mass/Vol] 1.35 ng/dL 0.61-1.12 [facility] Triglyceride [Mass/volume] i n Serum or PlasmaOrdered By: Car Dong on 11-21-2022 Triglyceride [Mass/Vol] 224 mg/dL 0-149 [facility] Comment on above: TRIG ATP III CLASSIF ICATIONTRIG less than 150 mg/dL NormalTRIG 150-199 mg/dL Borderline highTRIG 200-500 mg/dL High TRIG greater than 500 mg/dL Very highStandard traceable to the Center for Disease Conrtrol and Prevention (CDC) test method. Urea nitrogen [Mass/volume] in Serum or PlasmaOrdered By: Car Dong on 11-21-2022 Urea nitrogen [Mass/Vol] 11 mg/dL 7 [facility] Consulton 10-27-2022 Consult [id number] Chiquis Walker 1950 F Date Provider Department Center 10/27/2022 TI LIM MP ORTHO MPORTHO No family history on file Level of Service:37562 [place] OFFICE/OUTPATIENT NEW MODERATE MDM 45-59 MINUTES Reason for Visit and Comments: Pain [136] Normal [facility] MR hip RT wo conon 2 MR hip RT wo con [facility] Main [place] [address] [place] [address] MRI Report Signed Patient: Chiquis Walker MR#: [id number] : 1950 Acct:[id number] Age/Sex: 72 / F ADM Date: 08/22/22 Loc: [facility] Room: Type: [facility] Attending Dr: Joshua Valentin II, MD Copies [...] Stephan Bowie M.D.08/22/2022 3:21 PM Dictation Location: [place] [address] Transcribed By: [facility] 08/22/22 152 Dictated By: Stephan Bowie DO 08/22/22 1449 Signed By: 08/22/22 152 [facility] XR hip RT min 2V(w/wo pelvis )*on 07-02-2022 XR hip RT min 2V(w/wo pelvis)* [facility] [address] [place] [address] [place] [address] XRay Report Signed Patient: Chiquis Walker MR#: [id number] : 1950 Acct:[id number] Age/Sex: 72 / F ADM Date: 07/02/22 Loc: [facility] Room: Type: [facility] Attending Dr: Joshua Valentin II, MD Copies [...] Stephan Bowie M.D.07/02/2022 4:50 PM Dictation Location: [place] [address] Transcribed By: [facility] 07/02/221649 Dictated By: Stephan Bowie DO 07/02/221649 Signed By: 11/09/22 1650 [facility] XR hip RT min 2V(w/wo pelvis)* [facility] [employer] Other XR hip RT min 2V(w/wo pelvis)* [facility] [place] [employer] Other XR hip RT min 2V(w/wo pelvis)* [address] [facility] [employer] Other XR hip RT min 2V(w/wo pelvis)* Janel JOSE [address] [employer] Other XR hip RT min 2V(w/wo pelvis)* XRay Report [employer] Other XR hip RT min 2V(w/wo pelvis)* Signed [employer] Other XR hip RT min 2V(w/wo pelvis)* Patient: Chiquis Walker MR#: [id number] [employer] Other XR hip RT min 2V(w/wo pelvis)* 6660 [employer] Other XR hip RT min 2V(w/wo pelvis)* : 1950 Acct:[id number] [employer] Other XR hip RT min 2V(w/wo pelvis)* Age/Sex: 72 / F ADM Date: 07/02/22 [employer] Other XR hip RT min 2V(w/wo pelvis)* Loc: [facility] Room: Type: [facility] [employer] Other XR hip RT min 2V(w/wo pelvis)* Attending Dr: Joshua Valentin II, MD [employer] Other XR hip RT min 2V(w/wo pelvis)* Copies to: Joshua Valentin MD [employer] Other XR hip RT min 2V(w/wo pelvis)* Ordering Provider: Joshua Valentin MD [employer] Other XR hip RT min 2V(w/wo pelvis)* Date of Service: 07/02/22 [employer] Other XR hip RT min 2V(w/wo pelvis)* XR/XR hip RT min 2V(w/wo pelvis)*: Right hip pain [employer] Other XR hip RT min 2V(w/wo pelvis)* 2 views the RIGHT hip single view pelvisplain film [employer] Other XR hip RT min 2V(w/wo pelvis)* COMPARISON:None [employer] Other XR hip RT min 2V(w/wo pelvis)* HISTORY:RIGHT hip pain for months [employer] Other XR hip RT min 2V(w/wo pelvis)* No fracture, dislocation or focal soft tissue abnormality seen.No significant degeneration. [employer] Other XR hip RT min 2V(w/wo pelvis)* Articular surfaces preserved. [employer] Other XR hip RT min 2V(w/wo pelvis)* XR/XR hip RT min 2V(w/wo pelvis)* [employer] Other XR hip RT min 2V(w/wo pelvis)* IMPRESSION:Unremarka ble exam [employer] Other XR hip RT min 2V(w/wo pelvis)* Impression dictated by: Stephan Bowie M.D.07/02/2022 4:50 PM [employer] Other XR hip RT min 2V(w/wo pelvis)* Dictation Location: [place] [address] [employer] Other XR hip RT min 2V(w/wo pelvis)* Transcribed By: BIBI 07/02/22 [facility] [employer] Other XR hip RT min 2V(w/wo pelvis)* Dictated By: Stephan Bowie DO 07/02/22 1650 [employer] Other XR hip RT min 2V(w/wo pelvis)* Signed By: [employer] Other XR hip RT min 2V(w/wo pelvis)* 07/02/22 1659 [employer] Other US breast LT limitedon 06-02 US breast LT limited [facility] Main [place] [address] [place] [address] Mammography Report Signed Patient: Chiquis Walker MR#: [id number] : 1950 Acct:[id number] Age/Sex: 72 / F ADM Date: 06/02/22 Loc: [place] Room: Type: [facility] Attending Dr: Arnold Hernandez DO Copies to: DO Arnold Nieto DO Ordering Provider: Arnold Hernandez DO Date of Service: 06/02/22 MM/MM diagnostic mammo BI w/CAD: Yrly mamms;Enlarged lymph nodes in armpit ([id number]) US/US breast LT limited: . CLINICAL DATA: [...] Roopa Skinner M.D.06/02/2022 4:24 PM Dictation Location: [facility] Transcribed By: [facility] 06/02/22 162 Dictated By: Roopa Skinner MD 06/02/22 1506 Signed By: 06/02/22 1624 [facility] A1C with Estimated Average G esther 04-29-2022 Glucose [Mass/Vol] 108 mg/dL Normal [facility] Comment on above: Result Comment: PERF ORMED BY: [facility] [address] [facility] [place] [address] PATHOLOGIST ENVIRONMENTAL CONTROL ADMINISTRATOR MADIHA HAILE M.D. Performed By: #### T 4F, TSH3, A1C WTH eA, CBC, CMP, LIPID, [id number] ####[place] [address] [place] [id number] [facility] HbA1c (Bld) [Mass fraction] 5.4 % Normal 4.3-5.6 [facility] Comment on above: Result Comment: Incr eased risk for diabetes: 5.7 - 6.4 diabetes: >6.4 glycemic control for adults with diabetes: <7.0 Performed By: #### T 4F, TSH3, A1C WTH eA, CBC, CMP, LIPID, [id number] ####[place] [address] [place] [id number] [facility] Basophils Auto (Bld) [#/Vol] Ordered By: Car Dong on 04-29-2022 Basophils (Bld) [#/Vol] 0.0 10*3/uL 0.0-0.2 [facility] Basophils/100 WBC Auto (Bld) Ordered By: Car Dong on 04-29-2022 Basophils/100 WBC (Bld) 0.9 % . [facility] Blood hemoglobin measurement (mass/volume)Ordered By: Car Dong on 04-29-2022 Hemoglobin (Bld) [Mass/Vol] 12.9 g/dL 11.8-15.4 [facility] Blood leukocytes automated c ount (number/volume)Ordered By: Car Dong on 04-29-2022 WBC (Bld) [#/Vol] 5.4 10*3/uL 4.5-11.0 [facility] Body fluid albumin measureme nt (mass/volume)Ordered By: Car Dong on 04-29-2022 Albumin (Body fld) [Mass/Vol] 3.5 g/dL 3.2-5.5 [facility] Cholesterol [Mass/volume] in Serum or PlasmaOrdered By: Car Dong on 04-29-2022 Cholesterol [Mass/Vol] 206 mg/dL 140-200 [facility] Comment on above: Chol less than 200 m g/dl low riskChol 201-239 mg/dl borderline riskChol 240 mg/dl and greater high risk Cholesterol in LDL Calc [Mas s/Vol]Ordered By: Car Dong on 04-29-2022 Cholesterol in LDL [Mass/Vol] 113 mg/dL 0-100 [facility] Comment on above: LDL ATP III CLASSIFI CATIONLDL less than 100 mg/dL OptimalLDL 100-129 mg/dL Near or above optimalLDL 130-159 mg/dL Borderline highLDL 160-189 mg/dL HighLDL greater than 189 mg/dL Very high Cholesterol in VLDL Calc [Ma ss/Vol]Ordered By: Car Dong on 04-29-2022 Cholesterol in VLDL [Mass/Vol] 29 mg/dL [facility] Complete Blood Count Auto Di ffon 04-29-2022 Basophils (Bld) [#/Vol] 0.0 10*3/uL Normal 0.0-0.2 [facility] Comment on above: Result Comment: PERF ORMED BY: [facility] [address] [place] [address] PATHOLOGIST ENVIRONMENTAL CONTROL ADMINISTRATOR MADIHA HAILE M.D. Performed By: #### T 4F, TSH3, A1C WTH eA, CBC, CMP, LIPID, [id number] #### [facility] [address] Basophils/100 WBC (Bld) 0.9 % Normal . [facility] Comment on above: Performed By: #### T 4F, TSH3, A1C WTH eA, CBC, CMP, LIPID, [id number] #### [address] Eosinophils (Bld) [#/Vol] 0.1 10*3/uL Normal 0.0-0.45 [facility] Comment on above: Performed By: #### T 4F, TSH3, A1C WTH eA, CBC, CMP, LIPID, [id number] #### [address] Eosinophils/100 WBC (Bld) 2.7 % Normal . [facility] Comment on above: Performed By: #### T 4F, TSH3, A1C WTH eA, CBC, CMP, LIPID, [id number] #### [address] Erythrocyte distribution width (RBC) [Ratio] 14.2 % Normal 11.9-15.3 [facility] Comment on above: Performed By: #### T 4F, TSH3, A1C WTH eA, CBC, CMP, LIPID, [id number] #### [address] Hematocrit (Bld) [Volume fraction] 37.2 % Normal 34.0-46.4 [facility] Comment on above: Performed By: #### T 4F, TSH3, A1C WTH eA, CBC, CMP, LIPID, [id number] #### [address] Hemoglobin (Bld) [Mass/Vol] 12.9 g/dL Normal 11.8-15.4 [facility] Comment on above: Performed By: #### T 4F, TSH3, A1C WTH eA, CBC, CMP, LIPID, [id number] #### [facility] [address] Lymphocytes (Bld) [#/Vol] 2.3 10*3/uL Normal 1.00-4.8 [facility] Comment on above: Performed By: #### T 4F, TSH3, A1C WTH eA, CBC, CMP, LIPID, [id number] #### [address] Lymphocytes/100 WBC (Bld) 42.7 % Normal . [facility] Comment on above: Performed By: #### T 4F, TSH3, A1C WTH eA, CBC, CMP, LIPID, [id number] #### [address] [facility] (RBC) [Entitic mass] 34.0 pg Normal 24.7-34.3 [facility] Comment on above: Performed By: #### T 4F, TSH3, A1C WTH eA, CBC, CMP, LIPID, [id number] #### [address] MCV (RBC) [Entitic vol] 98.3 fL Normal 80-100 [facility] Comment on above: Performed By: #### T 4F, TSH3, A1C WTH eA, CBC, CMP, LIPID, [id number] #### [address] Mean Corpuscular HGB Conc 34.6 g/dL Normal 32.0-35.0 [facility] Comment on above: Performed By: #### T 4F, TSH3, A1C WTH eA, CBC, CMP, LIPID, [id number] #### [address] Monocytes (Bld) [#/Vol] 0.6 10*3/uL Normal 0.0-0.8 [facility] Comment on above: Performed By: #### T 4F, TSH3, A1C WTH eA, CBC, CMP, LIPID, [id number] #### [place] [address] [place] Monocytes/100 WBC (Bld) 11.4 % Normal . [facility] Comment on above: Performed By: #### T 4F, TSH3, A1C WTH eA, CBC, CMP, LIPID, [id number] #### [facility] [address] [place] [address] [place] Neutrophils (Bld) [#/Vol] 2.3 10*3/uL Normal 1.8-7.7 [facility] Comment on above: Performed By: #### T 4F, TSH3, A1C WTH eA, CBC, CMP, LIPID, [id number] #### [facility] [address] Neutrophils/100 WBC (Bld) 42.3 % Normal . [facility] Comment on above: Performed By: #### T 4F, TSH3, A1C WTH eA, CBC, CMP, LIPID, [id number] #### [facility] [address] [place] [address] [place] Nucleated RBC/100 WBC (Bld) [Ratio] 0.1 % Normal 0-0.5 [facility] Comment on above: Performed By: #### T 4F, TSH3, A1C WTH eA, CBC, CMP, LIPID, [id number] #### [facility] [address] [place] [address] [place] Platelet mean volume (Bld) [Entitic vol] 9.0 fL Normal 6.3-10.7 [facility] Comment on above: Performed By: #### T 4F, TSH3, A1C WTH eA, CBC, CMP, LIPID, [id number] #### [facility] [address] [place] [address] [place] Platelets (Bld) [#/Vol] 234 10*3/uL Normal 150-450 [facility] Comment on above: Performed By: #### T 4F, TSH3, A1C WTH eA, CBC, CMP, LIPID, [id number] #### [facility] [address] [place] [address] [place] RBC (Bld) [#/Vol] 3.79 10*6/uL Normal 3.60-5.00 [facility] Comment on above: Performed By: #### T 4F, TSH3, A1C WTH eA, CBC, CMP, LIPID, [id number] #### [address] WBC (Bld) [#/Vol] 5.4 10*3/uL Normal 4.5-11.0 [facility] Comment on above: Performed By: #### T 4F, TSH3, A1C WTH eA, CBC, CMP, LIPID, [id number] #### [address] Comprehensive Metabolic Pane grant 04-29-2022 Albumin [Mass/Vol] 3.5 g/dL Normal 3.2-5.5 [facility] Comment on above: Performed By: #### T 4F, TSH3, A1C WTH eA, CBC, CMP, LIPID, [id number] #### [address] Albumin/Globulin [Mass ratio] 1.5 {ratio} Normal [facility] Comment on above: Performed By: #### T 4F, TSH3, A1C WTH eA, CBC, CMP, LIPID, [id number] #### [address] ALP [Catalytic activity/Vol] 62 U/L Normal 32-92 [facility] Comment on above: Performed By: #### T 4F, TSH3, A1C WTH eA, CBC, CMP, LIPID, [id number] #### [address] ALT [Catalytic activity/Vol] 17 U/L Normal 10-60 [facility] Comment on above: Performed By: #### T 4F, TSH3, A1C WTH eA, CBC, CMP, LIPID, [id number] #### [address] Anion gap [Moles/Vol] 16.5 mmol/L High 6.0-15.0 [facility] Comment on above: Performed By: #### T 4F, TSH3, A1C WTH eA, CBC, CMP, LIPID, [id number] #### [facility] [address] AST [Catalytic activity/Vol] 21 U/L Normal 10-42 [facility] Comment on above: Performed By: #### T 4F, TSH3, A1C WTH eA, CBC, CMP, LIPID, [id number] #### [facility] [address] Bilirubin [Mass/Vol] 0.7 mg/dL Normal 0.3-1.2 [place] Comment on above: Performed By: #### T 4F, TSH3, A1C WTH eA, CBC, CMP, LIPID, [id number] #### [facility] [address] Calcium [Mass/Vol] 9.8 mg/dL Normal 8.2-10.2 [facility] Comment on above: Performed By: #### T 4F, TSH3, A1C WTH eA, CBC, CMP, LIPID, [id number] #### [facility] [address] Chloride [Moles/Vol] 104 mmol/L Normal 95-114 [place] Comment on above: Performed By: #### T 4F, TSH3, A1C WTH eA, CBC, CMP, LIPID, [id number] #### [facility] [address] CO2 [Moles/Vol] 24.5 mmol/L Normal 22.0-30.0 [facility] Comment on above: Performed By: #### T 4F, TSH3, A1C WTH eA, CBC, CMP, LIPID, [id number] #### [facility] [address] Creatinine [Mass/Vol] 0.90 mg/dL Normal 0.44-1.03 [facility] Comment on above: Performed By: #### T 4F, TSH3, A1C WTH eA, CBC, CMP, LIPID, [id number] #### [facility] [address] [place] [address] [place] Estimated GFR ( Faith > 60 Normal [facility] Comment on above: Result Comment: GFR estimated reference range: According to KDOQI guidelines, <60 ml/min/1.73m2 is sufficient to diagnose a patient with chronic kidney disease. Performed By: #### T 4F, TSH3, A1C WTH eA, CBC, CMP, LIPID, [id number] #### [facility] [address] Estimated GFR (Non- Am > 60 [facility] Comment on above: Performed By: #### T 4F, TSH3, A1C WTH eA, CBC, CMP, LIPID, [id number] #### [facility] [address] Globulin (S) [Mass/Vol] 2.3 g/dL Normal [facility] Comment on above: Performed By: #### T 4F, TSH3, A1C WTH eA, CBC, CMP, LIPID, [id number] #### [facility] [address] Glucose [Mass/Vol] 80 mg/dL Normal 70-100 [facility] Comment on above: Result Comment: [place] Glucose Reference Range is dependent on time and content of last meal. Glucose of more than 200 mg/dL in a nonstressed, ambulatory subject supports the diagnosis of Diabetes Mellitus. ADA recommended reference range Performed By: #### T 4F, TSH3, A1C WTH eA, CBC, CMP, LIPID, [id number] #### [facility] [address] Potassium [Moles/Vol] 4.0 mmol/L Normal 3.5-5.1 [facility] Comment on above: Performed By: #### T 4F, TSH3, A1C WTH eA, CBC, CMP, LIPID, [id number] #### [facility] [address] Protein [Mass/Vol] 5.8 g/dL Low 6.1-7.9 [facility] Comment on above: Performed By: #### T 4F, TSH3, A1C WTH eA, CBC, CMP, LIPID, [id number] #### [facility] [address] [place] [id number] [place] Sodium [Moles/Vol] 141 mmol/L Normal 136-146 [facility] Comment on above: Performed By: #### T 4F, TSH3, A1C WTH eA, CBC, CMP, LIPID, [id number] #### [facility] [address] [place] [id number] [place] Urea nitrogen [Mass/Vol] 5 mg/dL Low - [facility] Comment on above: Performed By: #### T 4F, TSH3, A1C WTH eA, CBC, CMP, LIPID, [id number] #### [facility] [address] [place] [address] [place] Creatinine and Glomerular fi ltration rate.predicted panel (S/P/Bld)Ordered By: Car Bunting on 04-29-2022 Creatinine [Mass/Vol] 0.90 mg/dL 0.44-1.03 [facility] Eosinophils Auto (Bld) [#/Vo l]Ordered By: Car Bunting on 04-29-2022 Eosinophils (Bld) [#/Vol] 0.1 10*3/uL 0.0-0.45 [facility] Eosinophils/100 WBC Auto (Bl d)Ordered By: Car Bunting on 04-29-2022 Eosinophils/100 WBC (Bld) 2.7 % . [facility] Erythrocyte distribution wid th Auto (RBC) [Ratio]Ordered By: Car Bunting on 04-29-2022 Erythrocyte distribution width (RBC) [Ratio] 14.2 % 11.9-15.3 [facility] Estimated glomerular filtrat ion rate (GFR) non- AmericanOrdered By: Car Bunting on 04-29-2022 GFR/1.73 sq M.predicted among non-blacks MDRD (S/P/Bld) [Vol rate/Area] > 60 mL/Min [facility] Free T4 (Free Thyroxine)on 0 04-29-2022 Free T4 [Mass/Vol] 0.72 ng/dL Normal 0.61-1.12 [facility] Comment on above: Performed By: #### T 4F, TSH3, A1C WTH eA, CBC, CMP, LIPID, [id number] ####[facility] [id number] Globulin Calc (S) [Mass/Vol] Ordered By: Car Dong on 04-29-2022 Globulin (S) [Mass/Vol] 2.3 g/dL [facility] Glucose mean value [Mass/vol ume] in Blood Estimated from glycated hemoglobinOrdered By: Car Dong on 04-29-2022 Average glucose Estimated from glycated hemoglobin (Bld) [Mass/Vol] 108 mg/dL [facility] Hematocrit Auto (Bld) [Volum e fraction]Ordered By: Car Dong on 04-29-2022 Hematocrit (Bld) [Volume fraction] 37.2 % 34.0-46.4 [facility] Hemoglobin A1c percentageOrd ered By: Car Dong on 04-29-2022 HbA1c (Bld) [Mass fraction] 5.4 % 4.3-5.6 [facility] Comment on above: Increased risk for d iabetes: 5.7 - 6.4diabetes: >6.4glycemic control for adults with diabetes: <7.0 Laboratory - Hematology and Cell countsOrdered By: Car Dong on 04-29-2022 Nucleated RBC/100 WBC (Bld) [Ratio] 0.1 % 0-0.5 [facility] Lipid Panelon 04-29-2022 Cholesterol [Mass/Vol] 206 mg/dL High 140-200 [facility] Comment on above: Result Comment: Chol less than 200 mg/dl low risk Chol 201-239 mg/dl borderline risk Chol 240 mg/dl and greater high risk Performed By: #### T 4F, TSH3, A1C WTH eA, CBC, CMP, LIPID, [id number] #### [facility] [address] Cholesterol in HDL [Mass/Vol] 64 mg/dL Normal 35-85 [facility] Comment on above: Result Comment: HDL CHOL ATP-III CLASSIFICATION Cardiovascular Risk HDL > or equal to 60 mg/dL LOW HDL < 40 mg/dL HIGH Performed By: #### T 4F, TSH3, A1C WTH eA, CBC, CMP, LIPID, [id number] #### [facility] [address] Cholesterol.total/Gia sterol in HDL [Mass ratio] 3.2 {ratio} Normal <5.0 [facility] Comment on above: Performed By: #### T 4F, TSH3, A1C WTH eA, CBC, CMP, LIPID, [id number] #### [facility] [address] LDL Cholesterol,Calculated 113 mg/dL High 0-100 [facility] Comment on above: Result Comment: LDL ATP III CLASSIFICATION LDL less than 100 mg/dL Optimal LDL 100-129 mg/dL Near or above optimal LDL 130-159 mg/dL Borderline high LDL 160-189 mg/dL High LDL greater than 189 mg/dL Very high Performed By: #### T 4F, TSH3, A1C WTH eA, CBC, CMP, LIPID, [id number] #### [facility] [address] Triglyceride w/Reflex 145 mg/dL Normal 35-149 [facility] Comment on above: Result Comment: TRIG ATP III CLASSIFICATION TRIG less than 150 mg/dL Normal TRIG 150-199 mg/dL Borderline high TRIG 200-500 mg/dL High TRIG greater than 500 mg/dL Very high Standard traceable to the Center for Disease Conrtrol and Prevention (CDC) test method. Performed By: #### T 4F, TSH3, A1C WTH eA, CBC, CMP, LIPID, [id number] #### [facility] [address] VLDL CHOLESTEROL 29 mg/dL Normal [facility] Comment on above: Performed By: #### T 4F, TSH3, A1C WTH eA, CBC, CMP, LIPID, [id number] #### [facility] [address] Lymphocytes Auto (Bld) [#/Vo l]Ordered By: Car Dong on 04-29-2022 Lymphocytes (Bld) [#/Vol] 2.3 10*3/uL 1.00-4.8 [facility] Lymphocytes/100 WBC Auto (Bl d)Ordered By: Car Dong on 04-29-2022 Lymphocytes/100 WBC (Bld) 42.7 % . [facility] MCH Auto (RBC) [Entitic mass ]Ordered By: Car Bunting on 04-29-2022 MCH (RBC) [Entitic mass] 34.0 pg 24.7-34.3 [facility] MCHC Auto (RBC) [Mass/Vol]Or dered By: Car Bunting on 04-29-2022 MCHC (RBC) [Mass/Vol] 34.6 g/dL 32.0-35.0 Fir [facility] MCV Auto (RBC) [Entitic vol] Ordered By: Car Bunting on 04-29-2022 MCV (RBC) [Entitic vol] 98.3 fL 80-100 [facility] Monocytes Auto (Bld) [#/Vol] Ordered By: Car Bunting on 04-29-2022 Monocytes (Bld) [#/Vol] 0.6 10*3/uL 0.0-0.8 [facility] Monocytes/100 WBC Auto (Bld) Ordered By: Car Bunting on 04-29-2022 Monocytes/100 WBC (Bld) 11.4 % . [facility] Neutrophils Auto (Bld) [#/Vo l]Ordered By: Car Bunting on 04-29-2022 Neutrophils (Bld) [#/Vol] 2.3 10*3/uL 1.8-7.7 [facility] Neutrophils/100 WBC Auto (Bl d)Ordered By: Car Bunting on 04-29-2022 Neutrophils/100 WBC (Bld) 42.3 % . [facility] No Panel InformationOrdered By: Car Bunting on 04-29-2022 25-Hydroxy Vitamin D Total 34.9 ng/mL 30-100 [facility] Comment on above: VITAMIN D STATUS 25( [place])VITAMIN D RANGE (ng/mL) Deficient <20 Insufficient 20 to <30Sufficient 30 to 100Reference: Shira GRAHAM,Meeta NGO, Nevaeh TONG, et al. Evaluation,treatment, and prevention of vitamin D deficiency; an Endocrine Society clinical practice guideline. JCEM. 2010; 96(7):1911-30. Estimated GFR () > 60 mL/Min [facility] Comment on above: GFR estimated refere nce range: According to KDOQI guidelines, <60 ml/min/1.73m2 is sufficient to diagnose a patient with chronic kidney disease. Pharmacy Creatinine Clearance (Chem N/A [facility] Platelet mean volume Auto (B ld) [Entitic vol]Ordered By: Car Bunting on 04-29-2022 Platelet mean volume (Bld) [Entitic vol] 9.0 fL 6.3-10.7 [facility] Platelets Auto (Bld) [#/Vol] Ordered By: Car Bunting on 04-29-2022 Platelets (Bld) [#/Vol] 234 10*3/uL 150-450 [facility] Protein [Mass/volume] in Ser um or PlasmaOrdered By: Acr Bunting on 04-29-2022 Protein [Mass/Vol] 5.8 g/dL 6.1-7.9 [facility] RBC Auto (Bld) [#/Vol]Ordere d By: Car Bunting on 04-29-2022 RBC (Bld) [#/Vol] 3.79 10*6/uL 3.60-5.00 [facility] Serum or plasma alanine ortiz otransferase measurement without P-5'-P (enzymatic activiOrdered By: Car Bunting on 04-29-2022 ALT No additional P-5'-P [Catalytic activity/Vol] 17 U/L 10-60 [facility] Serum or plasma albumin/glob ulin mass ratioOrdered By: Car Bunting on 04-29-2022 Albumin/Globulin [Mass ratio] 1.5 {ratio} [facility] Serum or plasma alkaline pina sphatase measurement (enzymatic activity/volume)Ordered By: Car Bunting on 04-29-2022 ALP [Catalytic activity/Vol] 62 U/L 32-92 [facility] Serum or plasma anion gap de terminationOrdered By: Car Bunting on 04-29-2022 Anion gap [Moles/Vol] 16.5 mmol/L 6.0-15.0 [facility] Serum or plasma aspartate am inotransferase measurement (enzymatic activity/volume)Ordered By: Car Dong on 04-29-2022 AST [Catalytic activity/Vol] 21 U/L 10-42 [facility] Serum or plasma calcium sudha urement (mass/volume)Ordered By: Car Bunkenji on 04-29-2022 Calcium [Mass/Vol] 9.8 mg/dL 8.2-10.2 [facility] Serum or plasma chloride roberto surement (moles/volume)Ordered By: Car Bunkenji on 04-29-2022 Chloride [Moles/Vol] 104 mmol/L 95-114 [place] Serum or plasma glucose sudha urement (mass/volume)Ordered By: Car Bunkenji on 04-29-2022 Glucose [Mass/Vol] 80 mg/dL 70-100 [facility] Comment on above: ADA recommended refe rence rangeRandom Glucose Reference Range is dependent on time and content of last meal. Glucose of more than 200 mg/dL in a nonstressed, ambulatory subject supports the diagnosis of Diabetes Mellitus. Serum or plasma high density lipoprotein (HDL) cholesterol measurementOrdered By: Car Dong on 04-29-2022 Cholesterol in HDL [Mass/Vol] 64 mg/dL 35-85 [facility] Comment on above: HDL CHOL ATP-III CLA SSIFICATION Cardiovascular RiskHDL > or equal to 60 mg/dL LOWHDL < 40 mg/dL HIGH Serum or plasma potassium me asurement (moles/volume)Ordered By: Car Dong on 04-29-2022 Potassium [Moles/Vol] 4.0 mmol/L 3.5-5.1 [facility] Serum or plasma sodium measu rement (moles/volume)Ordered By: Car Dong on 04-29-2022 Sodium [Moles/Vol] 141 mmol/L 136-146 [facility] Serum or plasma total biliru bin measurement (mass/volume)Ordered By: Car Dong on 04-29-2022 Bilirubin [Mass/Vol] 0.7 mg/dL 0.3-1.2 [place] Serum or plasma total carbon dioxide measurement (moles/volume)Ordered By: Car Dong on 04-29-2022 CO2 [Moles/Vol] 24.5 mmol/L 22.0-30.0 [facility] Serum or plasma total choles terol/high density lipoprotein (HDL) cholesterol mass ratOrdered By: Car Dong on 04-29-2022 Cholesterol.total/Gia sterol in HDL [Mass ratio] 3.2 {ratio} <5.0 [facility] Serum or plasma urea nitroge n measurement (mass/volume)Ordered By: Car Dong on 04-29-2022 Urea nitrogen [Mass/Vol] 5 mg/dL 05-16 [facility] TSH DL <= 0.005 mIU/L QnOrde red By: Car Dong on 04-29-2022 TSH Qn 6.83 m[IU]/L 0.45-5.33 [facility] Thyroid Stimulating Hormoneo n 04-29-2022 TSH Qn 6.83 m[IU]/L High 0.45-5.33 [facility] Comment on above: Performed By: #### T 4F, TSH3, A1C WTH eA, CBC, CMP, LIPID, [id number] ####[facility] [id number] Thyroxine (T4) free [Mass/vo lume] in Serum or PlasmaOrdered By: Car Dong on 04-29-2022 Free T4 [Mass/Vol] 0.72 ng/dL 0.61-1.12 [facility] Triglyceride [Mass/volume] i n Serum or PlasmaOrdered By: Car Dong on 04-29-2022 Triglyceride [Mass/Vol] 145 mg/dL 35-149 [facility] Comment on above: TRIG ATP III CLASSIF ICATIONTRIG less than 150 mg/dL NormalTRIG 150-199 mg/dL Borderline highTRIG 200-500 mg/dL High TRIG greater than 500 mg/dL Very highStandard traceable to the Center for Disease Conrtrol and Prevention (CDC) test method. Vitamin D 25 Hydroxy Totalon 04-29-2022 Vitamin D 25 Hydroxy Total 34.9 ng/mL Normal 30-100 [facility] Comment on above: Result Comment: DERICK MIN D STATUS 25(OH)VITAMIN D RANGE (ng/mL) Deficient <20 Insufficient 20 to <30 Sufficient 30 to 100 Reference: Shira GRAHAM,Meeta NGO, Nevaeh TONG, et al. Evaluation,treatment, and prevention of vitamin D deficiency; an Endocrine Society clinical practice guideline. JCEM. 2010; 96(7):1911-30. PERFORMED BY: [facility] [address] [address] PATHOLOGIST ENVIRONMENTAL CONTROL ADMINISTRATOR MADIHA HAILE M.D. Performed By: #### T 4F, TSH3, A1C WTH eA, CBC, CMP, LIPID, [id number] ####[facility] [id number] [address] [facility] Grant 03-27-2022 L Specimen: [id number] Received: 03/27/22 Status: APRIL Lugo Num: [id number] Spec Type: Surgical Subm Dr: Segun Funk DO Tissues: A Colon - Polyp (ASCENDING POLYP) Procedures: HE Stain/2, Gross/Micro L4 Age/ Patient Sex Location Account Attending Physician Chiquis Walker 72/F [place] [id number] Segun Funk DO SPEC NUM: [id number] RECD: 03/27/22 STATUS: APRIL LUGO NUM: [id number] STEVEN: 03/27/22 DR: Segun Funk DO ENTERED: 03/27/[address]: Usman Sanchez [facility] SPEC TYPE: Surgical DEPT: S [...] support the above pathologic diagnosis. CPT Codes 44535 Specimen: [id number] Received: 03/27/22 Status: APRIL Lugo Num: [id number] Spec Type: Surgical Subm Dr: Segun Funk DO Tissues: A Colon - Polyp (ASCENDING POLYP) Procedures: HE Stain/2, Gross/Micro L4 Patient: Chiquis Walker [id number] (Continued) Signed (signature on file) Jerad Love MD 03/28/22 1427 [facility] XR hips BI 4V adulton 2021 XR hips BI 4V adult [facility] [address] XRay Report Signed Patient: Chiquis Walker MR#: [id number] : 1950 Acct:[id number] Age/Sex: 72 / F ADM Date: 02/11/22 Loc: [facility] Room: Type: [facility] Attending Dr: Roger Khalil MD Copies to: [...] PROCESS. Impression dictated by: Rickey Rodriguez Jr., D.Peewee02/11/2022 2:48 PM Dictation Location: RADIO-PC-13 Transcribed By: BIIB 02/11/22 1448 Dictated By: Rickey Rodriguez Jr, DO 02/11/22 1446 Signed By: 02/11/22 1448 Normal [facility] US extremity nonvascularon 0 02-10-2022 US extremity nonvascular [facility] [place] [address] Ultrasound Report Signed Patient: Chiquis Walker MR#: [id number] : 1950 Acct:[id number] Age/Sex: 72 / F ADM Date: 02/10/22 Loc: Room: Type: [facility] Attending Dr: Arnold Hernandez DO Ordering Provider: [...] Location: RADIO-PC-13 Tech: Dona Hopper Transcribed By: PWS 02/10/221509 Dictated By: Roopa Skinner MD 02/10/22 2050 Signed By: 02/10/22 1510 [facility] Rebeca 01-05-2020 CNPN Telephone (OBGYLN) CHIQUIS WALKER ([id number]) 1950 F Date Time Provider Department 01/05/20 TAN MCGILL ([facility]) OBGYLN During your visit today, we recorded the following information about you: Kelsey Krishna Pss 01/05/2020 11:04 AM Signed micki Coon from [facility] in regards to prescription for GABAPENTIN 4% IN VERSABASE VAGINAL CREAM. Requesting call for clarification on directions, inquiring if it is to be topical or used internally? Pharmacy can be reached at [phone], press Option 4. Please advise. Bruce Almaguer [...] Status:Closed by BRUCE ALMAGUER RN on 01/05/20 [facility] CNOVon 01-02-2020 CNOV Office Visit (OBGYCC) CHIQUIS WALKER ([id number]) 1950 F Date Time Provider Department 01/02/20 11:00 AM TAN MCGILL ([facility]) OBGY During your visit today, we recorded the [...] external genitalia normal, normal Bartholin's glands, urethra, Alpha's glands, no vulvar lesions, good vaginal support, [...] in 6-8 weeks for recheck. Tan Mcgill APRN.YOLETTE Mcgill APRN.YOLETTE 01/02/2020 12:18 PM Addendum Vulvodynia Diagnosis/treatment remain [...] Vaginal burning [N94.9] Order(s):UA DIP, URINE (POC) [] Order #: [id number] GABAPENTIN 4% IN VERSABASE VAGINAL CREAMGabapentin pwdr in ethoxydiglycol, mix in Versabase. 0.5mL TIDDisp: 45 gRfl: 1 UA DIP, URINE (POC) [] Order #: [id number]. #:[id number] VAGINAL PATHOGENS DNA PROBES [SQVAGDNA] Order #: [id number] FUTURE Prescriptions as of 01/02/2020 Sig: LEVOTHYROXINE [...] Status:Closed by TAN MCGILL CNP on 01/02/20 Normal [facility] PROGRESSon 01-02-2020 PROGRESS HNO ID: [id number] Author: Tan (Yolette) Roseann Service: ? Author Type: Nurse Practitioner Type: Progress Notes Filed: 01/02/2020 12:18 PM Note Text: Chiquis Cuenca Willingcailin is a 69 year old female who [...] external genitalia normal, normal Bartholin's glands, urethra, Alpha's glands, no vulvar lesions, good vaginal support, [...] in 6-8 weeks for recheck. Tan Mcgill APRN.SUPPLIER QUALITY MANAGER Normal [facility] Vag Pathogens DNAon 01-02-20 20 Adalgisa sp DNA Probe Negative Normal Negativ e for Adalgisa species by DNA Probe [facility] Comment on above: Performed By: #### V AGDNA #### [place] [address] Mayela vag DNA Probe Negative Normal Negative for Gardnerella vaginalis by DNA Probe [facility] Comment on above: Performed By: #### V AGDNA #### [facility] [address] [place] [address] Trich vag DNA Probe Negative Normal Negative for Trichomonas vaginalis by DNA Probe [facility] Comment on above: Performed By: #### V AGDNA #### [place] [id number] [place] [address] PROGRESSon 12-28-2019 PROGRESS HNO ID: [id number] Author: Malu Norman ([place]) Service: ? Author Type: Physician Miniature Set Designer Type: Progress Notes Filed: 12/28/2019 8:44 AM Note Text: Patient canceled appointment. Intake was done day prior which is why chart was opened. Normal [facility] CNOVon 10-24-2019 CNOV Office Visit (UROLAV) CHIQUIS WALKER ([id number]) 1950 F Date Time Provider Department 10/24/19 1:00 PM MALU NORMAN (PA) UROBETTE During your visit today, we recorded the following information about you: Temperature Pulse Blood pressure Weight 98.1 degrees 75/minute 97/48 78 kg Height 1.638 m Malu Norman PA-C 10/24/2019 1:51 PM Signed [facility] [...] by Dr. Car Dong, her PCP out [facility]. Repeat urine 10/03/2019: moderate leuks, trace protein, [...] breath CARDIOVASCULAR: Negative for chest pain or IN GI: SEE HPI GENITOURINARY: SEE HPI ENDOCRINE:Positive [...] genitourinary condition [Z13.89] Order(s):UA DIP, URINE (POC) [[id number]] Order #: [id number]. #:[id number] estradiol (ESTRACE) 0.01 % (0.1 mg/gram) vaginal [...] Status:Closed by MALU NORMAN PA-C on 10/24/19 Normal [facility] PROGRESSon 10-24-2019 PROGRESS HNO ID: [id number] Author: Madhuri Marmolejo Ma Service: ? Author Type: ? Type: Progress Notes Filed: 10/24/2019 1:08 PM Note Text: PVR = 00ml Via bladder scan. Normal [facility] PROGRESS HNO ID: [id number] Author: Malu Norman (Pa) Service: ? Author Type: Physician Miniature Set Designer Type: Progress Notes Filed: 10/24/2019 1:51 PM Note Text: [facility] [...] by Dr. Car Dong, her PCP out [facility]. Repeat urine 10/03/2019: moderate leuks, trace protein, [...] breath CARDIOVASCULAR: Negative for chest pain or IN GI: SEE HPI GENITOURINARY: SEE HPI ENDOCRINE:Positive [...] DIP, URINE (POC) Malu Norman PA-C Normal [facility] SHOULDER LT 1 VIEWon 019 SHOULDER LT 1 VIEW *FINAL Date of Service: 11/19/2018 08:57 Adm #: [id number] Reading Dr:CASEY ANTONIO Signoff Dr: CASEY ANTONIO [...] NO ADDENDUM Addendum Electronically Signed by/Date: Normal [facility] CBC with Diffon 11-08-2018 AB IMMATURE NEUT 0.01 K/UL Normal 0.0-0.1 [facility] Comment on above: Performed By: #### C BCD #### [address] [address] [place] [address] ABS BASO 0.04 K/UL Normal 0.00-0.22 [facility] Comment on above: Performed By: #### C BCD #### [facility] [address] [place] [address] ABS EOS 0.25 K/UL Normal 0-0.45 [facility] Comment on above: Performed By: #### C BCD #### [address] [place] [address] ABS NEUTROPHILS 4.01 K/UL Normal 1.8-7.7 [facility] Comment on above: Performed By: #### C BCD #### [address] [address] [place] [address] ABS.NEUT.CALCULATED Normal [facility] Comment on above: Result Comment: 4.01 Performed at [place] [address] [place] [address] Performed By: #### C BCD #### [address] [address] [place] [address] Basophils/100 WBC (Bld) 0.50 % Normal 0-1 L [facility] Comment on above: Performed By: #### C BCD #### [address] [address] [place] [address] DIFF TYPE AUTO DIFF Normal [facility] Comment on above: Performed By: #### C BCD #### [address] [address] [place] [address] Eosinophils/100 WBC (Bld) 3.20 % High 0-3 [facility] Comment on above: Performed By: #### C BCD #### [address] [address] [place] [address] Erythrocyte distribution width (RBC) [Ratio] 12.2 % Normal 11.7-15.0 [facility] Comment on above: Performed By: #### C BCD #### [address] [place] [address] Hematocrit (Bld) [Volume fraction] 42.7 % Normal 36-44 [facility] Comment on above: Performed By: #### C BCD #### [address] [address] [place] [address] Hemoglobin (Bld) [Mass/Vol] 14.4 g/dL Normal 12.0-15.0 [facility] Comment on above: Performed By: #### C BCD #### [address] [place] [address] Lymphocytes (Bld) [#/Vol] 2.58 10*3/uL Normal 1.2-3.2 [facility] Comment on above: Performed By: #### C BCD #### [address] [address] [place] [address] Lymphocytes/100 WBC (Bld) 33.50 % Normal 20-40 [facility] Comment on above: Performed By: #### C BCD #### [facility] [address] [place] [address] MCH (RBC) [Entitic mass] 32.6 pg Normal 26-34 [facility] Comment on above: Performed By: #### C BCD #### [facility] [address] [place] [address] MCHC (RBC) [Mass/Vol] 33.7 % Normal 31-37 [facility] Comment on above: Performed By: #### C BCD #### [facility] [address] [place] [address] MCV (RBC) [Entitic vol] 96.6 fL Normal 80-100 L [facility] Comment on above: Performed By: #### C BCD #### [address] [address] [place] [address] MEAN PLT VOL 11.1 CU Normal 7.0-12.6 [facility] Comment on above: Performed By: #### C BCD #### [address] [place] [address] Monocytes (Bld) [#/Vol] 0.82 10*3/uL High 0-0.8 [facility] Comment on above: Performed By: #### C BCD #### [address] [address] [place] [address] Monocytes/100 WBC (Bld) 10.60 % High 0-8 L [facility] Comment on above: Performed By: #### C BCD #### [address] [place] [address] Neutrophils/100 WBC (Bld) 0.10 % Normal 0.0-1.0 [facility] Comment on above: Performed By: #### C BCD #### [address] [address] [place] [address] Neutrophils/100 WBC (Bld) 52.10 % Normal 50-70 [facility] Comment on above: Performed By: #### C BCD #### [address] [address] [place] [address] NRBC'S 0 /100 WBC Normal 0 [facility] Comment on above: Performed By: #### C BCD #### [address] [place] [address] Platelets (Bld) [#/Vol] 226 10*3/uL Normal 150-450 [facility] Comment on above: Performed By: #### C BCD #### [address] [address] [place] [address] RBC (Bld) [#/Vol] 4.42 M/UL Normal 4.0-4.9 [facility] Comment on above: Performed By: #### C BCD #### [address] [place] [address] RDW-SD 43.1 FL Normal 37.0-54.0 [facility] Comment on above: Performed By: #### C BCD #### [address] [place] [address] WBC (Bld) [#/Vol] 7.7 10*3/uL Normal 4.5-11.0 [facility] Comment on above: Performed By: #### C BCD #### [address] [address] [place] [address] COMPREHENSIVE METABOLIC PANE Grant 11-08-2018 Albumin [Mass/Vol] 4.2 g/dL Normal 3.5-5.0 [facility] Comment on above: Performed By: #### C GERMINATION WORKER #### [address] [address] [place] [address] Albumin/Globulin [Mass ratio] 1.3 {ratio} Low 1.5-3.0 [facility] Comment on above: Performed By: #### C GERMINATION WORKER #### [address] [address] [place] [address] ALP [Catalytic activity/Vol] 97 U/L Normal 35-125 [facility] Comment on above: Performed By: #### C GERMINATION WORKER #### [address] [place] [address] ALT [Catalytic activity/Vol] 17 U/L Normal 5-40 [facility] Comment on above: Performed By: #### C GERMINATION WORKER #### [facility] [address] [place] [address] Anion gap [Moles/Vol] 10 mmol/L Normal 0-19 [facility] Comment on above: Performed By: #### C GERMINATION WORKER #### [facility] [address] [place] [address] AST [Catalytic activity/Vol] 20 U/L Normal 5-40 [facility] Comment on above: Performed By: #### C GERMINATION WORKER #### [facility] [address] [place] [address] Bilirubin [Mass/Vol] 0.3 mg/dL Normal 0.1-1.2 [facility] Comment on above: Performed By: #### C GERMINATION WORKER #### [facility] [address] [place] [address] Calcium [Mass/Vol] 9.6 mg/dL Normal 8.5-10.4 [facility] Comment on above: Performed By: #### C GERMINATION WORKER #### [facility] [address] [place] [address] Chloride [Moles/Vol] 104 mmol/L Normal 97-107 [facility] Comment on above: Performed By: #### C GERMINATION WORKER #### [facility] [address] [place] [address] CO2 [Moles/Vol] 26 mmol/L Normal 24-31 [facility] Comment on above: Performed By: #### C GERMINATION WORKER #### [facility] [address] [place] [address] Creatinine [Mass/Vol] 0.8 mg/dL Normal 0.4-1.6 [facility] Comment on above: Performed By: #### C GERMINATION WORKER #### [facility] [address] [place] [address] GFR/1.73 sq M.predicted MDRD (S/P/Bld) [Vol rate/Area] Normal [facility] Comment on above: Result Comment: 75 GFR ml/min/1.73m2 Stage ----- 90 1 60-89 2 30-59 3 15-29 4 <15 5 For -Americans, multiply EGFR result by 1.210 Calculation not validated for patients under 18 years of age. Performed at [address] [address] Performed By: #### C GERMINATION WORKER #### [address] [address] Globulin (S) [Mass/Vol] 3.2 g/dL Normal 1.9-3.[address] [facility] Comment on above: Performed By: #### C GERMINATION WORKER #### [address] [address] Glucose [Mass/Vol] 95 mg/dL Normal 65-99 [facility] Comment on above: Performed By: #### C GERMINATION WORKER #### [address] [address] Potassium [Moles/Vol] 4.2 mmol/L Normal 3.4-5.1 [facility] Comment on above: Performed By: #### C GERMINATION WORKER #### [address] [address] Protein [Mass/Vol] 7.4 g/dL Normal 5.9-7.9 [facility] Comment on above: Performed By: #### C GERMINATION WORKER #### [address] [address] Sodium [Moles/Vol] 140 mmol/L Normal 133-145 [facility] Comment on above: Performed By: #### C GERMINATION WORKER #### [address] [address] Urea nitrogen [Mass/Vol] 11 mg/dL Normal 8-25 [facility] Comment on above: Performed By: #### C GERMINATION WORKER #### [address] [address] Urea nitrogen/Creatinine [Mass ratio] 13.8 RATIO Normal 8-21 [facility] Comment on above: Performed By: #### C GERMINATION WORKER #### [address] [place] [address] UA-REFLEX TO CULTUREon 11-08 BACT Negative Normal [facility] Comment on above: Performed By: #### U ACUL #### [facility] [address], [place] [address] MICROSCOPIC AUTOMATIC MICROSCOPIC URINES Normal [facility] Comment on above: Performed By: #### U ACUL #### [facility] [address], [place] [address] RBC 1 /HPF Normal 0-3 [facility] Comment on above: Performed By: #### U ACUL #### [facility] [address], [place] [address] URINE HYALINE CAST NONE SEEN Normal [facility] Comment on above: Performed By: #### U ACUL #### [facility] [address], [place] [address] URINE SQUAMOUS EPI NONE SEEN Normal [facility] Comment on above: Performed By: #### U ACUL #### [facility] [address], [place] [address] WBC (Bld) [#/Vol] NONE SEEN Normal 0-3 [facility] Comment on above: Performed By: #### U ACUL #### [facility] [address], [place] [address] Bacteria identified Cx Nom (U) [facility] Comment on above: Result Comment: CULT URE NOT INDICATED Performed at [facility] [address] [place] [address] Performed By: #### U ACUL #### [facility] [address], [place] [address] BILI Negative Normal NEG [facility] Comment on above: Performed By: #### U ACUL #### [facility] [address], [place] [address] BLOOD Negative Normal NEG [facility] Comment on above: Performed By: #### U ACUL #### [facility] [address], [place] [address] Clarity (U) CLEAR Normal [facility] Comment on above: Performed By: #### U ACUL #### [facility] [address], [place] [address] Color (U) PALE YELLOW Normal [facility] Comment on above: Performed By: #### U ACUL #### [facility] [address], [place] [address] GLUC Negative Normal NEG [facility] Comment on above: Performed By: #### U ACUL #### [facility] [address], [place] [address] KET Negative Normal NEG [facility] Comment on above: Performed By: #### U ACUL #### [facility] [address], [place] [address] LEUK Negative Normal NEG [facility] Comment on above: Performed By: #### U ACUL #### [facility] [address], [place] [address] NIT Negative Normal NEG [facility] Comment on above: Performed By: #### U ACUL #### [facility] [address], [place] [address] pH (U) 6.0 [pH] Normal 4.6-8.0 [facility] Comment on above: Performed By: #### U ACUL #### [facility] [address], [place] [address] PROT Negative Normal NEG [facility] Comment on above: Performed By: #### U ACUL #### [facility] [address], [place] [address] SP GRAV,URINE 1.011 Normal 1.005-1.030 [facility] Comment on above: Performed By: #### U ACUL #### [facility] [address], [place] [address] URO NORMAL Normal 0-1.0 [facility] Comment on above: Performed By: #### U ACUL #### [facility] [address], [place] [address] ARTHROGRAM SHOULDER INJCT RT on 09-10-2018 ARTHROGRAM SHOULDER INJCT RT DATE OF EXAM: Sep 10 2018 10:50AM CLINICAL HISTORY/ Patient Name: CHIQUIS WALKER STUDY: ARTHROGRAM SHOULDER INJCT RT; 09/10/2018 10:50 am INDICATION: localized, primary OA of shoulder region. COMPARISON: None. ACCESSION NUMBER(S): [id number] ORDERING CLINICIAN: JOSHUA CARY TECHNIQUE: The procedure [...] of the right shoulder. Normal [facility] ARTHROGRAM SHOULDER INJCT LT on 08-11-2018 ARTHROGRAM SHOULDER INJCT LT DATE OF EXAM: Aug 11 2018 10:06AM CLINICAL HISTORY/ Patient Name: CHIQUIS WALKER STUDY: ARTHROGRAM SHOULDER INJCT LT; 08/11/2018 10:06 am INDICATION: impingement syndrome, shoulder; shoulder pain. COMPARISON: None. ACCESSION NUMBER(S): [id number] ORDERING CLINICIAN: JOSHUA CARY TECHNIQUE: The procedure [...] of the left shoulder. Normal [facility] eOperative Reporton 06-10-20 18 eOperative Report [address] [address] OPERATIVE REPORT Patient Name:CHIQUIS WALKER Dictating Physician: [...] block. COMPLICATIONS: None. SURGEON: Joshua Cary M.D. HEAD SETTER: Joshua Palumbo PA-C. SUMMATION OF EVENT: Joshua Palumbo PA-C, was present throughout the entire case. Given the nature of the disease process and the procedure, a skilled surgical territory manager was necessary during the case. The quality control assistant was necessary to hold retractors and manipulate the extremity during the procedure. A certified medical coder was at the back table managing the [...] cm tear with minimal retraction. Percutaneously, a facilities flight check pilot hole was made and a 5.5 [...] room. Joshua Cary M.D. INTERNAL JOB NUMBER: [id number] CC: Electronically signed by Joshua Cary MD on 10 Jun 2018 15:25:48 T [facility] [facility] [place] [address] HISTORY AND PHYSICAL EXAMINATION Patient Name:CHIQUIS WALKER [...] will be on June 01, 2018 at [facility]. We will order scalene nerve block preoperatively. [...] will be on June 01, 2018, at [facility]. The patient will follow up postop at [facility]. Joshua Palumbo PA-C for Joshua Cary M.D. INTERNAL JOB NUMBER: [id number] CC: Electronically signed by Joshua Cary MD on 01 Jun 2018 11:09:40 GMT Normal [facility] CBC With Differentialon 10-0 Basophils #/vol (Bld) 0.05 10*3/uL Normal 0.01-0.07 [facility] Comment on above: Performed By: #### 2 [id number] #### [facility] [address] [place] [address] Basophils/100 WBC (Bld) 0.8 % Normal 0.1-1.2 [facility] Comment on above: Performed By: #### 2 [id number] #### [facility] [address] [place] [address] Eosinophils #/vol (Bld) 0.25 10*3/uL Normal 0.04-0.50 [facility] Comment on above: Performed By: #### 2 [id number] #### [facility] [address] [place] [address] Eosinophils/100 WBC (Bld) 3.9 % Normal 0.0-8.1 [facility] Comment on above: Performed By: #### 2 [id number] #### [facility] [address] [place] [address] Erythrocyte distribution width Ratio (RBC) 12.3 % Normal 12.0-15.4 [facility] Comment on above: Performed By: #### 2 842366 #### [facility] [address] [place] [address] Hematocrit Volume Fraction (Bld) 38.9 % Normal 36.5-46.6 [facility] Comment on above: Performed By: #### 2 [id number] #### [facility] [address] [place] [address] Hemoglobin mass conc (Bld) 13.5 g/dL Normal 11.8-15.3 [facility] Comment on above: Performed By: #### 2 549968 #### [facility] [address] [place] [address] Imm Grans Absolute 0.01 10*3/uL Normal 0.00-0.21 [facility] Comment on above: Performed By: #### 2 [id number] #### [facility] [address] [place] [address] Immature granulocytes #/vol (Bld) 0.2 % Normal [facility] Comment on above: Performed By: #### 2 844515 #### [facility] [address] [place] [address] Lymphocytes #/vol (Bld) 2.59 10*3/uL Normal 0.40-2.84 [facility] Comment on above: Performed By: #### 2 [id number] #### [facility] [address] [place] [address] Lymphocytes/100 WBC (Bld) 40.2 % Normal 15.7-50.5 [facility] Comment on above: Performed By: #### 2 071274 #### [facility] [address] [place] [address] MCH Entitic mass (RBC) 32.2 pg Normal 27.5-33.0 [facility] Comment on above: Performed By: #### 2 611009 #### [facility] [address] [place] [address] MCHC mass conc (RBC) 34.7 g/dL Normal 30.1-35.0 [facility] Comment on above: Performed By: #### 2 923172 #### [facility] [address] [place] [address] MCV Entitic volume (RBC) 92.8 fL Normal 85.4-100.0 [facility] Comment on above: Performed By: #### 2 [id number] #### [facility] [address] [place] [address] Monocytes #/vol (Bld) 0.75 10*3/uL Normal 0.25-0.83 [facility] Comment on above: Performed By: #### 2 763604 #### [facility] [address] [place] [address] Monocytes/100 WBC (Bld) 11.6 % Normal 4.8-12.7 [facility] Comment on above: Performed By: #### 2 [id number] #### [facility] [address] [place] [address] Neutrophils Absolute 2.79 10*3/uL Normal 1.95-6.85 [facility] Comment on above: Performed By: #### 2 656934 #### [facility] [address] [place] [address] Neutrophils/100 WBC (Bld) 43.3 % Normal 36.8-73.2 [facility] Comment on above: Performed By: #### 2 733578 #### [facility] [address] [place] [address] NRBC Absolute 0.00 10*3/uL [facility] Comment on above: Performed By: #### 2 796832 #### [facility] [address] [place] [address] NRBC Automated 0.0 /100{WBCs} Normal [facility] Comment on above: Performed By: #### 2 482834 #### [facility] [address] [place] [address] Platelet mean volume Entitic volume (Bld) 11.0 fL Normal 9.9-12.1 [facility] are Comment on above: Performed By: #### 2 [id number] #### [facility] [address] [place] [address] Platelets #/vol (Bld) 217 10*3/uL Normal 155-404 [facility] Comment on above: Performed By: #### 2 710894 #### [facility] [address] [place] [address] RBC #/vol (Bld) 4.19 10*6/uL Normal 3.85-5.10 [facility] Comment on above: Performed By: #### 2 615397 #### [facility] [address] [place] [address] RDW SD 42.1 fL Normal 39.3-48.6 [facility] Comment on above: Performed By: #### 2 189000 #### [facility] [address] [place] [address] WBC #/vol (Bld) 6.4 10*3/uL Normal 4.4-9.9 [facility] Comment on above: Performed By: #### 2 909747 #### [facility] [address] [place] [address] Comprehensive Metabolic Pane grant 05-27-2018 Albumin mass conc 4.2 g/dL Normal 3.4-5.0 [facility] Comment on above: Performed By: #### 1 [id number] #### [facility] [address] [place] [address] Albumin/Globulin mass ratio 1.6 {ratio} Normal 0.9-2.4 [facility] Comment on above: Performed By: #### 1 [id number] #### [facility] [address] [place] [address] ALP enzyme act/vol 85 U/L Normal 45-117 [facility] Comment on above: Performed By: #### 1 742911 #### [facility] [address] [place] [address] ALT enzyme act/vol 20 U/L Normal 7-45 [facility] Comment on above: Performed By: #### 1 177781 #### [facility] [address] [place] [address] Anion gap molar conc 12 mmol/L Normal 10-20 [facility] Comment on above: Performed By: #### 1 728814 #### [facility] [address] [place] [address] AST enzyme act/vol 21 U/L Normal 13-39 [facility] Comment on above: Performed By: #### 1 [id number] #### [facility] [address] [place] [address] Bilirubin mass conc 0.4 mg/dL Normal 0.0-1.2 [facility] Comment on above: Performed By: #### 1 339392 #### [facility] [address] [place] [address] Calcium mass conc 9.5 mg/dL Normal 8.6-10.3 [facility] Comment on above: Performed By: #### 1 [id number] #### [facility] [address] [place] [address] Chloride molar conc 106 mmol/L Normal 98-107 [facility] Comment on above: Performed By: #### 1 081485 #### [facility] [address] [place] [address] Creatinine mass conc 0.79 mg/dL Normal 0.50-1.05 [facility] Comment on above: Performed By: #### 1 [id number] #### [facility] [address] [place] [address] GFR/1.73 sq M.predicted MDRD vol rate/area mL/min/{1.73_m2} Normal [facility] Comment on above: Result Comment: Inte rpretation for Chronic Kidney Disease: Stages 1&2 >60 Healthy or potential kidney damage. Mild decrease of GFR. Stage 3 30-59 Moderate decrease of GFR. Stage 4 15-29 Severe decrease of GFR. Stage 5 <15 Kidney failure or on dialysis. Performed By: #### 1 200839 #### [facility] [address] [place] [address] Glucose mass conc 87 mg/dL Normal 70-100 [facility] Comment on above: Performed By: #### 1 042245 #### [facility] [address] [place] [address] HCO3 molar conc (Bld) 25 mmol/L Normal 21-32 [facility] Comment on above: Performed By: #### 1 078614 #### [facility] [address] [place] [address] Potassium molar conc 3.9 mmol/L Normal 3.5-5.1 [facility] Comment on above: Performed By: #### 1 789167 #### [facility] [address] [place] [address] Protein mass conc 6.9 g/dL Normal 6.4-8.2 [facility] Comment on above: Performed By: #### 1 195442 #### [facility] [address] [place] [address] Sodium molar conc 139 mmol/L Normal 136-145 [facility] Comment on above: Performed By: #### 1 [id number] #### [facility] [address] [place] [address] Urea nitrogen mass conc 8 mg/dL Normal 6-23 [facility] Comment on above: Performed By: #### 1 035739 #### [facility] [address] [place] [address] Urea nitrogen/Creatinine mass ratio 10 mg/mg Normal 5-25 [facility] Comment on above: Performed By: #### 1 [id number] #### [facility] [address] [place] [address] Partial Thromboplastin Timeo n 05-27-2018 aPTT Coag time (Bld) 30.4 s Normal 25.0-36.0 [facility] Comment on above: Result Comment: . The APTT is no longer used for monitoring Unfractionated Heparin Therapy. For monitoring Heparin Therapy, use the Heparin Assay. Performed By: #### 3 [id number] #### [facility] [address] [place] [address] Prothrombin Timeon 8 INR Coag RelTime (PPP) 0.93 {INR} Normal 0.90-1.10 [facility] Comment on above: Performed By: #### 3 [id number] #### [facility] [address] [place] [address] Prothrombin time (PT) Coag time (PPP) 10.3 s Normal 9.8-12.7 [facility] Comment on above: Performed By: #### 3 [id number] #### [facility] [address] [place] [address] Urinalysison 05-27-2018 Appearance Nom (U) Clear Normal Clear [facility] Comment on above: Performed By: #### 1 [id number] #### [facility] [address] [place] [address] Ascorbic Acid Negative Normal Negative [facility] Comment on above: Performed By: #### 1 [id number] #### [facility] [address] [place] [address] Automated Urine Microscopy Performed Normal [facility] Comment on above: Performed By: #### 1 [id number] #### [facility] [address] [place] [address] Bacteria LM.HPF #/area (Urine sed) Rare Normal None [facility] Comment on above: Performed By: #### 1 [id number] #### [facility] [address] [place] [address] Bilirubin mass conc Negative Normal Negative [facility] Comment on above: Performed By: #### 1 [id number] #### [facility] [address] [place] [address] Blood Negative Normal Negative [facility] Comment on above: Performed By: #### 1 [id number] #### [facility] [address] [place] [address] Color Nom (U) Straw Normal [facility] Comment on above: Performed By: #### 1 [id number] #### [facility] [address] [place] [address] Glucose mass conc Negative Normal Negative [facility] Comment on above: Performed By: #### 1 [id number] #### [facility] [address] [place] [address] Ketones Ql (U) Negative Normal Negative [facility] Comment on above: Performed By: #### 1 [id number] #### [facility] [address] [place] [address] Leukocytes Esterase Moderate Abnormal Negative [facility] Comment on above: Performed By: #### 1 [id number] #### [facility] [address] [place] [address] Nitrite Ql (U) Negative Normal Negative [facility] Comment on above: Performed By: #### 1 [id number] #### [facility] [address] [place] [address] pH (Bld) 7.0 Normal 5.0-9.0 [facility] Comment on above: Performed By: #### 1 [id number] #### [facility] [address] [place] [address] Protein mass conc (U) Negative Normal Negative [facility] Comment on above: Performed By: #### 1 [id number] #### [facility] [address] [place] [address] RBC 1 /[HPF] Normal 0-3 [facility] Comment on above: Performed By: #### 1 [id number] #### [facility] [address] [place] [address] Specific gravity Relative Density (U) 1.005 Normal 1.003-1.035 [facility] Comment on above: Performed By: #### 1 [id number] #### [facility] [address] [place] [address] Squamous Epithelial Cells 1 /[HPF] Normal 0-5 [facility] Comment on above: Performed By: #### 1 [id number] #### [facility] [address] [place] [address] Urobilinogen Qn (U) <2.0 Normal Negative [facility] Comment on above: Performed By: #### 1 [id number] #### [facility] [address] [place] [address] WBC 24 /[HPF] Normal 0-5 [facility] Comment on above: Performed By: #### 1 [id number] #### [facility] [address] [place] [address] Vital Signs Date Time Vital Sign Value Performing Clinician Zacarias gross 09-11-2022 11:45-0500 Body height 163.83 cm Joshua Mesa II Other [employer] Other 09-11-2022 11:45-0500 Body mass index (BMI) [Ratio] 27.54 kg/m2 Joshua Ruthisle II Other [employer] Other 09-11-2022 11:45-0500 Body weight 73.94 kg Joshua Ruthisle II Other [employer] Other 02-11-2022 14:30-0400 Body height 163.83 cm Roger Khalil Other [employer] Other 02-11-2022 14:30-0400 Body mass index (BMI) [Ratio] 27.71 kg/m2 Roger Khalil Other [employer] Other 02-11-2022 14:30-0400 Body weight 74.39 kg Roger Khalil Other [employer] Other 01-21-2022 11:40-0400 Body height 163.83 cm Ag Mederos Other [employer] Other 01-21-2022 11:40-0400 Body mass index (BMI) [Ratio] 27.71 kg/m2 Ag Mederos Other [employer] Other 01-21-2022 11:40-0400 Body weight 74.39 kg Ag Mederos Other [employer] Other Encounters Encounter Date Encounter Type Care Provider Facility Start: 09-14-2023 End: 09-15-2023 ambulatory Sacha Good MD Facility:[facility] Start: 08-31-2023 End: 09-01-2023 ambulatory Sacha Good MD Facility:[facility] Start: 07-27-2023 End: 07-28-2023 ambulatory Sacha Good MD Facility:[facility] Start: 06-29-2023 End: 06-30-2023 ambulatory Sacha Good MD Facility:[facility] Start: 01-14-2023 End: 01-14-2023 ambulatory Car Bunting Facility:[facility] Start: 11-21-2022 End: 11-21-2022 Discharged Recurring DO Car Bunting Work Phone: [facility] [address] Start: 11-21-2022 Registered Recurring DO Car Bunting Work Phone: [facility] [address] Start: 11-21-2022 End: 11-21-2022 ambulatory Car Bunting Facility:[facility] Start: 11-21-2022 End: 11-21-2022 ambulatory DO Car Bunting Work Phone: [facility] Work Phone: Start: 11-21-2022 End: 11-21-2022 Patient encounter procedure DO Car Bunting Work Phone: [facility] [place] Work Phone: Start: 10-27-2022 ambulatory TI PIERRE [facility] Start: 09-11-2022 End: 09-11-2022 ambulatory Joshua Valentin II Other [employer] Other Start: 09-11-2022 Office outpatient visit 25 minutes Joshua Valentin II [facility] Start: 08-22-2022 End: 08-22-2022 ambulatory Joshua Valentin II Facility:[facility] Start: 08-22-2022 End: 08-22-2022 ambulatory DO Car Bunting Work Phone: [facility] Work Phone: Start: 08-22-2022 End: 08-22-2022 Patient encounter procedure DO Car Bunting Work Phone: [facility] [address] Work Phone: Start: 07-28-2022 (Procedure) Short Roger Khalil [facility] Start: 07-28-2022 End: 07-28-2022 ambulatory Roger Khalil Other [employer] Other Start: 07-02-2022 FQ visit new patient Joshua parada II [facility] Start: 07-02-2022 End: 07-02-2022 ambulatory DO Car Bunting Work Phone: [facility] Work Phone: Start: 07-02-2022 End: 07-02-2022 Patient encounter procedure DO Car Bunting Work Phone: [facility] Start: 06-10-2022 End: 06-10-2022 ambulatory Joshua Valentin II Other [employer] Other Start: 06-10-2022 Telephone encounter Joshua Valentin II [facility] Start: 06-02-2022 End: 06-02-2022 ambulatory Car Bunting Facility:[facility] Start: 06-02-2022 End: 06-02-2022 ambulatory DO Car Bunting Work Phone: [facility] Work Phone: Start: 06-02-2022 End: 06-02-2022 Patient encounter procedure DO Car Bunting Work Phone: [facility] Start: 04-29-2022 End: 04-29-2022 ambulatory Car Bunting Facility:[facility] Start: 04-29-2022 End: 04-29-2022 Patient encounter procedure DO Car Bunting Work Phone: [facility] [place] Start: 03-27-2022 End: 03-27-2022 ambulatory Segun Arevalojojo Facility:[facility] Start: 03-27-2022 End: 03-27-2022 Departed Referred DO Car Bunting Work Phone: [facility] [address] [place] Start: 03-24-2022 (Procedure) Short Roger Khalil [facility] Start: 03-24-2022 End: 03-24-2022 ambulatory Roger Khalil Other [employer] Other Start: 03-10-2022 End: 03-10-2022 ambulatory Roger Khalil Other [employer] Other Start: 03-10-2022 Office outpatient visit 25 minutes Roger Khalil [facility] [place] Start: 02-12-2022 End: 02-12-2022 ambulatory Roger Khalil Other [employer] Other Start: 02-12-2022 Telephone encounter Roger Ojeda [facility] Start: 02-11-2022 End: 02-11-2022 Patient encounter procedure DO Car Bunting Work Phone: [facility] Start: 02-11-2022 End: 02-11-2022 ambulatory Roger Khalil [employer] Other Start: 02-11-2022 Office outpatient ne w 45 minutes Roger Khalil [facility] [place] Start: 02-10-2022 End: 02-10-2022 ambulatory Arnold Hernandez Facility:[facility] Start: 02-10-2022 End: 02-10-2022 Patient encounter procedure DO Car Bunting Work Phone: [facility] [place] Start: 01-21-2022 End: 01-21-2022 ambulatory Ag Mederos Other [employer] Other Start: 01-21-2022 Office outpatient ne w 30 minutes Ag KWONG Located [facility] Start: 09-10-2018 Patient encounter procedure JOSHUA CARY Facility:[facility] Start: 09-10-2018 Patient encounter procedure Facility:[id number] Start: 09-06-2018 Patient encounter procedure JOSHUA REGALADONOTTI Facility:8 Start: 08-11-2018 Patient encounter procedure JOSHUA REGALADONOTTRISHA Facility:[facility] Start: 08-11-2018 Patient encounter procedure Facility:[id number] Start: 08-05-2018 Patient encounter procedure JOSHUA REGALADONOTTI Facility:8 Start: 07-22-2018 Patient encounter procedure JOSHUA REGALADONOTTI Facility:8 Start: 06-24-2018 Patient encounter procedure JOSHUA REGALADONOTTI Facility:8 Start: 06-03-2018 Patient encounter procedure PONCHO REGALADOLILLIANTRISHA Facility:8 Start: 06-01-2018 End: 06-01-2018 Patient encounter procedure JOSHUA REGALADONOTTI Facility:[facility] Start: 05-31-2018 Patient encounter procedure CAR R BUNTING Facility:8 Start: 05-27-2018 Patient encounter procedure JOSHUA REGALADONOTTI Facility:[facility] Start: 03-29-2018 Patient encounter procedure JOSHUA REGALADONOTTI Facility:8 Start: 03-08-2018 Patient encounter procedure JOSHUA REGALADONOTTI Facility:8 Start: 01-11-2018 Patient encounter procedure JOSHUA REGALADONOTTI Facility:8 Procedures Date Procedure Procedure Detail Performing [...] high dose seasonal, preservative-free Ag Mederos Other [employer] Other Payers Date Payer Category Payer Medicare 2022 Medicare [id number] [id number]. [id number] 2021 Medicare [id number] 2. [id number] 2021 Self-pay [id number] 1950 Unknown [id number] 2.16.840.1.979497.3.579.2.356 1948 Unknown [id number] 2.16.840.1.622602.3.579.2.356 1948 Unknown [id number] 2.16.840.1.931580.3.579.2.355 1948 Unknown [id number] 2.16.840.1.392211.3.579.2. 1948 Unknown [id number] 2.16.840.1.340686.3.579.2.355 1948 Unknown [id number] 2.16.840.1.349081.3.579.2.355 1948 Unknown [id number] 2.16.840.1.587472.3.579.2. 1948 Unknown [id number] 2.16.840.1.484834.3.579.2. 1948 Unknown [id number] 2.16.840.1.019303.3.579.2. 1948 Unknown [id number] 2.16.840.1.568256.3.579.2.355 1948 Unknown [id number] 2.16.840.1.405933.3.579.2.355 1948 Unknown [id number] .840.1.285868.3.579.2.355 1948 Unknown [id number] 2.840.1.795356.3.579.2. 1948 Unknown [id number] .840.1.568997.3.579.2.355 1948 Unknown [id number] .840.1.582636.3.579.2. 1948 Unknown [id number] .0.1.939502.3.579.2. 1948 Unknown [id number] .0.1.920698.3.579.2.196 1948 Unknown [id number] .1.334488.3.579.2.196 1948 Unknown [id number] .0.1.349915.3.579.2.196 1948 Unknown [id number] 10.09.830.1.933604.3.579.2.196 Medicare Medicare [id number] Private Health Insurance MEB NVVFB Unknown [place]/BS [id number] Unknown [id number] 840.1.919449.3.579.2.531 Unknown [id number] 840.1.623970.3.579.2.531 Unknown [id number] 840.1.133291.3.579.2.531 Unknown [id number] 840.1.919999.3.579.2.531 Unknown [id number] 840.1.647201.3.579.2.531 Unknown [id number] 2.16.840.1.619689.3.579.2.531 Unknown [id number] 2.16.840.1.001272.3.579.2.531 Unknown [id number] 2.16.840.1.752447.3.579.2.531 Unknown [id number] 2.16.840.1.282867.3.579.2.531 Unknown [id number] 2.16.840.1.901049.3.579.2.531 Social History Date Type Detail Facility Unknown if ever smoked [employer] Other Sex Assigned At Sex Assigned At Bir th [employer] Other Start: 01-06-2022 End: 01-06-2022 Tobacco smoking status NHIS Never smoked tobacco (finding) [facility] Start: 1950 Sex Assigned At Female F [facility] Progress note 10-27-2022 Note Date & Type [...] 6 weeks. I will call in a Medrol Dosepak as well. If she is not [...] Piriformis syndrome of right side Lumbar radiculopathy [facility] Evaluation note 09-11-2022 Note Date & Type [...] I recommended referral to Dr Pierre at [facility] for evaluation of this chronic greater trochanteric bursitis. Patient agreed. We will get the referral made. [employer] Other Evaluation note 07-02-2022 Note Date & [...] get her back over to see Dr. hKalil for her right hip ischial bursa injection. She can follow-up with me in the future on a as needed basis. Think in the future if she is continuing to complain of pain over the greater trochanter we should get her into see a hip arthroscopist either with Jaren or Delma to determine if she is a candidate for another soft tissue procedure. [employer] Other Evaluation note 03-10-2022 Note Date & [...] Above note written by Blake Todd MA, Rose Grader. Edited and approved by Dr. Roger Khalil MD [employer] Other Evaluation note 02-11-2022 Note Date & [...] Jan, Other chronic pain (ICD-10 - G89.29) Jan, Other Above note written by Blake Todd MA, Rose Grader. Edited and approved by Dr. Roger Khalil [...] negative findings were considered in medical decision-making. 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 [place] Referred Provider Roger Khalil Referred Address [address] [place],[address] Referred Provider Specialty Pain Medicin e Referral Priority Routine General Notes Lorelei Tabares 03:52:41 PM >p2p sent Reason 10/27/22 @ 9:[address] Pierre for Chronic Right Hip Bursitis Diagnosis 1 Ischial bursitis of right side (M70.71) Referral Organization [facility] Referring Provider First Name Joshua [...] section and content) DATE CREATED AUTHOR 09/20/2018 [facility] DATE CREATED AUTHOR AUTHOR'S ORGANIZ ATION 09/29/2018 [facility] DATE CREATED AUTHOR AUTHOR'S ORGANIZ ATION 04/04/2019 [facility] DATE CREATED AUTHOR AUTHOR'S ORGANIZ ATION 01/08/2020 [facility] DATE CREATED AUTHOR AUTHOR'S ORGANIZ ATION 11/01/2022 [facility] DATE CREATED AUTHOR AUTHOR'S ORGANIZ ATION 02/03/2023 [facility] DATE CREATED AUTHOR AUTHOR'S ORGANIZ ATION 09/18/2023 [facility] REASON FOR VISIT (unrecogniz ed section and [...] DO Primary Care Provider Active Segun Funk DO Attending Provider Active Team Status: Inactive Member Role Status Dates Car Dong , DO Primary Care Provider Active Roger Khalil MD Attending Provider Active Team Status: Inactive Member Role Status Dates Car Dong , DO Primary Care Provider Active Arnold Hernandez DO Attending Provider Active Team Status: Active [...] BE BASED ON THE PRIMARY CLINICAL RECORDS. [facility]. provides no warranty or guarantee of the accuracy or completeness of information in this document.
--- NOTE | 2023-09-24 13:22 | P.CN_ITS ---
Consult Note: HPI Data of Consult Patient: known to practice within the last 3 years Consult date: 07/27/23 Requesting Physician: Yulissa Bro NP Primary Care Provider: CAR BLANCO Consult Narrative Reason for consult: low back, right hip and leg pain Narrative: 73yof who presents for assessment. notes significant relief temporarily after her right troch bursa injection. continues to now have symptoms into right hip and leg. imaging reviewed, which is significant for multiple levels of stenosis, worst at l3-4 and l4-5. continues in provider directed home exercise program >6 weeks >3x/week, with limited benefit. continues to use otc meds as needed. Recently underwent right L3/4 L4/5 TFESI and right SI nerve block with no change in pain or symptoms. Patient reporting pain today 03/02 burning in right buttock and hip. cc:: CC: Yulissa Bro NP Review of Systems 2 ROS0 Status of ROS 10 or more systems reviewed and unremark able except as noted in history and below Musculoskeletal Reports: extremity pain and joint pain Meds Home Medications and Allergies Home Medications Medication Instructions Recorded Confirmed Type alprazolam 0.5 mg tablet 0.5 mg PO DAILY 07/02/23 09/14/23 History cholestyramine (with sugar) 4 gram ea 07/02/23 History oral powder levothyroxine 125 mcg capsule 125 mcg PO DAILY 07/02/23 09/14/23 History rosuvastatin 40 mg tablet 40 mg PO DAILY 07/02/23 09/14/23 History rosuvastatin 40 mg tablet (Crestor) 40 mg PO DAILY 07/02/23 09/14/23 History sertraline 50 mg tablet 50 mg PO DAILY 07/02/23 09/14/23 History methylprednisolone 4 mg tablets in 4 mg PO DAILY #21 ea 09/24/23 Rx a dose pack (Medrol (Александр)) Allergies Allergy/AdvReac Type Severity Reaction Status Date / Time No Known Drug Allergies Allergy Verified 09/14/23 10:15 Exam Narrative Exam Narrative: Psych-alert and oriented x 3. Attentive and appropriate, constitutionally normal, displays normal mood and affect per situation. There are no obvious deficits in memory, reasoning, or intellect.? Skin-no obvious rashes, bruising, erythema noted to the patient's area of pain.? Extremities- extremities are warm with minimal edema and palpable pulses. Lumbar-tenderness to palpation noted in the lumbar spine and paraspinal musculature. Pain is elicited with flexion, extension, and lateral rotation of the lumbar spine. Range of motion is diminished with these motions. Facet loading maneuvers are positive.? Strength-noted to be unremarkable with the exception of decreased strength rated at 4 out of 5 in right quadriceps femoris, anterior tibialis. Sensory-no notable sensory deficits in the bilateral lower extremities to touch or pinprick in all dermatomal distributions with the exception to decreased sensation to the right L3, 4, 5 dermatomal distribution Sacroiliac: Tenderness to palpation of right PSIS. Right thigh thrust positive. Right Gregor's test positive. Coordination remains intact.? Gait remains non-antalgic. Back & Pelvis Back image (female): 2 1. Assessment and Plan Assessment and Plan (1) Ischial bursitis: (2) Sacroiliac joint disease: (3) Lumbar stenosis with neurogenic claudication: Plan based on physical exam and lack of response to TFESI and SI nerve block I believe the patient has underlying right ischial bursitis although imaging and physical exam does support lumbar stenosis with NC. at this time I will refer for evaluation and management to Dr Lockwood. I appreciate his care and input
--- NOTE | 2023-09-24 13:32 | PM.CN ---
Consult Note: HPI Data of Consult Requesting Physician: Yulissa Bro NP Primary Care Provider: CAR BLANCO Consult Narrative cc:: CC: Yulissa Bro NP Meds Home Medications and Allergies Home Medications Medication Instructions Recorded Confirmed Type alprazolam 0.5 mg tablet 0.5 mg PO DAILY 07/02/23 09/14/23 History cholestyramine (with sugar) 4 gram ea 07/02/23 History oral powder levothyroxine 125 mcg capsule 125 mcg PO DAILY 07/02/23 09/14/23 History rosuvastatin 40 mg tablet 40 mg PO DAILY 07/02/23 09/14/23 History rosuvastatin 40 mg tablet (Crestor) 40 mg PO DAILY 07/02/23 09/14/23 History sertraline 50 mg tablet 50 mg PO DAILY 07/02/23 09/14/23 History methylprednisolone 4 mg tablets in 4 mg PO DAILY #21 ea 09/24/23 Rx a dose pack (Medrol (Александр)) Allergies Allergy/AdvReac Type Severity Reaction Status Date / Time No Known Drug Allergies Allergy Verified 09/14/23 10:15 Assessment and Plan Assessment and Plan (1) Ischial bursitis: (2) Sacroiliac joint disease: (3) Lumbar stenosis with neurogenic claudication: Plan based on physical exam and lack of response to TFESI and SI nerve block I believe the patient has underlying right ischial bursitis although imaging and physical exam does support lumbar stenosis with NC. at this time I will refer for evaluation and management to Dr Lockwood. I appreciate his care and input
== END 2023-09-24 13:07 | disposition home or self-care (01) ==
PROVIDERS: PCP Family Medicine; Visit Provider Nurse Practitioner
DX: M48.062 Spinal stenosis, lumbar region with neurogenic claudication (principal); M70.70 Other bursitis of hip, unspecified hip; M53.3 Sacrococcygeal disorders, not elsewhere classified
CPT/HCPCS: G0463